=== PATIENT | male | born 1940 | race Caucasian/White ===

== ENCOUNTER 2018-10-13 17:30 | Outpatient (RCR) | payer MEDICARE, OTHER, SELFPAY ==
--- NOTE | 2018-08-13 08:19 | HP.PTEVAL_ITS ---
Patient's Visit Information ANA ROSA FABIAN is a 77 year old M referred to Physical Therapy by MANDI GAONA with a diagnosis of L/S fusion. Date of Evaluation: 08/13/18 Physical Therapist: Juan Manuel Mcnally, PT, ATC - Visit Plan Frequency: 2x /Week Duration: 6 Weeks Plan: Postural education, SKTC/DKTC, LTR, core strenthening, nustep, and HEP - Subjective Findings: DOS: 06/12/18. Pt had L/S fusion L3-5. Pt reports prior to having surgery, his LB was really sore and notes he had L LE pain that extended to his foot. The L LE pain is gone now, but pt reports he continues to have LBP and B hip pain that is very limiting. Pt reports he was told to just rest for the first six weeks, and then to begin PT at that time. 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 Pt reports he has a hard time sleeping for more than 6 hours secondary to pain. 2/10 pain at rest currently, 5/10 pain at worst which is if he walking a lot. - Pain L/S Pain Intensity (Out of 10): 2 Pain Intensity Range: 5 - Objective Neuro: B LE sensation is WNL to light touch. MMT: B LE's 5/5 throughout. L/S ROM: flexion is WNL. All other movements are moderately limited. Gait: Pt is able to ambulate approximately 150 feet until he feels pain in his LB and needs to rest. - Goals Goal 1:: Decreas LBP x 50% to aid with sleep Goal Time Frame: 4-6 Weeks Goal 2:: Increase L/S ROM x 1 grade to aid with IADL's Goal Time Frame: 4-6 Weeks Goal 3:: I with HEP Goal Time Frame: 4-6 Weeks - Rehabilitation Potential Physical Therapy Diagnosis: Pt has LBP, decreased L/S ROM, and intolerance for prolonged ambulation secondary to lumbar spine fusion Rehabilitation Potential: Good - Anticipated Interventions Patient/Client Instruction: Educate patient on: Condition, Plan of Care For the Purpose of:: To improve self management Therapeutic Exercise to Include: Strength training, Endurance training, Body mechanics, Postural training, Flexibilty training, Dynamic Lumbar Stabilization For the Purpose of:: To decrease pain, To increase ROM, To improve muscle performance and motor function Cryotherapy (ice pack, ice massage): Yes For the Purpose of:: To decrease pain Thank you for the opportunity to evaluate your patient. For Medicare and Medicare HMO plans, please review the plan of care and approve it. It will need to be FAXED BACK to us at [phone] for Medicare purposes. For Medicare only, by signing this I certify the plan of care. Please let me know if there are questions or concerns regarding this plan of care. Physician Signature: Date:
--- NOTE | 2019-01-08 11:20 | HP.PT.NRP ---
HP - Discharge Summary (1) - Patient Information ANA ROSA FABIAN was seen in my office for initial evaluation on 08/13/18. The following Plan of Care was established for this patient: Initial Frequency: 2x /Week Initial Duration: 6 Weeks - Anticipated Interventions Patient/Client Instruction: Educate patient on: Condition, Plan of Care For the Purpose of:: To improve self management Therapeutic Exercise to Include: Strength training, Endurance training, Body mechanics, Postural training, Flexibilty training, Dynamic Lumbar Stabilization For the Purpose of:: To decrease pain, To increase ROM, To improve muscle performance and motor function Cryotherapy (ice pack, ice massage): Yes For the Purpose of:: To decrease pain This patient was last seen in our office . Pertinent comments regarding their Physical therapy will appear below: Pt was treated for 8 PT visits for his LBP through the date of 10/13/18. Pt has not returned through todays date, and is discontinued at this time. At this point I will be discontinuing this patient from physical therapy. I would be happy to see this patient again in the future if found appropriate by the physician. Thank you! Juan Manuel Mcnally, PT, ATC
== END 2018-10-13 19:00 | disposition home or self-care (01) ==
LOC: PT 17:30
DX: M16.12 Unilateral primary osteoarthritis, left hip (principal); M43.16 Spondylolisthesis, lumbar region; M47.896 Other spondylosis, lumbar region; M48.062 Spinal stenosis, lumbar region with neurogenic claudication; M48.07 Spinal stenosis, lumbosacral region; M51.36 Other intervertebral disc degeneration, lumbar region; M54.16 Radiculopathy, lumbar region; M54.5 Low back pain
CPT/HCPCS: 97110; 97161

== ENCOUNTER 2022-10-12 17:21 | Inpatient (IN) | payer MEDICARE, OTHER, SELFPAY ==
[2022-10-12] VITALS (7 sets, daily range): BP systolic 129–189; BP diastolic 60–77; PULSE 77–108; RESP 14–28; TEMP 36.3–38.1; O2SAT 94–98; BMI 40.7; BMI 40.2
--- NOTE | 2022-10-12 17:34 | EDS_ITS ---
HPI History of Present Illness Chief Complaint: Palpitations Detail of Chief Complaint: Possible A-fib Informant: patient Narrative Narrative: Patient presents from PCPs office secondary to possible A-fib. He states he went to see his PCP because he is just felt sick for the last 2 days. He states he just felt very weak and had difficulty getting around. He has had a mild cough. No fever noted but did have chills this morning. No vomiting or diarrhea. He denies chest pain, shortness of breath, or palpitations to me. [facility] Medical History Anxiety High cholesterol Hypertension Lumbar radiculopathy Home Medications albuterol sulfate 90 mcg/actuation aerosol inhaler inhalation 10/12/22 [History Last Taken Unknown] alprazolam 0.5 mg tablet mg 10/12/22 [History Last Taken Unknown] ascorbic acid (vitamin C) 1,000 mg tablet,extended release (Vitamin C ER) 1,000 mg PO Q12H 10/12/22 [History Last Taken Unknown] cholecalciferol (vitamin D3) 25 mcg (1,000 unit) tablet (Vitamin D3) 10/12/22 [History Last Taken Unknown] fluticasone propionate 50 mcg/actuation nasal spray,suspension intranasal 10/12/22 [History Last Taken Unknown] furosemide 40 mg tablet (Lasix) 40 mg PO DAILY 10/12/22 [History Last Taken Unknown] gabapentin 300 mg tablet 300 mg PO 4X/DAY 10/12/22 [History Last Taken Unknown] metoprolol tartrate 25 mg tablet mg 10/12/22 [History Last Taken Unknown] mirtazapine 30 mg tablet 30 mg PO QHS 10/12/22 [History Last Taken Unknown] multivitamin tab 10/12/22 [History Last Taken Unknown] promethazine-DM 10/12/22 [History Last Taken Unknown] rosuvastatin 5 mg tablet 5 mg PO DAILY 10/12/22 [History Last Taken Unknown] valsartan 160 mg tablet 160 mg PO DAILY 10/12/22 [History Last Taken Unknown] venlafaxine 150 mg capsule,extended release 24 hr 150 mg PO DAILY 10/12/22 [History Last Taken Unknown] vitamin B12 1,000 mcg-folic acid 400 mcg sublingual tablet tab sublingual 10/12/22 [History Last Taken Unknown] Allergy/AdvReac Type Severity Reaction Status Date / Time morphine Allergy Shortness Verified 10/12/22 17:23 of breath Surgical History Heart valve replaced Social History Smoking Status: Former smoker ROS ROS ED Constitutional Constitutional ED: Reports chills; Denies fever(s) Eyes Eyes: Denies change in vision or discharge from eye(s) ENT ENT ED: Denies discharge from eye(s), rhinorrhea or sore throat Cardiovascular Cardiovascular: Denies chest pain or palpitations Respiratory/Chest Respiratory/Chest: Reports cough; Denies dyspnea Gastrointestinal Gastrointestinal: Denies abdominal pain, diarrhea, nausea or vomiting Genitourinary Genitourinary ED: Denies dysuria Musculoskeletal Musculoskeletal: Reports myalgias; Denies back pain or extremity pain Integumentary Denies Abrasions or rash Neurologic Neurologic: Reports weakness; Denies headache(s) Psychiatric Psychiatric: Denies anxiety or depression Allergic/Immunologic Allergic/Immunologic ED: Denies lip swelling or urticaria EXAM Physical Exam Const Vital Signs: 10/12/22 17:23 10/12/22 17:49 10/12/22 17:50 Temperature 97.4 F L Temperature Source Temporal Pulse Rate 108 H 98 Respiratory Rate 18 14 Respiratory Effort Normal Blood Pressure 189/77 H Blood Pressure Mean 114 Pulse Ox 97 Oxygen Delivery Method Room Air 10/12/22 19:33 Temperature 99.2 F H Temperature Source Oral Pulse Rate 77 Respiratory Rate 28 H Respiratory Effort Blood Pressure 129/60 H Blood Pressure Mean 83 Pulse Ox 94 Oxygen Delivery Method Room Air Positive well nourished and well developed General Appearance ED: well developed HEENT Reports normocephalic and head/scalp atraumatic Eyes PERRL and EOMs intact bilaterally Neck supple Chest Wall inspection of chest normal and palpation of chest normal Resp normal respiratory effort and clear to auscultation bilaterally Cardio regular rate and regular rhythm GI normal to inspection, nondistended, normoactive bowel sounds Palpation: soft Extremity normal to inspection Neuro oriented x3 Neuro Narrative: No focal neurologic deficits Sensorium / Orientation: alert Psych mental status grossly normal Skin no rashes or lesions noted MDM MDM MDM Narrative Medical decision making narrative: Patient placed on compliance monitor. EKG obtained to evaluate for cardiac arrhythmia/ischemia. Labwork obtained to evaluate for leukocytosis, anemia, and electrolyte derangement. Urinalysis obtained to evaluate for infection/hematuria. Lab Data Attestation: I reviewed the patient's lab results. Labs: Laboratory Results - last 24 hr 10/12/22 10/12/22 10/12/22 17:46 17:46 19:00 WBC 23.6 H RBC 4.66 Hgb 14.9 Hct 45.3 MCV 97.2 H MCH 32.0 MCHC 32.9 RDW Std Deviation 45.4 H RDW Coeff of [place] 12.8 Plt Count 129 L MPV 10.3 Immature Gran % (Auto) 0.700 Neut % (Auto) 86.8 H Lymph % (Auto) 4.2 L [place] % (Auto) 8.0 Eos % (Auto) 0.0 Baso % (Auto) 0.3 Absolute Neuts (auto) 20.5 H Absolute Lymphs (auto) 0.99 Nucleated RBC % 0 Differential Comment SCANNED Diff Path Review May foll Sodium 136 Potassium 3.9 Chloride 108 H Carbon Dioxide 22.0 Anion Gap 6 BUN 20 H Creatinine 1.58 H Estim Creat Clear Calc 34.86 Est GFR (MDRD) Af Amer 55 L Est GFR (MDRD) Non-Af 45 L BUN/Creatinine Ratio 12.7 Glucose 126 H Lactic Acid Calcium 8.7 Troponin I High Sens 38 Urine Color Yellow Urine Clarity Sl. Cloudy Urine pH 5.0 Ur Specific [place] 1.020 Urine Protein 30 H Urine Glucose (UA) Normal Urine Ketones 5 H Urine Occult Blood 25 H Urine Nitrite Positive H Urine Bilirubin 1 H Urine Urobilinogen 4 H Ur Leukocyte Esterase 500 H Urine RBC 0-5 SEEN Urine WBC 25-50 SEEN Ur Squamous Epith Cells 0 SEEN Urine Bacteria 3+ Urine Mucus 0 SEEN 10/12/22 10/12/22 19:45 20:47 WBC RBC Hgb Hct MCV MCH MCHC RDW Std Deviation RDW Coeff of [place] Plt Count MPV Immature Gran % (Auto) Neut % (Auto) Lymph % (Auto) [place] % (Auto) Eos % (Auto) Baso % (Auto) Absolute Neuts (auto) Absolute Lymphs (auto) Nucleated RBC % Differential Comment Diff Path Review Sodium Potassium Chloride Carbon Dioxide Anion Gap BUN Creatinine Estim Creat Clear Calc Est GFR (MDRD) Af Amer Est GFR (MDRD) Non-Af BUN/Creatinine Ratio Glucose Lactic Acid Cancelled 1.8 Calcium Troponin I High Sens Urine Color Urine Clarity Urine pH Ur Specific [place] Urine Protein Urine Glucose (UA) Urine Ketones Urine Occult Blood Urine Nitrite Urine Bilirubin Urine Urobilinogen Ur Leukocyte Esterase Urine RBC Urine WBC Ur Squamous Epith Cells Urine Bacteria Urine Mucus Radiography Diagnostic Testing: Clinical Impression(s) from Imaging Studies Chest X-Ray 10/12/22 18:00 IMPRESSION: No acute cardiopulmonary disease. Electronically Signed: Kandy Winston MD at 18:19 EDT Reading Location ID and State: [id number] / Tel , Service support , Treatment and Re-Evaluation :: CBC was a white count of 23.6 with 87% neutrophils. Chemistry studies reveal a BUN of 20 and a creatinine of 1.58. Last creatinine I have to compare to is from 7 years ago and at that time was 1.22. Urinalysis is positive for nitrites with 25-50 white cells and 3+ bacteria. Urine has been sent for culture and he is given a dose of Rocephin. Lactic acid is obtained and is normal at 1.8. Blood cultures were sent. EKG is sinus rhythm with marked sinus arrhythmia. Bifascicular block noted. The EKG from the primary care office is reviewed. This appears to me to be sinus rhythm with PVC. There is baseline artifact making the P waves difficult to visualize, however the QRS complexes are evenly spaced and I do believe this is a sinus rhythm. Patient ambulated with nursing staff. He was weak. He does tell me that he f ell earlier today and was too weak to get himself up. I do feel it is in his best interest for observation and IV antibiotics. I will speak with the hospitalist. Discharge Plan Triage Chief Complaint: Palpitations ED Provider: Janet Cade Dx/Rx/DC Orders Clinical Impression: UTI (urinary tract infection), Weakness, Fall Prescriptions: No Action furosemide [Lasix] 40 mg Tablet 40 mg PO DAILY albuterol sulfate 90 mcg/actuation Hfa Aerosol Inhaler INHALATION fluticasone propionate 50 mcg/actuation spray,suspension INTRANASAL gabapentin 300 mg Tablet 300 mg PO 4X/DAY promethazine-DM multivitamin Tablet Vitamin C 1,000 mg Tablet Extended Release 1,000 mg PO Q12H venlafaxine 150 mg Capsule,Extended Release 24hr 150 mg PO DAILY alprazolam 0.5 mg tablet mirtazapine 30 mg Tablet 30 mg PO QHS valsartan 160 mg Tablet 160 mg PO DAILY rosuvastatin 5 mg Tablet 5 mg PO DAILY metoprolol tartrate 25 mg tablet cholecalciferol (vitamin D3) [Vitamin D3] 25 mcg (1,000 unit) Tablet vitamin [id number] acid 1,000-400 mcg Tablet, Sublingual SUBLINGUAL Primary Care Provider: Khai Ibarra NP Referrals: Care Physician,No Primary [Non-Staff] - Disposition Disposition: Acute Care Hospital [facility], [place]
--- NOTE | 2022-10-12 17:34 | EKG12_ITS ---
Test Reason : Blood Pressure : / mmHG Vent. Rate : 074 BPM Atrial Rate : 074 BPM P-R Int : 214 ms QRS Dur : 150 ms QT Int : 432 ms P-R-T Axes : 099 -55 041 degrees QTc Int : 479 ms Sinus rhythm with marked sinus arrhythmia with 1st degree A-V block Right bundle branch block Left anterior fascicular block Bifascicular block Abnormal ECG Confirmed by JACQUELINE MANZANO, MARTHA ([id number]), makeup editor WANDA HUERTA ([id number]) on 10/15/2022 11:04:48 AM Referred By: RIVERA Confirmed By:MARTHA PHILLIPS MD
[2022-10-12 17:56] LABS: Absolute Lymphocyte Count 0.99 X10^3/uL (0.83-4.51); Absolute Neutrophil Count 20.5 X10^3/uL (2.0-7.7); Basophil# 0.08 X10^3/uL; Basophil% 0.3 % (0-1); Eosinophil# 0.01 X10^3/uL; Hematocrit 45.3 % (40-54); Hemoglobin 14.9 g/dL (13.0-16.5); Lymphocyte # 0.99 X10^3/ul (0.83-4.51); Lymphocyte % 4.2 % (19-41); Mean Corp Hgb Conc 32.9 g/dL (32-36); Mean Corpuscular Volume 97.2 fL (80-94); Mean Platelet Vol. 10.3 fl (6.2-12.0); Monocyte# 1.89 X10^3/uL; NRBC Flagged by Analyzer 0 % (0-5); Neutrophil # 20.45 X10^3/uL (2.7-7.7); Neutrophil % 86.8 % (47-70); POSITIVE DIFFERENTIAL YES; Platelet Count 129 K/mm3 (150-450); RBC Distribution Width CV 12.8 % (11.6-14.6); RBC Distribution Width SD 45.4 fl (35.1-43.9); Red Blood Count 4.66 M/mm3 (4.6-6.2); White Blood Count 23.6 K/mm3 (4.4-11.0)
--- NOTE | 2022-10-12 18:00 | RAD_ITS ---
INDICATION: cough EXAMINATION/TECHNIQUE: X-RAY - XR Chest 1 View COMPARISON: 05/14/2016. FINDINGS: LINES/DEVICES: None. LUNGS: No consolidation, edema or effusion. No pneumothorax. MEDIASTINUM AND CARDIOVASCULAR STRUCTURES: Cardiac silhouette not enlarged. Prior sternotomy and aortic valve replacement. Central airways and mediastinal contour are unremarkable. BONES AND SOFT TISSUES: Prior cervical fusion. RAD/Chest 1 View (Portable) IMPRESSION: No acute cardiopulmonary disease. Electronically Signed: Kandy Winston MD at 18:19 EDT Reading Location ID and State: [id number] / Tel , Service support ,
[2022-10-12] MEDS: 0.9% Normal Saline 1,000 ML 150 ML IV (18:01)
[2022-10-12 18:18] LABS: Differential Indicated SCAN CRITERIA MET
[2022-10-12 18:24] LABS: Anion Gap 6 (5-15); BUN 20 mg/dL (7-18); BUN/Creat Ratio 12.7 RATIO (10-20); Calcium,Total 8.7 mg/dL (8.5-10.1); Chloride 108 mmol/L (98-107); Creatinine, Serum 1.58 mg/dL (0.70-1.30); EST Glomerular Filtration Rate 45 mL/min (>60); Est Glom Filt Rate - Afr Amer 55 mL/min (>60); Estimated Creatinine Clearance 34.86 ml/min; Glucose 126 mg/dL (74-106); Potassium 3.9 mmol/L (3.5-5.1); Sodium Level 136 mmol/L (136-145); Troponin-I HS 38 pg/mL (3.0-78.0)
[2022-10-12 18:31] LABS: Differential Comment SCANNED
[2022-10-12 19:12] LABS: Color, Urine Yellow (Yellow); Glucose, Dipstick Normal (Normal); Ketone-Dipstick 5 mg/dl (Negative); Leukocyte Esterase-Dipstick 500 /ul (Negative); Nitrite-Dipstick Positive (Negative); Occult Blood-Urine 25 /ul (Negative); Protein-Dipstick 30 mg/dl (Negative); Urine Bilirubin Dipstick 1 mg/dL (Negative); Urine Clarity Sl. Cloudy (Clear); Urine Urobilinogen 4 mg/dl (Normal)
[2022-10-12 19:15] LABS: Mucous, Urine 0 SEEN /hpf (<or=2+); Squamous Epithelial Cells - UA 0 SEEN /hpf (0-5)
[2022-10-12 19:23] LABS: Bacteria 3+ /hpf (None Seen); White Blood Cells 25-50 SEEN /hpf (0-5)
[2022-10-12 19:24] LABS: Red Blood Cells-Urine 0-5 SEEN /hpf (0-5)
[2022-10-12] MEDS: Ceftriaxone 1 GM/50 ML BAG IV (19:51)
--- NOTE | 2022-10-12 20:43 | ED.RN ---
called lab to inquire about lactic acid. reports hemolyzed.
[2022-10-12 21:17] LABS: Lactic Acid 1.8 mmol/L (0.4-1.9)
--- NOTE | 2022-10-12 21:35 | HP.PCM.HOS_ITS ---
HPI - General General Date of Admission: 10/12/22 Date of Service: 10/12/22 Chief Complaint: Debility, Weakness. HPI Narrative The patient is an 82 y/o M w/ PMHx: Anxiety and Depression, Former tobacco use, Chronic anemia, Valvular Heart Disease s/p AVR Bovine w/ wires still in place not a candidate for MRI of note, CKD stage III unclear subtype, Chronic Thrombocytopenia, Anxiety and Depression, HTN, HLD, Chronic lumbar back pain with radiculopathy who presents to the [facility] ED on 10/12/2022 with history of increased fatigue and malaise with mild cough with no fever however he did have chills on a.m. of day of presentation with no nausea, emesis, diarrhea, dyspnea but did state his heart was mildly increased prompting PCP evaluation and in the office PCP was concerned for EKG with ? new onset PAF prompting referral to the ED for further work-up. In the ED upon further questioning he does admit to dysuria as well as frequency and hesitancy over the last 2 days. He denies any other type of upper respiratory type symptoms. Work-up in the ED included T97.4, heart initially 108 with most recent repeat 98, BP 189/77, respiratory r ate 18, 97% oxygenation, CBC with WC 23.6, hemoglobin 14.9, platelet 129 with significant left shift, BMP with chloride 108, BUN/creat 20/1.58, glucose 128, troponin 38, lactic acid 1.8, urinalysis with elevated specific gravity 1.020, protein 30, ketone 5, occult blood 25, urine nitrite positive, urine bilirubin 1, urine urobilinogen 4, leukocyte esterase 500, urine to BCs 25-50 with 3+ urine bacteria, chest x-ray with no acute cardiopulmonary findings, SARS COVID and influenza antigen rapid negative, urine culture pending per ED, blood culture x2 pending per ED, EKG was sinus rhythm with occasional PVC although baseline artifact makes P waves difficult to visualize. In the ED attempted to walk patient however he was significantly weak and did report to the staff that he was unable to even get himself up at home secondary to his weakness with notably elevated fall risk. He does report that he fell at home earlier in the day already. In the ED patient ministered normal saline maintenance IV fluids as well as Rocephin 1 g IV. [facility] Medical History Allergic rhinitis Anxiety and depression Chronic anemia Chronic idiopathic thrombocytopenia CKD (chronic kidney disease), stage III Former tobacco use High cholesterol Hypertension Lumbar radiculopathy Valvular heart disease Home Medications albuterol sulfate 90 mcg/actuation aerosol inhaler inhalation 10/12/22 [History Last Taken Unknown] alprazolam 0.5 mg tablet mg 10/12/22 [History Last Taken Unknown] ascorbic acid (vitamin C) 1,000 mg tablet,extended release (Vitamin C ER) 1,000 mg PO Q12H 10/12/22 [History Last Taken Unknown] cholecalciferol (vitamin D3) 25 mcg (1,000 unit) tablet (Vitamin D3) 10/12/22 [History Last Taken Unknown] fluticasone propionate 50 mcg/actuation nasal spray,suspension intranasal 10/12/22 [History Last Taken Unknown] furosemide 40 mg tablet (Lasix) 40 mg PO DAILY 10/12/22 [History Last Taken Unknown] gabapentin 300 mg tablet 300 mg PO 4X/DAY 10/12/22 [History Last Taken Unknown] metoprolol tartrate 25 mg tablet mg 10/12/22 [History Last Taken Unknown] mirtazapine 30 mg tablet 30 mg PO QHS 10/12/22 [History Last Taken Unknown] multivitamin tab 10/12/22 [History Last Taken Unknown] promethazine-DM 10/12/22 [History Last Taken Unknown] rosuvastatin 5 mg tablet 5 mg PO DAILY 10/12/22 [History Last Taken Unknown] valsartan 160 mg tablet 160 mg PO DAILY 10/12/22 [History Last Taken Unknown] venlafaxine 150 mg capsule,extended release 24 hr 150 mg PO DAILY 10/12/22 [History Last Taken Unknown] vitamin B12 1,000 mcg-folic acid 400 mcg sublingual tablet tab sublingual 10/12/22 [History Last Taken Unknown] Allergy/AdvReac Type Severity Reaction Status Date / Time morphine Allergy Shortness Verified 10/12/22 17:23 of breath Family History (Updated 10/12/22 @ 22:[address] Mariama Jansen MD) Mother Anemia Glaucoma Father Prostate cancer Surgical History Heart valve replaced S/P total knee replacement Social History (Updated 10/12/22 @ 22:[address] Mariama Jansen MD) household members: none Smoking Status: Former smoker how long ago did patient quit smoking: Smoked 1 ppd teen until quit 1967 after of his daughter. alcohol intake: never substance use type: does not use ROS ROS Narrative Admission Review of Systems: CONSTITUTIONAL: No weight loss, fever, chills, + weakness or fatigue. HEENT: Eyes: No visual loss, blurred vision, double vision or yellow sclerae. Ears, Nose, Throat: No hearing loss, sneezing, congestion, runny nose or sore throat. SKIN: No rash or itching, lesions, wounds. CARDIOVASCULAR: + Mild chronic BL LE ankle/pedal edema. No chest pain, chest pressure or chest discomfort, palpitations, orthopnea, syncopal events. RESPIRATORY: + Mild nonproductive cough. No shortness of breath, wheezing, hemoptysis. GASTROINTESTINAL: No anorexia, nausea, vomiting or diarrhea, abdominal pain, melena, BRBPR. GENITOURINARY: + dysuria, frequency, hesitancy, No urgency or retention. NEUROLOGICAL: No headache, dizziness, syncope, paralysis, ataxia, numbness or tingling in the extremities, focal weakness, change in bowel or bladder control, seizure. MUSCULOSKELETAL: + muscle, back pain, joint pain or stiffness. HEMATOLOGIC: No anemia, bleeding or bruising. LYMPHATICS: No enlarged nodes. No history of splenectomy. PSYCHIATRIC: No history of depression or anxiety. ENDOCRINOLOGIC: No reports of sweating, cold or heat intolerance. No polyuria or polydipsia. ALLERGIES: + history of rhinitis. Vital Signs Vital Signs Vital Signs: 10/12/22 17:23 10/12/22 17:49 10/12/22 17:50 Temperature 97.4 F L Temperature Source Temporal Pulse Rate 108 H 98 Respiratory Rate 18 14 Respiratory Effort Normal Blood Pressure 189/77 H Blood Pressure Mean 114 Pulse Ox 97 Oxygen Delivery Method Room Air 10/12/22 19:33 Temperature 99.2 F H Temperature Source Oral Pulse Rate 77 Respiratory Rate 28 H Respiratory Effort Blood Pressure 129/60 H Blood Pressure Mean 83 Pulse Ox 94 Oxygen Delivery Method Room Air Weight Weight: 260 lb Body Mass Index (BMI) 40.7 Physical Exam Narrative Physical Examination: General: Awake, alert, oriented x 3 and cooperative, seated upright in the ED bed in no apparent distress, fatigued appearing. Skin: Normal color, normal turgor, no icterus, no cyanosis. HEENT: AT/NC, EOMI, PERRLA, mildly dry MM, no carotid bruits or JVD noted; however thickened neck and dee hair makes evaluation difficult. Lungs: Mild diminished, greater bases, appropriate effort, no rales, ronchi or wheezing. Heart: Currently regular rate and rhythm; no gallop, rub audible, s/p AVR. Abdomen: Soft, morbidly obese, NTTP except mild suprapubic discomfort, ND, hyperactive BS, no obvious HSM however habitus makes evaluation difficult. Extremities: No cyanosis, no clubbing, mild pedal edema bilaterally. Neurological: Patient awake, alert, oriented as noted, cognitive function intact; pupils equally reactive to light and accommodation, cranial nerves grossly normal, moving all 4 extremities, no focal deficits, strength moderately global decrease secondary to acute presentation complaints. Psychiatric: Affect appears mildly fatigued otherwise normal, no acute evidence of depressive or anxiety feelings. Results Lab / Micro Data Result Diagrams: 10/12/22 17:46 10/12/22 17:46 Labs: Laboratory Results - last 24 hr 10/12/22 17:46: WBC 23.6 H, RBC 4.66, Hgb 14.9, Hct 45.3, MCV 97.2 H, MCH 32.0, MCHC 32.9, RDW Std Deviation 45.4 H, RDW Coeff of [place] 12.8, Plt Count 129 L, MPV 10.3, Immature Gran % (Auto) 0.700, Neut % (Auto) 86.8 H, Lymph % (Auto) 4.2 L, [place] % (Auto) 8.0, Eos % (Auto) 0.0, Baso % (Auto) 0.3, Absolute Neuts (auto) 20.5 H, Absolute Lymphs (auto) 0.99, Nucleated RBC % 0, Differential Comment SCANNED, Diff Path Review October10/12/22 17:46: Sodium 136, Potassium 3.9, Chloride 108 H, Carbon Dioxide 22.0, Anion Gap 6, BUN 20 H, Creatinine 1.58 H, Estim Creat Clear Calc 34.86, Est GFR (MDRD) Af Amer 55 L, Est GFR (MDRD) Non-Af 45 L, BUN/Creatinine Ratio 12.7, Glucose 126 H, Calcium 8.7, Troponin I High Sens 38 10/12/22 19:00: Urine Color Yellow, Urine Clarity Sl. Cloudy, Urine pH 5.0, Ur Specific [place] 1.020, Urine Protein 30 H, Urine Glucose (UA) Normal, Urine Ketones 5 H, Urine Occult Blood 25 H, Urine Nitrite Positive H, Urine Bilirubin 1 H, Urine Urobilinogen 4 H, Ur Leukocyte Esterase 500 H, Urine RBC 0-5 SEEN, Urine WBC 25-50 SEEN, Ur Squamous Epith Cells 0 SEEN, Urine Bacteria 3+, Urine Mucus 0 SEEN 10/12/22 19:45: Lactic Acid Cancelled 10/12/22 20:47: Lactic Acid 1.8 Micro: Microbiology 10/12/22 17:40 Nasal Secretion SARS-CoV-2 & FLU Antigen (Rapid) - Final Radiology Impression Chest X-Ray 10/12/22 18:00 IMPRESSION: No acute cardiopulmonary disease. Electronically Signed: Kandy Winston MD at 18:19 EDT Reading Location ID and State: [id number] / Tel , Service support , Assessment & Plan Assessment/Plan (1) UTI (urinary tract infection): PLAN: Plan The patient is an 82 y/o M w/ PMHx: Anxiety and Depression, Former tobacco use, Chronic anemia, Valvular Heart Disease s/p AVR Bovine w/ wires still in place not a candidate for MRI of note, CKD stage III unclear subtype, Chronic Thrombocytopenia, Anxiety and Depression, HTN, HLD, Chronic lumbar back pain with radiculopathy who presents to the [facility] ED on 10/12/2022 with history of increased fatigue and malaise with mild cough with no fever however he did have chills on a.m. of day of presentation with no nausea, emesis, diarrhea, dyspnea but did state his heart was mildly increased prompting PCP evaluation and in the office PCP was concerned for EKG with ? new onset PAF prompting referral to the ED for further work-up. #1. Acute Debility, Weakness, Adult FTT w/ Fall and elevated repeat Fall risk secondary to Acute Complicated Urinary Tract Infection: Will admit to MS, UA upon ED evaluation remarkable, pending UCx, continue IVFs, monitor I/Os, continue IV Rocephin w/ transition as able pending sensitivities and speciation. PT/OT/CM consultations for discharge planning. Blood culture x2 pending per ED. #2. Chronic anemia: Admission hemoglobin currently 14.9 however in the past in 2015 patient baseline appears primarily 9-10 but last prior to current presentation 05/21/2016 11.2, MCV at those times initially normocytic but eventually mildly macrocytic, will repeat CBC in AM. #3. Valvular heart disease: s/p AV replacement with bovine valve, presumed bioprosthetic as not chronically anticoagulated, encourage continued outpatient follow-up with cardiology as previously arranged, had been following with Dr. Medina and is now following with his LEAN MANUFACTURING LEADER. #4. CKD stage III, unclear subtype: Admission BUN/creatinine 20/1.58, baseline prior noted primarily 1.2 up to 1.5, continue to trend. #5. Chronic thrombocytopenia: Patient with chart evidence of prior thrombocytopenia, baseline has primarily been 120s to 130s when it is lower otherwise patient has been 150s, these values however have been remote, admission platelet 129, will continue to trend. #6. Anxiety and depression: We will continue patient home venlafaxine and low- dose alprazolam regimen, clarifying if also on mirtazapine. #7. Former tobacco use: Encourage continued tobacco cessation. #8. Hypertension: Continue home regimen including valsartan, metoprolol, Lasix with hold parameters as needed, PRN hydralazine. #9. Hyperlipidemia: We will continue patient on statin therapy. #10. Allergic rhinitis: We will continue patient home fluticasone regimen. #11. Chronic lumbar back pain with radiculopathy: We will continue patient on gabapentin regimen, maintain on fall precautions, therapies consulted as noted. #12. DVT prophylaxis: Lovenox cautiously given chronic thrombocytopenia. #13. CODE status: Patient HCPOA and living will are not in place however patient does report that if he needed medical decisions made on his behalf his daughter and his son who are present would be his decision makers. Discussed CODE status at length including difference between FULL code, DNR-CCA and DNR-CC status. Following discussions about the differences in these status, requested Full Code status. Advanced Care Planning Face to Face Time:16 minutes. Admission Evaluation Time spent evaluating chart, patient history, patient evaluation, care planning and discussion with specialists: 55 minutes. Charges/Coding Visit Charges Inpatient E&M: 14649 Init Hosp L2 Procedures Hospitalists Procedures: 99181 Advncd Care Plan 30 Min
[2022-10-12] MEDS: Acetaminophen 500 MG Tablet 1000 MG PO (22:12)
[2022-10-12] MEDS: 0.9% Normal Saline 1,000 ML 100 ML IV (23:16)
[2022-10-12] MEDS: Metoprolol Tartrate 25 MG Tablet PO (23:17)
[2022-10-12] MEDS: Mirtazapine 30 MG Tablet PO (23:17)
[2022-10-12] MEDS: Gabapentin 300 MG Capsule PO (23:25)
[2022-10-13] VITALS (7 sets, daily range): BP systolic 114–135; BP diastolic 46–106; PULSE 74–79; RESP 16–19; TEMP 36.7–37.4; O2SAT 92–97; BMI 40.3
[2022-10-13 06:32] LABS: Absolute Lymphocyte Count 1.17 X10^3/uL (0.83-4.51); Absolute Neutrophil Count 17.4 X10^3/uL (2.0-7.7); Basophil# 0.07 X10^3/uL; Basophil% 0.3 % (0-1); Eosinophil# 0.13 X10^3/uL; Eosinophils% 0.6 % (0-5); Hematocrit 43.6 % (40-54); Lymphocyte # 1.17 X10^3/ul (0.83-4.51); Lymphocyte % 5.7 % (19-41); Mean Corp Hgb Conc 32.1 g/dL (32-36); Mean Corpuscular Hgb 31.7 pg (27.0-32.0); Mean Corpuscular Volume 98.9 fL (80-94); Mean Platelet Vol. 10.5 fl (6.2-12.0); Monocyte# 1.68 X10^3/uL; Monocyte% 8.2 % (0-10); NRBC Flagged by Analyzer 0 % (0-5); Neutrophil # 17.36 X10^3/uL (2.7-7.7); Neutrophil % 84.4 % (47-70); POSITIVE DIFFERENTIAL YES; Platelet Count 100 K/mm3 (150-450); RBC Distribution Width CV 12.7 % (11.6-14.6); RBC Distribution Width SD 46.6 fl (35.1-43.9); Red Blood Count 4.41 M/mm3 (4.6-6.2); White Blood Count 20.6 K/mm3 (4.4-11.0)
[2022-10-13 07:00] LABS: ALB/GLOB Ratio 0.8 RATIO (0.9-2.4); AST(SGOT) 20 U/L (15-37); Alanine Aminotransfer ALT/SGPT 20 U/L (16-61); Albumin, Serum 2.7 g/dL (3.2-5.0); Alkaline Phosphatase 87 U/L (45-117); Anion Gap 3 (5-15); BUN 21 mg/dL (7-18); Calcium,Total 8.6 mg/dL (8.5-10.1); Chloride 112 mmol/L (98-107); Creatinine, Serum 1.31 mg/dL (0.70-1.30); EST Glomerular Filtration Rate 56 mL/min (>60); Est Glom Filt Rate - Afr Amer 68 mL/min (>60); Estimated Creatinine Clearance 42.05 ml/min; Globulin 3.4 g/dL (2.2-4.2); Glucose 117 mg/dL (74-106); Protein, Total 6.1 g/dL (6.4-8.2); Sodium Level 139 mmol/L (136-145)
[2022-10-13 07:12] LABS: Differential Indicated SCAN CRITERIA MET
--- NOTE | 2022-10-13 07:23 | PN.HOSP_ITS ---
Reason for Visit Reason for Visit: Diagnoses Urinary tract infection, site not specified (10/12/22) Subjective Subjective Complains of penile pain. Objective Data Objective Data Vital Signs: Vital Signs Temp Pulse Resp BP Pulse Ox O2 Del Method 37.4 C H 76 16 122/47 H 94 Room Air 10/13/22 05:36 10/13/22 05:36 10/13/22 05:36 10/13/22 05:36 10/13/22 05:36 10/13/22 05:36 Oxygen Delivery Method Room Air Weight: 116.5 kg Body Mass Index (BMI) 40.3 Intake & Output: Intake and Output for Last 24 Hours 10/11/22 10/12/22 10/13/22 23:59 23:59 23:59 Intake Total 1050 / 1150 300 / 300 Balance 1050 / 1150 300 / 300 Lab / Micro Data Result Diagrams: 10/13/22 05:20 10/13/22 05:20 Labs: Laboratory Results - last 24 hr 10/12/22 17:46: WBC 23.6 H, RBC 4.66, Hgb 14.9, Hct 45.3, MCV 97.2 H, MCH 32.0, MCHC 32.9, RDW Std Deviation 45.4 H, RDW Coeff of [place] 12.8, Plt Count 129 L, MPV 10.3, Immature Gran % (Auto) 0.700, Neut % (Auto) 86.8 H, Lymph % (Auto) 4.2 L, [place] % (Auto) 8.0, Eos % (Auto) 0.0, Baso % (Auto) 0.3, Absolute Neuts (auto) 20.5 H, Absolute Lymphs (auto) 0.99, Nucleated RBC % 0, Differential Comment SCANNED, Diff Path Review October10/12/22 17:46: Sodium 136, Potassium 3.9, Chloride 108 H, Carbon Dioxide 22.0, Anion Gap 6, BUN 20 H, Creatinine 1.58 H, Estim Creat Clear Calc 34.86, Est GFR (MDRD) Af Amer 55 L, Est GFR (MDRD) Non-Af 45 L, BUN/Creatinine Ratio 12.7, Glucose 126 H, Calcium 8.7, Troponin I High Sens 38 10/12/22 17:46: Magnesium 2.0 10/12/22 19:00: Urine Color Yellow, Urine Clarity Sl. Cloudy, Urine pH 5.0, Ur Specific [place] 1.020, Urine Protein 30 H, Urine Glucose (UA) Normal, Urine Ketones 5 H, Urine Occult Blood 25 H, Urine Nitrite Positive H, Urine Bilirubin 1 H, Urine Urobilinogen 4 H, Ur Leukocyte Esterase 500 H, Urine RBC 0-5 SEEN, Urine WBC 25-50 SEEN, Ur Squamous Epith Cells 0 SEEN, Urine Bacteria 3+, Urine Mucus 0 SEEN 10/12/22 19:45: Lactic Acid Cancelled 10/12/22 20:47: Lactic Acid 1.8 10/13/22 05:20: WBC 20.6 H, RBC 4.41 L, Hgb 14.0, Hct 43.6, MCV 98.9 H, MCH 31.7, MCHC 32.1, RDW Std Deviation 46.6 H, RDW Coeff of [place] 12.7, Plt Count 100 L, MPV 10.5, Immature Gran % (Auto) 0.800, Neut % (Auto) 84.4 H, Lymph % (Auto) 5.7 L, [place] % (Auto) 8.2, Eos % (Auto) 0.6, Baso % (Auto) 0.3, Absolute Neuts (auto) 17.4 H, Absolute Lymphs (auto) 1.17, Nucleated RBC % 0 10/13/22 05:20: Sodium 139, Potassium 4.0, Chloride 112 H, Carbon Dioxide 24.0, Anion Gap 3 L, BUN 21 H, Creatinine 1.31 H, Estim Creat Clear Calc 42.05, Est GFR (MDRD) Af Amer 68, Est GFR (MDRD) Non-Af 56 L, BUN/Creatinine Ratio 16.0, Glucose 117 H, Calcium 8.6, Total Bilirubin 1.50 H, AST 20, ALT 20, Alkaline Phosphatase 87, Total Protein 6.1 L, Albumin 2.7 L, Globulin 3.4, Albumin/Globulin Ratio 0.8 L Micro: Microbiology 10/12/22 17:40 Nasal Secretion SARS-CoV-2 & FLU Antigen (Rapid) - Final Radiography Diagnostic Testing: Radiology Impression Chest X-Ray 10/12/22 18:00 IMPRESSION: No acute cardiopulmonary disease. Electronically Signed: Kandy Winston MD at 18:19 EDT Reading Location ID and State: [id number] / Tel , Service support , Physical Exam Const alert and no apparent distress HEENT head/scalp atraumatic Resp normal respiratory effort, no retractions, no use of accessory muscles and clear to auscultation bilaterally Cardio regular rate, regular rhythm, S1 normal heart sound and S2 normal heart sound GI normal to inspection, nondistended, normoactive bowel sounds, soft to palpation, non-tender and non-distended GI Narrative: : no penile edema, nor discharge. No scrotal erythema. Assessment & Plan Assessment/Plan (1) UTI (urinary tract infection): PLAN: UA concerning UCx pending, BCx pending Continue with CTX (2) Weakness: PLAN: Acute Debility, Weakness, Adult FTT w/ Fall and elevated repeat Fall risk secondary to Acute Complicated Urinary Tract Infection: PT/OT/CM consultations for discharge planning. PLAN: Plan The patient is an 82 y/o M w/ PMHx: Anxiety and Depression, Former tobacco use, Chronic anemia, Valvular Heart Disease s/p AVR Bovine w/ wires still in place not a candidate for MRI of note, CKD stage III unclear subtype, Chronic T hrombocytopenia, Anxiety and Depression, HTN, HLD, Chronic lumbar back pain with radiculopathy who presents to the [facility] ED on 10/12/2022 with history of increased fatigue and malaise with mild cough with no fever however he did have chills on a.m. of day of presentation with no nausea, emesis, diarrhea, dyspnea but did state his heart was mildly increased prompting PCP evaluation and in the office PCP was concerned for EKG with ? new onset PAF prompting referral to the ED for further work-up. Chronic conditions: * Chronic anemia: Admission hemoglobin currently 14.9 however in the past in 2016 patient baseline appears primarily 9-10 but last prior to current presentation 05/21/2016 11.2, MCV at those times initially normocytic but eventually mildly macrocytic, will repeat CBC in AM.Valvular heart disease: s/p AV replacement with bovine valve, presumed bioprosthetic as not chronically anticoagulated, encourage continued outpatient follow-up with cardiology as previously arranged, had been following with Dr. Medina and is now following with his ONLINE MERCHANDISING SPECIALIST. * CKD stage III, unclear subtype: Admission BUN/creatinine 20/1.58, baseline prior noted primarily 1.2 up to 1.5, continue to trend. * Chronic thrombocytopenia: Patient with chart evidence of prior thrombocytopenia, baseline has primarily been 120s to 130s when it is lower otherwise patient has been 150s, these values however have been remote, admission platelet 129, will continue to trend. * Anxiety and depression: We will continue patient home venlafaxine and low-dose alprazolam regimen, clarifying if also on mirtazapine. * Former tobacco use: Encourage continued tobacco cessation. * Hypertension: Continue home regimen including valsartan, metoprolol, Lasix with hold parameters as needed, PRN hydralazine. * Hyperlipidemia: We will continue patient on statin therapy. * Allergic rhinitis: We will continue patient home fluticasone regimen. * Chronic lumbar back pain with radiculopathy: We will continue patient on gabapentin regimen, maintain on fall precautions, therapies consulted as noted. DVT prophylaxis: Lovenox cautiously given chronic thrombocytopenia. CODE status: Full Code . Charges/Coding Visit Charges Inpatient E&M: 54300 Subs Hosp L2
[2022-10-13 07:30] LABS: Differential Comment SCANNED
[2022-10-13] MEDS: Enoxaparin 40 MG/0.4 ML Syringe SC (09:19)
[2022-10-13] MEDS: Metoprolol Tartrate 25 MG Tablet PO ×2 (09:19→21:28)
[2022-10-13] MEDS: Venlafaxine XR 150 MG Capsule PO (09:19)
[2022-10-13] MEDS: Furosemide 40 MG Tablet PO (09:20)
[2022-10-13] MEDS: Losartan Potassium 50 MG Tablet PO (09:20)
[2022-10-13] MEDS: Gabapentin 300 MG Capsule PO ×4 (09:25→21:29)
--- NOTE | 2022-10-13 14:30 | CASEMGMT ---
RN?CM?LOCKSTITCH TUNNEL ELASTIC OPERATOR?CM?to room to meet with patient for initial transition planning/care coordination?assessment.?RN?CM?introduced self and role at [facility].? Pt voices understanding and consents to?assessment?at this time.? Pt resting in bed in no distress at this time.? Pt is A/O at this time and answers all questions appropriately.?? Care providers, pharmacy, and demographics verified/updated at this time. PCP: DEB Ibarra Specialists: Cardiology @ [facility] Preferred Pharmacy: [facility] Insurance: [facility], [employer] Prescription Benefit: yes? Living Will/HPOA:?Pt does not currently have LW/HCPOA and interested in completing. Tanja MICHAEL, made aware. LNOK: Latosha rose. SonViktor Living Arrangements:Lives alone in 2-story home w/basement. Pt states he has a flight to go upstairs to get to the main floor and denies difficulty w/stairs. Pt states he still works daily. 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 Indep w/ADL's and IADL's. Transportation:?Pt states drives self and states no transportation concerns at this time.? DME: ?States has the following DME: has cane available but does not use, shower chair, grab bars, nebulizer, pulse ox. ?Pt states no need for further DME at this time.? HHC/SNF: No hx of either. Denies need for HHC and no needs identified. Pt wishes to return home and states has no concerns with going home at time of discharge.? Pt voices no further concerns/needs at this time.? PLAN:??Home Aime OROURKEN?RN?CM
[2022-10-13] MEDS: Mirtazapine 30 MG Tablet PO (21:29)
[2022-10-13] MEDS: Atorvastatin Calcium 10 MG Tablet PO (21:29)
[2022-10-13] MEDS: 0.9% Saline Lock 10 ML Syringe IV (21:31)
[2022-10-13] MEDS: Ceftriaxone 1 GM/50 ML BAG IV (21:31)
[2022-10-14 02:40] VITALS: BP 110/58; PULSE 75; RESP 18; TEMP 36.7; O2SAT 93
[2022-10-14 06:00] VITALS: BMI 40.4
[2022-10-14 07:32] VITALS: O2SAT 95
--- NOTE | 2022-10-14 09:06 | PN.HOSP_ITS ---
Reason for Visit Reason for Visit: Diagnoses Urinary tract infection, site not specified (10/13/22) Weakness (10/13/22) Subjective Subjective Feels well. Ready to go home. Objective Data Objective Data Vital Signs: Vital Signs Temp Pulse Resp BP Pulse Ox O2 Del Method 36.7 C 75 18 110/58 L 95 Room Air 10/14/22 02:40 10/14/22 02:40 10/14/22 02:40 10/14/22 02:40 10/14/22 07:32 10/14/22 07:32 Oxygen Delivery Method Room Air Weight: 116.8 kg Body Mass Index (BMI) 40.4 Intake & Output: Intake and Output for Last 24 Hours 10/12/22 10/13/22 10/14/22 23:59 23:59 23:59 Intake Total 1050 / 1150 2080 / 2330 400 / 400 Balance 1050 / 1150 2080 / 2330 400 / 400 Lab / Micro Data Result Diagrams: 10/14/22 09:50 10/13/22 05:20 Micro: Microbiology 10/12/22 19:00 Urine, Clean Catch Urine Culture - Final Escherichia coli 10/12/22 17:40 Nasal Secretion SARS-CoV-2 & FLU Antigen (Rapid) - Final Physical Exam Const alert and no apparent distress Constitutional Narrative: up in chair. non-toxic. HEENT head/scalp atraumatic Resp no retractions Neuro Sensorium / Orientation: awake and alert Psych affect normal Assessment & Plan Assessment/Plan (1) UTI (urinary tract infection): PLAN: UCx shows E. coli, lopez-sensitive BCx thus far negative Change to Bactrim and treat for total of 7 days Patient states that he been having symptoms with dysuria for a few weeks and was having difficulty controlling his bladder. Since initiation of antibiotics, and those symptoms have resolved. Patient advised if he has any dysuria or urinary incontinence to let his primary care provider know immediately. (2) Weakness: PLAN: Improved Acute Debility, Weakness, Adult FTT w/ Fall and elevated repeat Fall risk se condary to Acute Complicated Urinary Tract Infection: PT/OT/CM consultations for discharge planning. Pt declining SNF/HHC (3) Leukocytosis: PLAN: 2/2 infection improving. PLAN: Plan The patient is an 82 y/o M w/ PMHx: Anxiety and Depression, Former tobacco use, Chronic anemia, Valvular Heart Disease s/p AVR Bovine w/ wires still in place not a candidate for MRI of note, CKD stage III unclear subtype, Chronic Thrombo cytopenia, Anxiety and Depression, HTN, HLD, Chronic lumbar back pain with radiculopathy who presents to the [facility] ED on 10/12/2022 with history of increased fatigue and malaise with mild cough with no fever however he did have chills on a.m. of day of presentation with no nausea, emesis, diarrhea, dyspnea but did state his heart was mildly increased prompting PCP evaluation and in the office PCP was concerned for EKG with ? new onset PAF prompting referral to the ED for further work-up. Chronic conditions: * Chronic anemia: Admission hemoglobin currently 14.9 however in the past in 2016 patient baseline appears primarily 9-10 but last prior to current presentation 05/21/2016 11.2, MCV at those times initially normocytic but eventually mildly macrocytic, will repeat CBC in AM.Valvular heart disease: s/p AV replacement with bovine valve, presumed bioprosthetic as not chronically anticoagulated, encourage continued outpatient follow-up with cardiology as previously arranged, had been following with Dr. Medina and is now following with his PHOTOCOPY OPERATOR. * CKD stage III, unclear subtype: Admission BUN/creatinine 20/1.58, baseline prior noted primarily 1.2 up to 1.5, continue to trend. * Chronic thrombocytopenia: Patient with chart evidence of prior thrombocytopenia, baseline has primarily been 120s to 130s when it is lower otherwise patient has been 150s, these values however have been remote, a dmission platelet 129, will continue to trend. * Anxiety and depression: We will continue patient home venlafaxine and low-dose alprazolam regimen, clarifying if also on mirtazapine. * Former tobacco use: Encourage continued tobacco cessation. * Hypertension: Continue home regimen including valsartan, metoprolol, Lasix with hold parameters as needed, PRN hydralazine. * Hyperlipidemia: We will continue patient on statin therapy. * Allergic rhinitis: We will continue patient home fluticasone regimen. * Chronic lumbar back pain with radiculopathy: We will continue patient on gabapentin regimen, maintain on fall precautions, therapies consulted as noted. DVT prophylaxis: Lovenox cautiously given chronic thrombocytopenia. CODE status: Full Code . Discharge home
[2022-10-14] MEDS: Venlafaxine XR 150 MG Capsule PO (09:44)
[2022-10-14] MEDS: Enoxaparin 40 MG/0.4 ML Syringe SC (09:44)
[2022-10-14] MEDS: Gabapentin 300 MG Capsule PO (09:46)
[2022-10-14 09:48] VITALS: BP 95/50; PULSE 67; RESP 18; TEMP 36.8; O2SAT 95
[2022-10-14 10:23] LABS: Absolute Lymphocyte Count 0.77 X10^3/uL (0.83-4.51); Absolute Neutrophil Count 11.1 X10^3/uL (2.0-7.7); Basophil# 0.03 X10^3/uL; Basophil% 0.2 % (0-1); Eosinophil# 0.24 X10^3/uL; Eosinophils% 1.9 % (0-5); Hematocrit 40.2 % (40-54); Hemoglobin 13.1 g/dL (13.0-16.5); Lymphocyte # 0.77 X10^3/ul (0.83-4.51); Mean Corp Hgb Conc 32.6 g/dL (32-36); Mean Corpuscular Hgb 31.8 pg (27.0-32.0); Mean Corpuscular Volume 97.6 fL (80-94); Mean Platelet Vol. 10.6 fl (6.2-12.0); Monocyte# 0.57 X10^3/uL; Monocyte% 4.5 % (0-10); NRBC Flagged by Analyzer 0 % (0-5); Neutrophil # 11.08 X10^3/uL (2.7-7.7); Neutrophil % 86.8 % (47-70); Platelet Count 106 K/mm3 (150-450); RBC Distribution Width CV 12.8 % (11.6-14.6); RBC Distribution Width SD 46.1 fl (35.1-43.9); Red Blood Count 4.12 M/mm3 (4.6-6.2); White Blood Count 12.8 K/mm3 (4.4-11.0)
--- NOTE | 2022-10-14 10:30 | PCM.DC ---
Discharge Instructions Diet Discharge Diet: Low fat / Low cholesterol Dressing / Incision Call your doctor if you observe: Fever of 101 or Higher, Inability to urinate (buring with urination.) and - Follow Up Care Test Results: Test results from this visit will be discussed in further detail at your follow-up appointment, if applicable. Discharge Plan Admission Admit Date/Time: 10/13/22 13:51 Primary Reason for Your Visit: urinary tract infection. Attending Provider: Damian Oliva Primary Care Provider: Khai Ibarra NP Consulting Providers: Mariama Jansen Discharge Orders/Prescriptions Prescriptions: New sulfamethoxazole-trimethoprim [Bactrim DS] 800-160 mg tablet 1 tab PO Q12H Qty: 10 0RF Continued furosemide [Lasix] 40 mg Tablet 40 mg PO DAILY PRN (Reason: fluid) gabapentin 300 mg Tablet 300 mg PO 4X/DAY multivitamin Tablet 1 tab PO DAILY Vitamin C 1,000 mg Tablet Extended Release 1,000 mg PO Q12H venlafaxine 150 mg Capsule,Extended Release 24hr 150 mg PO DAILY alprazolam 0.5 mg tablet 0.5 mg PO DAILY mirtazapine 30 mg Tablet 30 mg PO QHS valsartan 160 mg Tablet 160 mg PO DAILY rosuvastatin 5 mg Tablet 5 mg PO DAILY metoprolol tartrate 25 mg tablet 25 mg PO BID cholecalciferol (vitamin D3) [Vitamin D3] 25 mcg (1,000 unit) Tablet 25 mcg PO DAILY vitamin [id number] acid 1,000-400 mcg Tablet, Sublingual 1 tab SUBLINGUAL DAILY Referrals / Follow Up: Care Physician,No Primary [Non-Staff] - Khai Ibarra NP, ASSISTANT GUEST SERVICES MANAGER-C [Primary Care Provider] - Disposition Disposition (needs filled in before D/C Order can be placed): Home, Self Care
--- NOTE | 2022-10-14 10:34 | PCM.DC.SUM ---
Providers Date of Admission: 10/13/22 Primary Care Physician: Khai Ibarra, CUSTOM FEED MILL OPERATOR HELPER-C Reason For Visit: UTI, FALLS, ADULT FTT Diagnosis Discharge Diagnosis (1) UTI (urinary tract infection): Status: Acute Code(s): N39.0 - Urinary tract infection, site not specified Plan: UCx shows E. coli, lopez-sensitive BCx thus far negative Change to Bactrim and treat for total of 7 days Patient states that he been having symptoms with dysuria for a few weeks and was having difficulty controlling his bladder. Since initiation of antibiotics, and those symptoms have resolved. Patient advised if he has any dysuria or urinary incontinence to let his primary care provider know immediately. (2) Weakness: Status: Acute Code(s): R53.1 - Weakness Plan: Improved Acute Debility, Weakness, Adult FTT w/ Fall and elevated repeat Fall risk secondary to Acute Complicated Urinary Tract Infection: PT/OT/CM consultations for discharge planning. Pt declining SNF/HHC (3) Leukocytosis: Status: Acute Code(s): D72.829 - Elevated white blood cell count, unspecified Plan: 2/2 infection improving. Plan The patient is an 82 y/o M w/ PMHx: Anxiety and Depression, Former tobacco use, Chronic anemia, Valvular Heart Disease s/p AVR Bovine w/ wires still in place not a candidate for MRI of note, CKD stage III unclear subtype, Chronic Thrombocytopenia, Anxiety and Depression, HTN, HLD, Chronic lumbar back pain with radiculopathy who presents to the [facility] ED on 10/12/2022 with history of increased fatigue and malaise with mild cough with no fever however he did have chills on a.m. of day of presentation with no nausea, emesis, diarrhea, dyspnea but did state his heart was mildly increased prompting PCP evaluation and in the office PCP was concerned for EKG with ? new onset PAF prompting referral to the ED for further work-up. Chronic conditions: Chronic anemia: Admission hemoglobin currently 14.9 however in the past in 2016 patient baseline appears primarily 9-10 but last prior to current presentation 05/21/2016 11.2, MCV at those times initially normocytic but eventually mildly macrocytic, will repeat CBC in AM.Valvular heart disease: s/p AV replacement with bovine valve, presumed bioprosthetic as not chronically anticoagulated, encourage continued outpatient follow-up with cardiology as previously arranged, had been following with Dr. Medina and is now following with his CUSTOM FEED MILL OPERATOR HELPER. CKD stage III, unclear subtype: Admission BUN/creatinine 20/1.58, baseline prior noted primarily 1.2 up to 1.5, continue to trend. Chronic thrombocytopenia: Patient with chart evidence of prior thrombocytopenia, baseline has primarily been 120s to 130s when it is lower otherwise patient has been 150s, these values however have been remote, admission platelet 129, will continue to trend. Anxiety and depression: We will continue patient home venlafaxine and low-dose alprazolam regimen, clarifying if also on mirtazapine. Former tobacco use: Encourage continued tobacco cessation. Hypertension: Continue home regimen including valsartan, metoprolol, Lasix with hold parameters as needed, PRN hydralazine. Hyperlipidemia: We will continue patient on statin therapy. Allergic rhinitis: We will continue patient home fluticasone regimen. Chronic lumbar back pain with radiculopathy: We will continue patient on gabapentin regimen, maintain on fall precautions, therapies consulted as noted. DVT prophylaxis: Lovenox cautiously given chronic thrombocytopenia. CODE status: Full Code . Discharge home Medications at Discharge Home Medications alprazolam 0.5 mg tablet 0.5 mg PO DAILY 10/12/22 ascorbic acid (vitamin C) 1,000 mg tablet,extended release (Vitamin C ER) 1,000 mg PO Q12H 10/12/22 cholecalciferol (vitamin D3) 25 mcg (1,000 unit) tablet (Vitamin D3) 25 mcg PO DAILY 10/12/22 furosemide 40 mg tablet (Lasix) 40 mg PO DAILY PRN fluid 10/12/22 gabapentin 300 mg tablet 300 mg PO 4X/DAY 10/12/22 metoprolol tartrate 25 mg tablet 25 mg PO BID 10/12/22 mirtazapine 30 mg tablet 30 mg PO QHS 10/12/22 multivitamin 1 tab PO DAILY 10/12/22 rosuvastatin 5 mg tablet 5 mg PO DAILY 10/12/22 valsartan 160 mg tablet 160 mg PO DAILY 10/12/22 venlafaxine 150 mg capsule,extended release 24 hr 150 mg PO DAILY 10/12/22 vitamin B12 1,000 mcg-folic acid 400 mcg sublingual tablet 1 tab sublingual DAILY 10/12/22 sulfamethoxazole 800 mg-trimethoprim 160 mg tablet (Bactrim DS) 1 tab PO Q12H #10 tabs 10/14/22 Hospital Course Operations None Procedures None Summary of Care Provided Minutes Spent on Discharge: 28 Hospital Course: 82-year-old male presents with weakness and dysuria. Dysuria been going on for few weeks prior to arrival but did not seek attention for that. Patient was found to have urinary tract infection and started on ceftriaxone. Patient started feeling better. Initial thoughts the patient may require [facility] but patient is overall feeling better and active. Urine culture showed pansensitive E. coli. Patient will be discharged to complete a 7-day course of antibiotics with Bactrim. Weight / BMI Weight Weight: 116.8 kg Body Mass Index (BMI) 40.4 ABG / Lab / Microbiology Data Result Diagrams: 10/14/22 09:50 10/13/22 05:20 Laboratory: Laboratory Results - last 24 hr 10/14/22 09:50: WBC 12.8 H, RBC 4.12 L, Hgb 13.1, Hct 40.2, MCV 97.6 H, MCH 31.8, MCHC 32.6, RDW Std Deviation 46.1 H, RDW Coeff of Sloane 12.8, Plt Count 106 L, MPV 10.6, Immature Gran % (Auto) 0.600, Neut % (Auto) 86.8 H, Lymph % (Auto) 6.0 L, Upson % (Auto) 4.5, Eos % (Auto) 1.9, Baso % (Auto) 0.2, Absolute Neuts (auto) 11.1 H, Absolute Lymphs (auto) 0.77 L, Nucleated RBC % 0 Microbiology: Microbiology 10/12/22 19:00 Urine, Clean Catch Urine Culture - Final Escherichia coli 10/12/22 17:40 Nasal Secretion SARS-CoV-2 & FLU Antigen (Rapid) - Final D/C Instructions Discharge Diet: Low fat / Low cholesterol Call your doctor if you observe: Fever of 101 or Higher, Inability to urinate (buring with urination.) and - Meaningful Use Info Meaningful Use Diagnoses (Choose all that apply): None applicable Discharge Plan Admission Admit Date/Time: 10/13/22 13:51 Primary Reason for Your Visit: urinary tract infection. Attending Provider: Damian Oliva Primary Care Provider: Khai Ibarra NP Consulting Providers: Mariama Jansen Discharge Orders/Prescriptions Prescriptions: New sulfamethoxazole-trimethoprim [Bactrim DS] 800-160 mg tablet 1 tab PO Q12H Qty: 10 0RF Continued furosemide [Lasix] 40 mg Tablet 40 mg PO DAILY PRN (Reason: fluid) gabapentin 300 mg Tablet 300 mg PO 4X/DAY multivitamin Tablet 1 tab PO DAILY Vitamin C 1,000 mg Tablet Extended Release 1,000 mg PO Q12H venlafaxine 150 mg Capsule,Extended Release 24hr 150 mg PO DAILY alprazolam 0.5 mg tablet 0.5 mg PO DAILY mirtazapine 30 mg Tablet 30 mg PO QHS valsartan 160 mg Tablet 160 mg PO DAILY rosuvastatin 5 mg Tablet 5 mg PO DAILY metoprolol tartrate 25 mg tablet 25 mg PO BID cholecalciferol (vitamin D3) [Vitamin D3] 25 mcg (1,000 unit) Tablet 25 mcg PO DAILY vitamin [id number] acid 1,000-400 mcg Tablet, Sublingual 1 tab SUBLINGUAL DAILY Referrals / Follow Up: Care Physician,No Primary [Non-Staff] - Khai Ibarra CUSTOM FEED MILL OPERATOR HELPER, CUSTOM FEED MILL OPERATOR HELPER-C [Primary Care Provider] - Disposition Disposition (needs filled in before D/C Order can be placed): Home, Self Care Charges/Coding Visit Charges Inpatient E&M: 14051 Disch Hosp
[2022-10-14 11:38] VITALS: BP 107/55; PULSE 70
[2022-10-15 11:57] LABS: Pathologist Review Reviewed
[2022-10-15 12:15] LABS: Pathologist Review Reviewed
== END 2022-10-14 12:32 | disposition home or self-care (01) | DRG 690 ==
LOC: ED 21:40 → MS3 21:49
PROVIDERS: Admitting Provider Family Medicine; Emergency Provider Emergency Medicine; PCP Nurse Practitioner Family
DX: N39.0 Urinary tract infection, site not specified (principal); Z68.41 Body mass index [BMI] 40.0-44.9, adult; D63.1 Anemia in chronic kidney disease; D69.6 Thrombocytopenia, unspecified; N18.30 Chronic kidney disease, stage 3 unspecified; I48.0 Paroxysmal atrial fibrillation; E78.00 Pure hypercholesterolemia, unspecified; J30.9 Allergic rhinitis, unspecified; F41.9 Anxiety disorder, unspecified; M54.16 Radiculopathy, lumbar region; I12.9 Hypertensive chronic kidney disease with stage 1 through stage 4 chronic kidney disease, or unspecified chronic kidney disease; G89.29 Other chronic pain; R53.81 Other malaise; B96.20 Unspecified Escherichia coli [E. coli] as the cause of diseases classified elsewhere; F32.A Depression, unspecified; R29.6 Repeated falls; R62.7 Adult failure to thrive; Z95.3 Presence of xenogenic heart valve; Z79.899 Other long term (current) drug therapy; Z87.891 Personal history of nicotine dependence
CPT/HCPCS: 36415; 71045; 80048; 80053; 81001; 83605; 83735; 84484; 85025; 87040; 87077; 87086; 87088; 87186; 87428; 93005; 97116; 97161; 97165; 97530; 99285; J7030; J7050; A4216

== ENCOUNTER 2024-01-06 09:35 | Emergency (ER) | payer OTHER, MEDICARE, SELFPAY ==
[2024-01-06 09:36] VITALS: BP 210/81; PULSE 92; RESP 16; TEMP 36.6; O2SAT 96; BMI 40.6
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
[2024-01-06 10:49] LABS: Absolute Neutrophil Count 12.8 X10^3/uL (2.0-7.7); Basophil# 0.07 X10^3/uL; Basophil% 0.5 % (0-1); Eosinophil# 0.06 X10^3/uL; Eosinophils% 0.4 % (0-5); Hematocrit 43.3 % (40-54); Hemoglobin 14.4 g/dL (13.0-16.5); Lymphocyte % 6.1 % (19-41); Mean Corp Hgb Conc 33.3 g/dL (32-36); Mean Corpuscular Hgb 31.3 pg (27.0-32.0); Mean Corpuscular Volume 94.1 fL (80-94); Monocyte# 0.83 X10^3/uL; Monocyte% 5.6 % (0-10); NRBC Flagged by Analyzer 0 % (0-5); Neutrophil # 12.78 X10^3/uL (2.7-7.7); Neutrophil % 86.8 % (47-70); Platelet Count 114 K/mm3 (150-450); RBC Distribution Width CV 12.7 % (11.6-14.6); RBC Distribution Width SD 43.7 fl (35.1-43.9); White Blood Count 14.7 K/mm3 (4.4-11.0)
[2024-01-06] MEDS: Diphth,Pertuss(Acell),Tet Vac 0.5 ML Vial IM (10:59)
[2024-01-06 11:01] LABS: ALB/GLOB Ratio 0.9 RATIO (0.9-2.4); AST(SGOT) 31 U/L (15-37); Alanine Aminotransfer ALT/SGPT 17 U/L (16-61); Albumin, Serum 3.2 g/dL (3.2-5.0); Alkaline Phosphatase 105 U/L (45-117); Anion Gap 8 (5-15); BUN 19 mg/dL (7-18); BUN/Creat Ratio 11.4 RATIO (10-20); Calcium,Total 8.7 mg/dL (8.5-10.1); Chloride 109 mmol/L (98-107); Creatinine, Serum 1.67 mg/dL (0.70-1.30); EST Glomerular Filtration Rate 42 mL/min (>60); Est Glom Filt Rate - Afr Amer 51 mL/min (>60); Estimated Creatinine Clearance 42.52 ml/min; Globulin 3.4 g/dL (2.2-4.2); Glucose 167 mg/dL (74-106); Lipase 26 U/L (13-75); Potassium 3.6 mmol/L (3.5-5.1); Protein, Total 6.6 g/dL (6.4-8.2); Sodium Level 142 mmol/L (136-145)
[2024-01-06 12:01] VITALS: BP 219/54; PULSE 83; RESP 16; O2SAT 97
[2024-01-06] MEDS: fentaNYL 100 MCG/2 ML Ampul 50 MCG IV (12:03)
[2024-01-06 12:04] LABS: Bacteria 0 SEEN /hpf (None Seen); Mucous, Urine 0 SEEN /hpf (<or=2+); Squamous Epithelial Cells - UA 0 SEEN /hpf (0-5)
[2024-01-06 12:07] LABS: Color, Urine Yellow (Yellow); Glucose, Dipstick 50 mg/dl (Normal); Ketone-Dipstick 5 mg/dl (Negative); Leukocyte Esterase-Dipstick Negative /ul (Negative); Nitrite-Dipstick Negative (Negative); Occult Blood-Urine 150 /ul (Negative); Protein-Dipstick 30 mg/dl (Negative); Specific Gravity, Urine 1.025 (1.002-1.030); Urine Bilirubin Dipstick Negative (Negative); Urine Clarity Sl. Cloudy (Clear); Urine Urobilinogen Normal (Normal)
[2024-01-06 12:14] LABS: Red Blood Cells-Urine 5-10 SEEN /hpf (0-5); White Blood Cells 0-5 SEEN /hpf (0-5)
[2024-01-06 13:00] VITALS: BP 169/74; PULSE 77; RESP 20; O2SAT 99
[2024-01-06 14:00] VITALS: PULSE 79; RESP 18; O2SAT 97
--- NOTE | 2024-01-06 14:37 | ED.RN ---
THIS RN SPOKE WITH [employer]IA RIOS, THE HOME MORTGAGE DISCLOSURE ACT SPECIALIST OF THE [employer]. [employer]IA RIOS STATES THIS WILL NOT BE FILED UNDER [employer]. PATIENT AND DAUGHTER AGREED THEY DID NOT WANT TO FILE A CLAIM
[2024-01-06 14:56] VITALS: BP 169/74; PULSE 90; RESP 16; TEMP 36.3; O2SAT 96
== END 2024-01-06 14:58 | disposition home or self-care (01) ==
PROVIDERS: Emergency Provider Emergency Medicine; PCP Nurse Practitioner Family; Visit Provider Emergency Medicine
DX: S22.42XA Multiple fractures of ribs, left side, initial encounter for closed fracture (principal); N18.30 Chronic kidney disease, stage 3 unspecified; I12.9 Hypertensive chronic kidney disease with stage 1 through stage 4 chronic kidney disease, or unspecified chronic kidney disease; E78.00 Pure hypercholesterolemia, unspecified; S50.812A Abrasion of left forearm, initial encounter; S51.812A Laceration without foreign body of left forearm, initial encounter; V43.52XA Car driver injured in collision with other type car in traffic accident, initial encounter; Y93.89 Activity, other specified; Z79.899 Other long term (current) drug therapy; Z87.891 Personal history of nicotine dependence
CPT/HCPCS: 12001; 70450; 71250; 72125; 74176; 80053; 81001; 83690; 85025; 90715; 96374; 99284; A4216

== ENCOUNTER 2024-06-06 18:42 | Inpatient (IN) | payer MEDICARE, OTHER, SELFPAY ==
[2024-06-06] VITALS (9 sets, daily range): BP systolic 170–189; BP diastolic 56–73; PULSE 50–92; RESP 16–19; TEMP 36.2–37.2; O2SAT 89–95; BMI 37.3; BMI 34.2
--- NOTE | 2024-06-06 18:55 | EKG12_ITS ---
Test Reason : DYSRHYTHMIA Blood Pressure : */* mmHG Vent. Rate : 83 BPM Atrial Rate : 83 BPM P-R Int : 212 ms QRS Dur : 136 ms QT Int : 390 ms P-R-T Axes : 61 -51 61 degrees QTcB Int : 458 ms Sinus rhythm with 1st degree A-V block Right bundle branch block Left anterior fascicular block Bifascicular block Abnormal ECG Confirmed by ANEESH MANZANO, JOSE RAMON ([id number]), continuity editor WANDA HUERTA ([id number]) on 06/10/2024 1:39:12 P M Referred By: SRIDHAR Confirmed By: JOSE RAMON MELENDREZ MD
[2024-06-06 19:12] LABS: Absolute Lymphocyte Count 0.96 X10^3/uL (0.83-4.51); Absolute Neutrophil Count 9.1 X10^3/uL (2.0-7.7); Basophil# 0.06 X10^3/uL; Basophil% 0.5 % (0-1); Eosinophil# 0.05 X10^3/uL; Eosinophils% 0.4 % (0-5); Hematocrit 43.7 % (40-54); Hemoglobin 14.3 g/dL (13.0-16.5); Lymphocyte # 0.96 X10^3/ul (0.83-4.51); Lymphocyte % 8.6 % (19-41); Mean Corp Hgb Conc 32.7 g/dL (32-36); Mean Corpuscular Hgb 31.4 pg (27.0-32.0); Mean Platelet Vol. 11.2 fl (6.2-12.0); Monocyte% 8.9 % (0-10); NRBC Flagged by Analyzer 0 % (0-5); Neutrophil # 9.08 X10^3/uL (2.7-7.7); Neutrophil % 81.3 % (47-70); Platelet Count 105 K/mm3 (150-450); RBC Distribution Width CV 13.2 % (11.6-14.6); RBC Distribution Width SD 47.2 fl (35.1-43.9); Red Blood Count 4.55 M/mm3 (4.6-6.2); White Blood Count 11.2 K/mm3 (4.4-11.0)
--- NOTE | 2024-06-06 19:15 | RAD_ITS ---
INDICATION: SOB EXAMINATION/TECHNIQUE: X-RAY - XR Chest 2 Views COMPARISON: 10/12/2022. FINDINGS: LINES/DEVICES: None. LUNGS: Small bilateral pleural effusions. No vascular congestion or pulmonary consolidation. Calcified granuloma in the left lung. MEDIASTINUM AND CARDIOVASCULAR STRUCTURES: Cardiac silhouette not enlarged. Prior sternotomy and aortic valve replacement. Central airways and mediastinal contour are unremarkable. Calcified left hilar adenopathy. BONES AND SOFT TISSUES: Unremarkable. RAD/Chest PA and Lateral IMPRESSION: Small pleural effusions, otherwise no acute findings. Electronically Signed: Kandy Winston MD at 19:59 EST Reading Location ID and State: [id number] / Tel , Service support ,
[2024-06-06 19:29] LABS: Anion Gap 5 (5-15); BUN 22 mg/dL (7-18); BUN/Creat Ratio 16.8 RATIO (10-20); Calcium,Total 8.8 mg/dL (8.5-10.1); Chloride 112 mmol/L (98-107); Creatinine, Serum 1.31 mg/dL (0.70-1.30); EST Glomerular Filtration Rate 56 mL/min (>60); Est Glom Filt Rate - Afr Amer 67 mL/min (>60); Estimated Creatinine Clearance 51.83 ml/min; Glucose 116 mg/dL (74-106); Potassium 3.9 mmol/L (3.5-5.1); Sodium Level 144 mmol/L (136-145); Troponin-I HS 107 pg/mL (3.0-78.0)
--- NOTE | 2024-06-06 19:30 | EDS_ITS ---
<Statement entered by Endy Patel DO - 06/06/24 21:40> Patient was seen and examined with physician credit assistant Margarita All components of the history and physical confirmed and agreed. History of present illness and physical exam: Patient is a 83-year-old male past medical history of chronic anemia, chronic idiopathic thrombocytopenia, CKD stage III, anxiety, depression, hypertension who presents to the emergency department with a chief complaint of shortness of breath on exertion. He states that over the past few days he has had worsening shortness of breath with exertion. Patient states that he has had TAVR x 3. He states that he is on Lasix for lower extremity swelling but states has not taken this in the past 3 days. He states that he is unsure why he is not taking this. Review of systems: Agree with above will add on complains of lower extremity swelling and shortness of breath Physical exam: Agree with above MDM Patient is a 83-year-old male who presents to the emergency department with a chief complaint of dyspnea on exertion with worsening lower extremity swelling. Patient will have a workup performed here on the differential diagnose includes Melamin to CHF, ACS, pneumonia. Once workup is obtained reviewed he will be reevaluated. Patient CBC showed a white blood count of 11,000, hemoglobin stable 14.3, platelet count was noted to be 105 does have a history of thrombocytopenia. Patient sodium normal 144, potassium normal 3.9, creatinine was 1.31 he does have underlying chronic kidney disease. Patient's troponin was elevated to 107 and the proBNP machine is down therefore this will not be obtained. Patient's chest x-ray was reviewed by myself and by radiology which showed small pleural effusions patient does have costophrenic angle blunting noted bilaterally with concern for CHF and in the setting of 3+ pitting edema. Patient's troponin is likely elevated secondary to the hypervolemic state and is underlying chronic k idney disease. Patient does not have chest pain delta troponin will be obtained. Patient's EKG reviewed and interpreted by myself which showed sinus rhythm with a rate of 83 bpm first-degree AV block, right bundle branch block which was compared to a previous EKG on 10/12/2022 which remains largely unchanged. Patient was ambulated here in the emergency department and he desaturated to 89% on room air and became tachycardic. Patient was given 40 mg IV Lasix in case we discussed with hospitalist for admission. I did discuss the case with hospitalist Dr. Parra who will accept patient for admission. Patient was notified he is agreeable this plan all question concerns answered bedside. Final impression: Dyspnea on exertion CHF Bilateral lower extremity pitting edema Acute hypoxic respiratory failure Disposition: Patient will be admitted to the hospital for further evaluation management Supervising attending attestation: Endy RICHMOND History of Present Illness Chief Complaint: Shortness of Breath Narrative Narrative: Patient presenting today with dyspnea on exertion has been progressively worsening over the last few days. He has a PMH of anxiety, depression, former tobacco use, valvular Heart Disease s/p AVR Bovine, CKD stage III, chronic thrombocytopenia, HTN, and HLD. He denies any history of CHF. He is prescribed Lasix for lower extremity edema but has not taken it in the past 3 days. He denies fevers, chills, coughing, and chest pain. PE Risk Factors: Negative for Cancer, Prior DVT or PE, Recent immobilization, Recent surgery or Recent travel [facility] Medical History Allergic rhinitis Valvular heart disease Chronic anemia Chronic idiopathic thrombocytopenia Former tobacco use CKD (chronic kidney disease), stage III Anxiety and depression Hypertension High cholesterol Lumbar radiculopathy Home Medications ?Medication ?Instructions ?Recorded ?Last Taken ?Type alprazolam 0.5 mg tablet 0.5 mg PO DAILY 10/12/22 10/05/22 History ascorbic acid (vitamin C) 1,000 mg 1,000 mg PO Q12H 10/12/22 10/11/22 History tablet,extended release (Vitamin C ER) cholecalciferol (vitamin D3) 25 25 mcg PO DAILY 10/12/22 10/11/22 History mcg (1,000 unit) tablet (Vitamin D3) furosemide 40 mg tablet (Lasix) 40 mg PO DAILY PRN fluid 10/12/22 10/05/22 History metoprolol tartrate 25 mg tablet 25 mg PO BID 10/12/22 10/11/22 History mirtazapine 30 mg tablet 30 mg PO QHS 10/12/22 Unknown History multivitamin 1 tab PO DAILY 10/12/22 10/11/22 History rosuvastatin 5 mg tablet 5 mg PO DAILY 10/12/22 10/11/22 History vitamin B12 1,000 mcg-folic acid 1 tab sublingual DAILY 10/12/22 10/11/22 History 400 mcg sublingual tablet valsartan 320 mg tablet 320 mg PO DAILY 06/06/24 Unknown History Allergy/AdvReac Type Severity Reaction Status Date / Time morphine Allergy Shortness Verified 06/06/24 18:44 of breath Family History Mother Anemia Glaucoma Father Prostate cancer Surgical History S/P total knee replacement Heart valve replaced Social History household members: none Smoking Status: Former smoker how long ago did patient quit smoking: Smoked 1 ppd teen until quit 1967 after of his daughter. alcohol intake: never substance use type: does not use ROS ROS ED Constitutional Constitutional ED: Denies chills or fever(s) Cardiovascular Cardiovascular: Denies chest pain or palpitations Respiratory/Chest Respiratory/Chest: Reports dyspnea on exertion; Denies cough or wheezing Gastrointestinal Gastrointestinal: Denies abdominal pain, nausea or vomiting Genitourinary Genitourinary ED: Denies urinary urgency Musculoskeletal Musculoskeletal: Denies arthralgias or myalgias Integumentary Denies rash Neurologic Neurologic: Denies weakness EXAM Physical Exam Const Vital Signs: 06/06/24 18:42 06/06/24 18:47 06/06/24 18:52 Temperature 99 F Temperature Source Oral Pulse Rate 80 Respiratory Rate 19 H Respiratory Effort Short of Breath Normal Respiratory Depth Normal Respiratory Pattern Normal Normal Blood Pressure 178/73 H Blood Pressure Mean 108 Pulse Ox 94 Oxygen Delivery Method Room Air Room Air 06/06/24 19:46 06/06/24 19:53 06/06/24 20:00 Temperature Temperature Source Pulse Rate 50 L 92 Respiratory Rate 16 18 Respiratory Effort Respiratory Depth Respiratory Pattern Blood Pressure 189/56 H 170/64 H Blood Pressure Mean 100 99 Pulse Ox 93 89 95 Oxygen Delivery Method Room Air Room Air Room Air 06/06/24 20:10 Temperature 99 F Temperature Source Pulse Rate 88 Respiratory Rate 19 H Respiratory Effort Respiratory Depth Respiratory Pattern Blood Pressure 170/64 H Blood Pressure Mean 99 Pulse Ox 95 Oxygen Delivery Method Positive well nourished, well developed and no apparent distress General Appearance ED: well developed HEENT Reports normocephalic and head/scalp atraumatic Mouth ED: Yes moist mucous membranes normal Eyes PERRL and EOMs intact bilaterally Neck full ROM and supple Chest Wall inspection of chest normal Resp normal respiratory effort and clear to auscultation bilaterally Cardio regular rate and regular rhythm GI soft to palpation, non-tender, non-distended and no masses Back/Spine normal ROM and normal to inspection Extremity full ROM Extremity Narrative: 3+ pitting edema to the bilateral lower extremities Neuro oriented x3, CN's II-XII intact bilaterally, moves all extremities, no focal motor deficits and no sensory deficits noted Sensorium / Orientation: awake and alert Psych mental status grossly normal and thought process normal Skin no rashes or lesions noted and no wounds MDM MDM MDM Narrative Medical decision making narrative: Patient presenting today with dyspnea on exertion he has had over the last few days. He is nontoxic-appearing. He does have 3+ bilateral lower extremity pitting edema and has not taken his Lasix in the past few days, he was given 40 mg IV Lasix here. Cardiac workup obtained. He does have a elevated troponin at 107, suspect this is likely due to his edema and CHF exacerbation. We are unable to get a BNP at this time. Low suspicion for PE given low Wells score. Chest x-ray shows small bilateral pleural effusions. With ambulating he did desaturate below 90% O2 saturation. I do feel he would benefit from admission to the hospital for further workup, diuresis, and further treatment. He will be admitted in stable condition. Lab Data Attestation: I reviewed the patient's lab results. Lab results narrative: WBC 11.2, platelet count 105, BUN 22, creatinine 1.31, troponin 107 Labs: Laboratory Results - last 24 hr 06/06/24 18:59 WBC 11.2 H RBC 4.55 L Hgb 14.3 Hct 43.7 MCV 96.0 H MCH 31.4 MCHC 32.7 RDW Std Deviation 47.2 H RDW Coeff of Sloane 13.2 Plt Count 105 L MPV 11.2 Immature Gran % (Auto) 0.300 Neut % (Auto) 81.3 H Lymph % (Auto) 8.6 L [place] % (Auto) 8.9 Eos % (Auto) 0.4 Baso % (Auto) 0.5 Absolute Neuts (auto) 9.1 H Absolute Lymphs (auto) 0.96 Nucleated RBC % 0 Sodium 144 Potassium 3.9 Chloride 112 H Carbon Dioxide 27.0 Anion Gap 5 BUN 22 H Creatinine 1.31 H Estim Creat Clear Calc 51.83 Est GFR (MDRD) Af Amer 67 Est GFR (MDRD) Non-Af 56 L BUN/Creatinine Ratio 16.8 Glucose 116 H Calcium 8.8 Troponin I High Sens 107 H Radiography X-Ray: Read by ED Physician Diagnostic Testing: Clinical Impression(s) from Imaging Studies Chest X-Ray 06/06/24 19:15 IMPRESSION: Small pleural effusions, otherwise no acute findings. Electronically Signed: Kandy Winston MD at 19:59 EST Reading Location ID and State: [id number] / Tel , Service support , EKG Initial EKG: Comments: 83 bpm, sinus rhythm with first-degree AV block, right bundle branch block, similar EKG seen on 10/12/2022. Reviewed by attending ED physician Discharge Plan Dx/Rx/DC Orders Clinical Impression: HART (dyspnea on exertion), Elevated troponin, Pitting edema, Hypoxia, Pleural effusion Disposition Disposition: Acute Care Hospital [facility] Discharge Date/Time: 06/06/24 20:35
[2024-06-06] MEDS: Furosemide 40 MG/4 ML Vial IV (20:06)
--- NOTE | 2024-06-06 20:14 | ECHOD_ITS ---
Reason For Study: CONGESTIVE HEART FAILURE Procedure This was a 2D Doppler, Color Flow transthoracic echocardiogram. Exam performed portable in patient room. Left Ventricle Normal LV size. Mild concentric left ventricular hypertrophy. Left ventricular systolic function is normal. The left ventricular ejection fraction is 60 %. No regional wall motion abnormalities noted. Right Ventricle Normal RV size. Normal systolic function. Atria Normal left atrium. Normal right atrium. Mitral Valve Mild (1+) eccentric mitral valve insufficiency. Tricuspid Valve Normal tricuspid valve. Mild (1+) tricuspid valve insufficiency. Pulmonary artery systolic pressure is 34 mmHg. Aortic Valve Peak aortic valve gradient 36 mmHg. Mean aortic valve gradient 21 mmHg. Mild (1+) aortic valve insufficiency. Bioprosthetic aortic valve. Great Vessels Normal aortic root. The pulmonary artery is normal size. Inferior vena cava collapse with respiration. Pericardium/Pleural No pericardial effusion. MMode/2D Measurements & Calculations LVIDd: 5.1 cm IVSd: 1.4 cm LVOT diam: 2.0 cm LVIDs: 3.3 cm LVPWd: 1.3 cm LVOT area: 3.0 cm2 RVDd: 4.1 cm FS: 35.9 % asc Aorta Diam: 3.5 cm LAV(MOD-bp): 62.2 ml LVAd ap4: 35.0 cm2 LAV(MOD-bp) Indexed: 29.2 ml/m2 LVLd ap4: 8.5 cm LAV(MOD-sp2): 63.9 ml EDV(MOD-sp4): 116.6 ml LAV(MOD-sp4): 55.0 ml EDV(sp4-el): 122.1 ml LVAs ap4: 21.2 cm2 LVLs ap4: 7.5 cm ESV(MOD-sp4): 50.8 ml ESV(sp4-el): 50.8 ml EF(MOD-sp4): 56.4 % EF(sp4-el): 58.4 % SV(MOD-sp4): 65.8 ml SV(MOD-sp2): 83.0 ml LVAd ap2: 38.7 cm2 LVLd ap2: 8.6 cm SI(MOD-sp4): 31.0 ml/m2 SI(MOD-sp2): 39.1 ml/m2 EDV(MOD-sp2): 145.0 ml EDV(sp2-el): 148.5 ml LVAs ap2: 23.7 cm2 LVLs ap2: 7.5 cm ESV(MOD-sp2): 62.0 ml ESV(sp2-el): 64.1 ml EF(MOD-sp2): 57.3 % SV(sp4-el): 71.3 ml Ao sinus diam: 3.[address] Junction: 2.8 cm LA A4 area: 20.7 cm2 LA dimension(2D): 4.2 cm RA A4 area: 14.3 cm2 TAPSE: 1.5 cm Time Measurements MV dec time: 0.37 sec Doppler Measurements & Calculations MV E max mike: 76.2 cm/sec Lat Peak E' Mike: 10.1 cm/sec Med Peak E' Mike: 5.1 cm/sec MV A max mike: 71.2 cm/sec E/E' lat: 7.6 E/E' med: 14.8 MV E/A: 1.1 Ao V2 max: 303.2 cm/sec LV V1 max: 123.4 cm/sec MV dec slope: 203.2 cm/sec2 Ao max P.8 mmHg LV V1 max P.1 mmHg Ao V2 mean: 218.6 cm/sec LV V1 mean P.8 mmHg Ao mean P.2 mmHg LV V1 mean: 93.2 cm/sec Ao V2 VTI: 62.1 cm LV V1 VTI: 26.4 cm AV (velocity ratio): 0.42 DONNA(I,D): 1.3 cm2 DONNA(V,D): 1.2 cm2 SV(LVOT): 79.8 ml PA V2 max: 66.5 cm/sec TR max mike: 276.6 cm/sec TR max P.6 mmHg ECHO/Echo Complete Interpretation Summary Normal LV size. Left ventricular systolic function is normal. The left ventricular ejection fraction is 60 %. Mild concentric left ventricular hypertrophy. Bioprosthetic aortic valve. Mean aortic valve gradient 21 mmHg. Compared to the previous it does not appear that the gradients are significantl y changed. Ordering Physician: Vic Parra Performed By: Sue Ramirez RDCS
--- NOTE | 2024-06-06 20:29 | PCM.HP.STD ---
[facility] - General General Date of Admission: 06/06/24 Date of Service: 06/06/24 Chief Complaint: Shortness of breath HPI Narrative ANA ROSA FABIAN, is a 83 M with history of anxiety and Depression, Former tobacco use, Chronic anemia, Valvular Heart Disease s/p AVR Bovine w/ wires still in place not a candidate for MRI of note, CKD stage III unclear subtype, Chronic Thrombocytopenia, Anxiety and Depression, HTN, HLD, Chronic lumbar back pain with radiculopathy who presents to the ED with progressive shortness of breath since the last 3 days. For the last 3 days he has been having dyspnea with exertion, with associated orthopnea and occasional PND symptoms. He was previously prescribed Lasix 40 mg daily but has not been taking it for the last 3 weeks as he finds increased micturition annoying and it interrupts his work. There has been associated progressive weight gain and swelling over bilateral feet. He lives by himself, his has demised, children live in the area and has good social support. He notes mild febrile episode [felt warm, not documented] with no chills or rigor, no cough or URI symptoms. Does not smoke, no alcohol, no other drug use No history of coronary artery disease or arrhythmias in the past. Not on any anticoagulation At the time of presentation in the ED, Blood pressure 170/64, respiratory rate 19, pulse 88, temperature 99, his saturation decreased to 89% on ambulation WBC 11.2, hemoglobin 14.3, platelet 105, sodium 144, chloride 112, BUN 22, creatinine 1.3, proBNP is still pending X-ray chest showed small pleural effusions with no acute findings. He received 1 dose of Lasix 40 mg IV stat in the ED. [facility] Medical History Allergic rhinitis Valvular heart disease Chronic anemia Chronic idiopathic thrombocytopenia Former tobacco use CKD (chronic kidney disease), stage III Anxiety and depression Hypertension High cholesterol Lumbar radiculopathy Home Medications ?Medication ?Instructions ?Recorded ?Last Taken ?Type alprazolam 0.5 mg tablet 0.5 mg PO DAILY tremor 10/12/22 10/05/22 History ascorbic acid (vitamin C) 1,000 mg 1,000 mg PO Q12H 10/12/22 10/11/22 History tablet,extended release (Vitamin C ER) cholecalciferol (vitamin D3) 25 25 mcg PO DAILY 10/12/22 10/11/22 History mcg (1,000 unit) tablet (Vitamin D3) furosemide 40 mg tablet (Lasix) 40 mg PO DAILY PRN fluid 10/12/22 10/05/22 History metoprolol tartrate 25 mg tablet 25 mg PO BID 10/12/22 10/11/22 History mirtazapine 30 mg tablet 30 mg PO QHS 10/12/22 Unknown History multivitamin 1 tab PO DAILY 10/12/22 10/11/22 History rosuvastatin 5 mg tablet 5 mg PO DAILY 10/12/22 10/11/22 History vitamin B12 1,000 mcg-folic acid 1 tab sublingual DAILY 10/12/22 10/11/22 History 400 mcg sublingual tablet valsartan 320 mg tablet 320 mg PO DAILY 06/06/24 Unknown History Allergy/AdvReac Type Severity Reaction Status Date / Time morphine Allergy Shortness Verified 06/06/24 18:44 of breath Family History Mother Anemia Glaucoma Father Prostate cancer Surgical History S/P total knee replacement Heart valve replaced Social History household members: none Smoking Status: Former smoker how long ago did patient quit smoking: Smoked 1 ppd teen until quit 1967 after of his daughter. alcohol intake: never substance use type: does not use ROS Constitutional Constitutional: Reports anorexia, change in weight and fatigue Respiratory/Chest Respiratory/Chest: Reports dyspnea Vital Signs Vital Signs Vital Signs: 06/06/24 18:42 06/06/24 18:47 06/06/24 18:52 Temperature 99 F Temperature Source Oral Pulse Rate 80 Respiratory Rate 19 H Respiratory Effort Short of Breath Normal Respiratory Depth Normal Respiratory Pattern Normal Normal Blood Pressure 178/73 H Blood Pressure Mean 108 Pulse Ox 94 Oxygen Delivery Method Room Air Room Air 06/06/24 19:46 06/06/24 19:53 06/06/24 20:00 Temperature Temperature Source Pulse Rate 50 L 92 Respiratory Rate 16 18 Respiratory Effort Respiratory Depth Respiratory Pattern Blood Pressure 189/56 H 170/64 H Blood Pressure Mean 100 99 Pulse Ox 93 89 95 Oxygen Delivery Method Room Air Room Air Room Air 06/06/24 20:10 Temperature 99 F Temperature Source Pulse Rate 88 Respiratory Rate 19 H Respiratory Effort Respiratory Depth Respiratory Pattern Blood Pressure 170/64 H Blood Pressure Mean 99 Pulse Ox 95 Oxygen Delivery Method Weight Weight: 238 lb 1.588 oz Body Mass Index (BMI) 37.3 Physical Exam Const alert and oriented x3 HEENT normocephalic Eyes PERRL Neck no lymphadenopathy Resp Resp Narrative: Bilateral crepitations were Cardio regular rate and regular rhythm GI normal to inspection, nondistended, normoactive bowel sounds Extremity Extremity Narrative: Bilateral pitting edema extending till the knees Neuro Sensorium / Orientation: awake and alert Psych affect normal Results Lab / Micro Data 06/06/24 18:59 06/06/24 18:59 Labs: Laboratory Results - last 24 hr 06/06/24 18:59: WBC 11.2 H, RBC 4.55 L, Hgb 14.3, Hct 43.7, MCV 96.0 H, MCH 31.4, MCHC 32.7, RDW Std Deviation 47.2 H, RDW Coeff of [place]loane 13.2, Plt Count 105 L, MPV 11.2, Immature Gran % (Auto) 0.300, Neut % (Auto) 81.3 H, Lymph % (Auto) 8.6 L, [place] % (Auto) 8.9, Eos % (Auto) 0.4, Baso % (Auto) 0.5, Absolute Neuts (auto) 9.1 H, Absolute Lymphs (auto) 0.96, Nucleated RBC % 0, Sodium 144, Potassium 3.9, Chloride 112 H, Carbon Dioxide 27.0, Anion Gap 5, BUN 22 H, Creatinine 1.31 H, Estim Creat Clear Calc 51.83, Est GFR (MDRD) Af Amer 67, Est GFR (MDRD) Non-Af 56 L, BUN/Creatinine Ratio 16.8, Glucose 116 H, Calcium 8.8, Troponin I High Sens 107 H Imaging Radiology Impression Chest X-Ray 06/06/24 19:15 IMPRESSION: Small pleural effusions, otherwise no acute findings. Electronically Signed: Kandy Winston MD at 19:59 EST Reading Location ID and State: [id number] / Tel , Service support , Assessment & Plan Assessment/Plan (1) Heart failure: PLAN: Plan 83-year-old male with history of Chronic anemia, Valvular Heart Disease s/p AVR Bovine w/ wires still in place not a candidate for MRI of note, CKD stage III unclear subtype, Chronic Thrombocytopenia, Anxiety and Depression, HTN, HLD, Chronic lumbar back pain with radiculopathyebrile episode. There is no arrhythmia or any underlying ischemic event that would otherwise lead to a decompensation of heart failure. He has previously been admitted for UTI in the past and FTT. Given his history of aortic valve disease will get a repeat echocardiogram also. #Acute on chronic heart failure -Continue IV Lasix 40 mg, reassess clinical improvement -Echocardiogram to assess aortic valve and overall systolic function -Limb elevation -Nutrition consult full heart failure education and low-salt diet -Heart healthy diet -Continue metoprolol tartrate 25 mg twice daily -Continue losartan 100 mg -COVID PCR, nasal swab for viral infections #Aortic stenosis s/p aortic valve repair with bovine valves -Echocardiogram to reassess status Prior history anemia -Hemoglobin is 14, platelet count 105 #Hypertension -Continue metoprolol and losartan as above -Close monitoring admit to PCU #Dyslipidemia: Continue home medication #DVT prophylaxis: Enoxaparin 40 mg subcut #Insomnia, depression anxiety: continue mirtazapine at bedtime #Thrombocytopenia -Platelet 105 -Continue to monitor Charges/Coding Visit Charges Inpatient E&M: 58420 Init Hosp L2
[2024-06-06] MEDS: Losartan Potassium 100 MG Tablet PO (21:02)
[2024-06-06] MEDS: Ascorbic Acid 500 MG Tablet 1000 MG PO (21:03)
[2024-06-06] MEDS: Metoprolol Tartrate 25 MG Tablet PO (21:03)
[2024-06-06] MEDS: Atorvastatin Calcium 10 MG Tablet PO (21:03)
[2024-06-07] VITALS (8 sets, daily range): BP systolic 135–160; BP diastolic 43–54; PULSE 63–70; RESP 16–18; TEMP 35.6–36.8; O2SAT 94–97; BMI 34.9
[2024-06-07 06:56] LABS: Absolute Lymphocyte Count 1.68 X10^3/uL (0.83-4.51); Absolute Neutrophil Count 6.6 X10^3/uL (2.0-7.7); Basophil# 0.07 X10^3/uL; Basophil% 0.7 % (0-1); Eosinophil# 0.15 X10^3/uL; Eosinophils% 1.5 % (0-5); Hematocrit 42.6 % (40-54); Hemoglobin 14.2 g/dL (13.0-16.5); Lymphocyte # 1.68 X10^3/ul (0.83-4.51); Lymphocyte % 17.3 % (19-41); Mean Corp Hgb Conc 33.3 g/dL (32-36); Mean Corpuscular Hgb 31.8 pg (27.0-32.0); Mean Corpuscular Volume 95.5 fL (80-94); Mean Platelet Vol. 11.3 fl (6.2-12.0); Monocyte# 1.18 X10^3/uL; Monocyte% 12.2 % (0-10); NRBC Flagged by Analyzer 0 % (0-5); Neutrophil # 6.58 X10^3/uL (2.7-7.7); Neutrophil % 67.9 % (47-70); Platelet Count 106 K/mm3 (150-450); RBC Distribution Width CV 13.2 % (11.6-14.6); RBC Distribution Width SD 46.3 fl (35.1-43.9); Red Blood Count 4.46 M/mm3 (4.6-6.2); White Blood Count 9.7 K/mm3 (4.4-11.0)
[2024-06-07 06:58] LABS: International Normalized Ratio 1.1; Prothrombin Time (Protime)PT. 13.9 SECONDS (11.7-14.9)
--- NOTE | 2024-06-07 07:33 | PN.HOSP_ITS ---
Reason for Visit Reason for Visit: Diagnoses Heart failure, unspecified (06/06/24) Subjective Subjective Breathing well. Admits to stopping his furosemide because of his going to work still. Objective Data Objective Data Vital Signs: Vital Signs Temp Pulse Resp BP Pulse Ox O2 Del Method 35.6 C L 64 18 135/49 H 95 Room Air 06/07/24 03:06 06/07/24 03:06 06/07/24 03:06 06/07/24 03:06 06/07/24 03:06 06/07/24 03:06 Oxygen Delivery Method Room Air Weight: 101.3 kg Body Mass Index (BMI) 34.9 Intake & Output: Intake and Output for Last 24 Hours 06/05/24 06/06/24 06/07/24 23:59 23:59 23:59 Output Total 800 / 800 500 / 500 Balance -800 / -800 -500 / -500 Lab / Micro Data 06/07/24 06:38 06/07/24 06:38 Labs: Laboratory Results - last 24 hr 06/06/24 18:59: WBC 11.2 H, RBC 4.55 L, Hgb 14.3, Hct 43.7, MCV 96.0 H, MCH 31.4, MCHC 32.7, RDW Std Deviation 47.2 H, RDW Coeff of [place]lo[place] 13.2, Plt Count 105 L, MPV 11.2, Immature Gran % (Auto) 0.300, Neut % (Auto) 81.3 H, Lymph % (Auto) 8.6 L, [place] % (Auto) 8.9, Eos % (Auto) 0.4, Baso % (Auto) 0.5, Absolute Neuts (auto) 9.1 H, Absolute Lymphs (auto) 0.96, Nucleated RBC % 0, Sodium 144, Potassium 3.9, Chloride 112 H, Carbon Dioxide 27.0, Anion Gap 5, BUN 22 H, C reatinine 1.31 H, Estim Creat Clear Calc 51.83, Est GFR (MDRD) Af Amer 67, Est GFR (MDRD) Non-Af 56 L, BUN/Creatinine Ratio 16.8, Glucose 116 H, Calcium 8.8, T roponin I High Sens 107 H 06/07/24 06:38: WBC 9.7, RBC 4.46 L, Hgb 14.2, Hct 42.6, MCV 95.5 H, MCH 31.8, MCHC 33.3, RDW Std Deviation 46.3 H, RDW Coeff of [place] 13.2, Plt Count 106 L, MPV 11.3, Immature Gran % (Auto) 0.400, Neut % (Auto) 67.9, Lymph % (Auto) 17.3 L, M mar[place] % (Auto) 12.2 H, Eos % (Auto) 1.5, Baso % (Auto) 0.7, Absolute Neuts (auto) 6.6, Absolute Lymphs (auto) 1.68, Nucleated RBC % 0, PT 13.9, INR 1.1 Micro: Microbiology 06/06/24 Unknown Mucosa - Nose SARS-CoV-2, Influenza & RSV (PCR) - Final Radiography Diagnostic Testing: Radiology Impression Chest X-Ray 06/06/24 19:15 IMPRESSION: Small pleural effusions, otherwise no acute findings. Electronically Signed: Kandy Winston MD at 19:59 EST Reading Location ID and State: [id number] / Tel , Service support , Physical Exam Const alert and no apparent distress HEENT head/scalp atraumatic and moist oral mucous membranes Resp normal respiratory effort, no retractions, no use of accessory muscles and clear to auscultation bilaterally Cardio regular rate, regular rhythm, S1 normal heart sound and S2 normal heart sound GI normal to inspection, nondistended, normoactive bowel sounds, soft to palpation, non-tender and non-distended Extremity Extremity Narrative: Marked edema with some bilateral lower extremity erythema from the edema. Assessment & Plan Assessment/Plan (1) Heart failure: PLAN: Plan Acute CHF exacerbation * unclear type though it sounds like from what he describes it probably is reduced ejection fraction. As he says that he has an enlarged heart. Patient is lung sounds clear and he is on room air now but he does have marked lower extremity edema which I feel that he would benefit from ongoing IV diuresis. * CXR shows bilateral pulmonary edema with pleural effusoins * meds with metoprolol tartrate 25 BID, losartan 100/d and furosemide 40 IV BID. * cheeck echo * COVID/influenza/RSV negative * Will also request records from [place] see what his prior echo results have been. 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 Chronic conditoins: * aortic stenosis: s/p bovine valves. * anemia: stable * HTN: stable.on metoprolol and losartan VTE prophylaxis: enoxaparin. Disposition: To be determined. Would want watch patient an additional day to get echocardiogram as well as I think he would benefit from further IV furosemide diuresis. Hopefully he may be ready to be discharged on the . Charges/Coding Visit Charges Inpatient E&M: 65744 Subs Hosp L2
[2024-06-07 08:15] LABS: AST(SGOT) 30 U/L (15-37); Alanine Aminotransfer ALT/SGPT 34 U/L (16-61); Albumin, Serum 3.3 g/dL (3.2-5.0); Alkaline Phosphatase 95 U/L (45-117); Anion Gap 7 (5-15); BUN 23 mg/dL (7-18); BUN/Creat Ratio 17.7 RATIO (10-20); Bilirubin, Direct 0.29 mg/dL (0.00-0.30); Calcium,Total 8.7 mg/dL (8.5-10.1); Chloride 111 mmol/L (98-107); EST Glomerular Filtration Rate 56 mL/min (>60); Est Glom Filt Rate - Afr Amer 68 mL/min (>60); Estimated Creatinine Clearance 50.54 ml/min; Globulin 3.1 g/dL (2.2-4.2); Glucose 98 mg/dL (74-106); Magnesium 2.2 mg/dL (1.6-2.6); Potassium 3.4 mmol/L (3.5-5.1); Protein, Total 6.4 g/dL (6.4-8.2); Sodium Level 144 mmol/L (136-145)
[2024-06-07] MEDS: Furosemide 40 MG/4 ML Vial IV (08:38)
[2024-06-07] MEDS: Losartan Potassium 100 MG Tablet PO (08:38)
[2024-06-07] MEDS: Enoxaparin 40 MG/0.4 ML Syringe SC (08:38)
[2024-06-07] MEDS: Metoprolol Tartrate 25 MG Tablet PO ×2 (08:38→21:28)
[2024-06-07] MEDS: 0.9% Saline Lock 10 ML Syringe IV ×2 (08:39→21:28)
[2024-06-07] MEDS: Ascorbic Acid 500 MG Tablet 1000 MG PO ×2 (08:39→21:29)
[2024-06-07] MEDS: Cholecalciferol (VIT D3) 25 MCG TABLET (1,000 UNITS) PO (08:39)
[2024-06-07] MEDS: FLU VACCINE **HIGH DOSE** TV 24-25 180 MCG/0.5 ML SYRINGE IM (10:42)
[2024-06-07] MEDS: Atorvastatin Calcium 10 MG Tablet PO (21:30)
[2024-06-07] MEDS: Acetaminophen 325 MG Tablet 650 MG PO (23:03)
[2024-06-08] VITALS (7 sets, daily range): BP systolic 111–145; BP diastolic 38–46; PULSE 59–68; RESP 16–18; TEMP 36.2–36.6; O2SAT 92–98; BMI 35.3
[2024-06-08 06:16] LABS: Absolute Lymphocyte Count 1.78 X10^3/uL (0.83-4.51); Absolute Neutrophil Count 5.6 X10^3/uL (2.0-7.7); Basophil# 0.07 X10^3/uL; Basophil% 0.8 % (0-1); Eosinophils% 2.3 % (0-5); Hematocrit 40.9 % (40-54); Hemoglobin 13.6 g/dL (13.0-16.5); Lymphocyte # 1.78 X10^3/ul (0.83-4.51); Lymphocyte % 20.4 % (19-41); Mean Corp Hgb Conc 33.3 g/dL (32-36); Mean Corpuscular Hgb 31.9 pg (27.0-32.0); Mean Platelet Vol. 11.6 fl (6.2-12.0); Monocyte# 1.04 X10^3/uL; Monocyte% 11.9 % (0-10); NRBC Flagged by Analyzer 0 % (0-5); Neutrophil # 5.61 X10^3/uL (2.7-7.7); Neutrophil % 64.1 % (47-70); Platelet Count 103 K/mm3 (150-450); RBC Distribution Width CV 13.2 % (11.6-14.6); RBC Distribution Width SD 46.9 fl (35.1-43.9); Red Blood Count 4.26 M/mm3 (4.6-6.2); White Blood Count 8.7 K/mm3 (4.4-11.0)
[2024-06-08 06:41] LABS: Anion Gap 4 (5-15); BUN 28 mg/dL (7-18); BUN/Creat Ratio 21.4 RATIO (10-20); Calcium,Total 8.9 mg/dL (8.5-10.1); Chloride 110 mmol/L (98-107); Creatinine, Serum 1.31 mg/dL (0.70-1.30); EST Glomerular Filtration Rate 56 mL/min (>60); Est Glom Filt Rate - Afr Amer 67 mL/min (>60); Estimated Creatinine Clearance 50.43 ml/min; Glucose 97 mg/dL (74-106); Potassium 3.3 mmol/L (3.5-5.1); Sodium Level 143 mmol/L (136-145)
--- NOTE | 2024-06-08 08:08 | PN.HOSP_ITS ---
Reason for Visit Reason for Visit: Diagnoses Heart failure, unspecified (06/06/24) Subjective Subjective Feeling well. Objective Data Objective Data Vital Signs: Vital Signs Temp Pulse Resp BP Pulse Ox O2 Del Method 36.3 C L 59 L 18 128/40 H 97 Room Air 06/08/24 03:20 06/08/24 03:20 06/08/24 03:20 06/08/24 03:20 06/08/24 03:20 06/08/24 03:20 Oxygen Delivery Method Room Air Weight: 102.4 kg Body Mass Index (BMI) 35.3 Intake & Output: Intake and Output for Last 24 Hours 06/06/24 06/07/24 06/08/24 23:59 23:59 23:59 Intake Total 475 / 475 Output Total 800 / 800 1700 / 1700 200 / 200 Balance -800 / -800 -1225 / -1225 -200 / -200 Lab / Micro Data 06/08/24 05:23 06/08/24 05:23 Labs: Laboratory Results - last 24 hr 06/07/24 06:38: Sodium 144, Potassium 3.4 L, Chloride 111 H, Carbon Dioxide 26.0, Anion Gap 7, BUN 23 H, Creatinine 1.30, Estim Creat Clear Calc 50.54, Est GFR (MDRD) Af Amer 68, Est GFR (MDRD) Non-Af 56 L, BUN/Creatinine Ratio 17.7, Glucose 98, Calcium 8.7, Phosphorus 3.0, Magnesium 2.2, Total Bilirubin 1.10 H, Direct Bilirubin 0.29, AST 30, ALT 34, Alkaline Phosphatase 95, Total Protein 6.4, Albumin 3.3, Globulin 3.1, TSH 6.310 H 06/08/24 05:23: WBC 8.7, RBC 4.26 L, Hgb 13.6, Hct 40.9, MCV 96.0 H, MCH 31.9, MCHC 33.3, RDW Std Deviation 46.9 H, RDW Coeff of Sloane 13.2, Plt Count 103 L, MPV 11.6, Immature Gran % (Auto) 0.500, Neut % (Auto) 64.1, Lymph % (Auto) 20.4, M marcia % (Auto) 11.9 H, Eos % (Auto) 2.3, Baso % (Auto) 0.8, Absolute Neuts (auto) 5.6, Absolute Lymphs (auto) 1.78, Nucleated RBC % 0, Sodium 143, Potassium 3.3 L , Chloride 110 H, Carbon Dioxide 29.0, Anion Gap 4 L, BUN 28 H, Creatinine 1.31 H, Estim Creat Clear Calc 50.43, Est GFR (MDRD) Af Amer 67, Est GFR (MDRD) Non- Af 56 L, BUN/Creatinine Ratio 21.4 H, Glucose 97, Calcium 8.9 Micro: Microbiology 06/06/24 Unknown Mucosa - Nose SARS-CoV-2, Influenza & RSV (PCR) - Final Physical Exam Const alert and no apparent distress HEENT head/scalp atraumatic and moist oral mucous membranes Resp normal respiratory effort, no retractions, no use of accessory muscles and clear to auscultation bilaterally Cardio regular rate, regular rhythm, S1 normal heart sound and S2 normal heart sound GI normal to inspection, nondistended, normoactive bowel sounds, soft to palpation, non-tender and non-distended Extremity General Extremity: edema bilateral lower extremity Details: moderate (pitting. ) Assessment & Plan Assessment/Plan (1) Heart failure: PLAN: Plan Acute CHF exacerbation * unclear type though it sounds like from what he describes it probably is reduced ejection fraction. As he says that he has an enlarged heart. Patient is lung sounds clear and he is on room air now but he does have marked lower extremity edema which I feel that he would benefit from ongoing IV diuresis. * CXR shows bilateral pulmonary edema with pleural effusoins * meds with metoprolol tartrate 25 BID, losartan 100/d and furosemide 40 IV BID. * cheeck echo * COVID/influenza/RSV negative * Will also request records from [place] see what his prior echo results have been. 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 Chronic conditoins: * aortic stenosis: s/p bovine valves. * anemia: stable * HTN: stable.on metoprolol and losartan VTE prophylaxis: enoxaparin. Charges/Coding Visit Charges Inpatient E&M: 94466 Subs Hosp L2
[2024-06-08] MEDS: Losartan Potassium 100 MG Tablet PO (09:14)
[2024-06-08] MEDS: Enoxaparin 40 MG/0.4 ML Syringe SC (09:14)
[2024-06-08] MEDS: Metoprolol Tartrate 25 MG Tablet PO (09:14)
[2024-06-08] MEDS: Furosemide 40 MG/4 ML Vial IV (09:14)
[2024-06-08] MEDS: Cholecalciferol (VIT D3) 25 MCG TABLET (1,000 UNITS) PO (09:14)
[2024-06-08] MEDS: Ascorbic Acid 500 MG Tablet 1000 MG PO (09:14)
[2024-06-08] MEDS: 0.9% Saline Lock 10 ML Syringe IV (09:15)
[2024-06-08] MEDS: Acetaminophen 325 MG Tablet 650 MG PO (09:25)
--- NOTE | 2024-06-08 11:53 | CASEMGMT ---
MARIA FERNANDA APPLE Assessment Face to Face with patient for initial transition planning/care coordination assessment. MARIA FERNANDA APPLE introduced self and role at [facility], pt voices understanding. Pt is A&Ox4 and is resting comfortably in bed and is calm. Pt daughter at bedside. Care providers, pharmacy, and demographics verified. Admitting dx: Acute on Chronic HF LACE Strata: 2 PCP: Khai Ibarra Specialists: Lindsay Trimble (Cardio) Preferred Pharmacy: [facility] Insurance: [facility] A/B, AARP Prescription Benefit: Yes LNOK: Latosha Kay (Daughter) Living Arrangements: Pt lives alone in a 2 story home with 4 steps to enter ADLs/IADLs: Ind Transportation: Self, daughter. Denies concerns DME: Pulse ox, Nebulizer, Cane but does not use, shower chair, grab bars. CM to follow for oxygen needs HHC/SNF: Reports HH Hx through [facility]. Denies SNF Hx Pt?s goal: Return home Plan: Home with CCN. 6-Click is 22. Pt was educated about the CCN program and the pt states that he is interested in getting this set up. Pt daughter also agrees with referral. Pt daughter states that she lives an hour and a half away from the pt and that it would be nice to have someone check on the pt periodically. Order placed in [employer]. Pt denies further questions or concerns at this time. Report given to MUCK HAULER CM. Nayely Almonte RN, CM
--- NOTE | 2024-06-08 14:25 | DS.PCM_ITS ---
Providers Date of Admission: 06/06/24 Primary Care Physician: Khai Ibarra, PROCEDURES TECH-C Reason For Visit: ACUTE ON CHRONIC HEART FAILURE Diagnosis Discharge Diagnosis (1) Heart failure: Status: Acute Code(s): I50.9 - Heart failure, unspecified Plan Acute CHF exacerbation * unclear type though it sounds like from what he describes it probably is reduced ejection fraction. As he says that he has an enlarged heart. Patient is lung sounds clear and he is on room air now but he does have marked lower extremity edema which I feel that he would benefit from ongoing IV diuresis. * CXR shows bilateral pulmonary edema with pleural effusoins * meds with metoprolol tartrate 25 BID, losartan 100/d and furosemide 40 IV BID. * cheeck echo * COVID/influenza/RSV negative * Will also request records from [place] see what his prior echo results have been. 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 Chronic conditoins: * aortic stenosis: s/p bovine valves. * anemia: stable * HTN: stable.on metoprolol and losartan VTE prophylaxis: enoxaparin. Medications at Discharge Home Medications alprazolam 0.5 mg tablet 0.5 mg PO DAILY tremor 10/12/22 ascorbic acid (vitamin C) 1,000 mg tablet,extended release (Vitamin C ER) 1,000 mg PO Q12H 10/12/22 cholecalciferol (vitamin D3) 25 mcg (1,000 unit) tablet (Vitamin D3) 25 mcg PO DAILY 10/12/22 metoprolol tartrate 25 mg tablet 25 mg PO BID 10/12/22 mirtazapine 30 mg tablet 30 mg PO QHS 10/12/22 multivitamin 1 tab PO DAILY 10/12/22 rosuvastatin 5 mg tablet 5 mg PO DAILY 10/12/22 vitamin B12 1,000 mcg-folic acid 400 mcg sublingual tablet 1 tab sublingual DAILY 10/12/22 valsartan 320 mg tablet 320 mg PO DAILY 06/06/24 furosemide 40 mg tablet (Lasix) 40 mg PO DAILY fluid #30 tabs 06/08/24 potassium chloride 10 mEq capsule,extended release 10 meq PO DAILY #30 caps 06/08/24 Hospital Course Procedures 2-D Echocardiogram Summary of Care Provided Minutes Spent on Discharge: 32 Hospital Course: Patient presents with shortness of breath and was found to be in acute exacerbation of CHF. He was diuresed with IV furosemide and was overall doing well. From pulmonary perspective, he was doing well but still did have marked lower extremity edema. Echocardiogram showed an EF of 60% which is similar to what his EF has been previously through echocardiogram that we obtained through [facility]. Patient admits to having Lasix but not taking it every day. Does not know how often he takes it. It is advised that patient take his furosemide daily as well as check his weight daily and keep a record of his weights.. Weight / BMI Weight Weight: 102.4 kg Body Mass Index (BMI) 35.3 ABG / Lab / Microbiology Data 06/08/24 05:23 06/08/24 05:23 Laboratory: Laboratory Results - last 24 hr 06/08/24 05:23: WBC 8.7, RBC 4.26 L, Hgb 13.6, Hct 40.9, MCV 96.0 H, MCH 31.9, MCHC 33.3, RDW Std Deviation 46.9 H, RDW Coeff of Sloane 13.2, Plt Count 103 L, MPV 11.6, Immature Gran % (Auto) 0.500, Neut % (Auto) 64.1, Lymph % (Auto) 20.4, M marcia % (Auto) 11.9 H, Eos % (Auto) 2.3, Baso % (Auto) 0.8, Absolute Neuts (auto) 5.6, Absolute Lymphs (auto) 1.78, Nucleated RBC % 0, Sodium 143, Potassium 3.3 L , Chloride 110 H, Carbon Dioxide 29.0, Anion Gap 4 L, BUN 28 H, Creatinine 1.31 H, Estim Creat Clear Calc 50.43, Est GFR (MDRD) Af Amer 67, Est GFR (MDRD) Non- Af 56 L, BUN/Creatinine Ratio 21.4 H, Glucose 97, Calcium 8.9 Microbiology: Microbiology 06/06/24 Unknown Mucosa - Nose SARS-CoV-2, Influenza & RSV (PCR) - Final Radiography Diagnostic Testing: Radiology Impression Echocardiogram 06/06/24 20:14 Interpretation Summary Normal LV size. Left ventricular systolic function is normal. The left ventricular ejection fraction is 60 %. Mild concentric left ventricular hypertrophy. Bioprosthetic aortic valve. Mean aortic valve gradient 21 mmHg. Compared to the previous it does not appear that the gradients are significantly changed. Ordering Physician: Vic Parra Performed By: Sue Ramirez RDCS D/C Instructions Discharge Diet: - (1.5 liters of fluid/day) DC O2, CPAP, BIPAP Needs Additional Home O2 Discharge instructions: No DC home with Oxygen: No Meaningful Use Info Meaningful Use Meaningful Use Diagnoses (Choose all that apply): CHF CHF ELEAZAR/ARB ordered at discharge?: Yes Documented LVEF (%): 60 Ischemic Stroke Statin Dosing Therapy Reference: STATIN DOSE THERAPY REFERENCE: * Patients > 75 years receive moderate or high dose statin therapy. * Patients 75 years or YOUNGER should receive HIGH intensity statin dose unless contraindicated. You will be required to document reason for non-treatment if statin daily dose does not meet guidelines. HIGH DOSE STATIN THERAPY DAILY Atorvastatin > than or = to 40 mg Rosuvastatin > than or = to 20 mg Amlodipine + Atorvastatin > than or = to 2.5/40 mg Ezetimibe + Simvastatin 10/80 mg Simvastatin 80mg Discharge Plan Admission Admit Date/Time: 06/06/24 20:14 Primary Reason for Your Visit: heart failure exacerbation. Attending Provider: Damian Oliva Primary Care Provider: Khai Ibarra PROCEDURES TECH Consulting Providers: Vic Parra Instructions Additional Instructions / Restrictions: You presented with an acute heart failure exacerbation. Did recommend that you try to keep the fluid off by limiting the amount of fluid that you take in (up to 1.5 L of fluid total per day), taking furosemide daily and checking her weight. 3 important to check your weight daily and keep a record of that to see if you are starting to put on weight that could indicate that you are developing acute heart failure. Discharge Orders/Prescriptions Prescriptions: New potassium chloride 10 mEq capsule, extended release 10 meq PO DAILY Qty: 30 0RF Continued multivitamin Tablet 1 tab PO DAILY Vitamin C 1,000 mg Tablet Extended Release 1,000 mg PO Q12H alprazolam 0.5 mg tablet 0.5 mg PO DAILY mirtazapine 30 mg Tablet 30 mg PO QHS rosuvastatin 5 mg Tablet 5 mg PO DAILY metoprolol tartrate 25 mg tablet 25 mg PO BID cholecalciferol (vitamin D3) [Vitamin D3] 25 mcg (1,000 unit) Tablet 25 mcg PO DAILY vitamin [id number] acid 1,000-400 mcg Tablet, Sublingual 1 tab SUBLINGUAL DAILY valsartan 320 mg tablet 320 mg PO DAILY Changed furosemide [Lasix] 40 mg Tablet 40 mg PO DAILY Qty: 30 0RF Referrals / Follow Up: Khai Ibarra PROCEDURES TECH, PROCEDURES TECH-C [Primary Care Provider] - Within 2 Weeks Disposition Disposition (needs filled in before D/C Order can be placed): Home, Self Care Charges/Coding Visit Charges Inpatient E&M: 35596 Disch Hosp >30min
--- NOTE | 2024-06-08 14:58 | CASEMGMT ---
Patient has order for discharge. MARIA FERNANDA CM in to discuss needs at discharge, daughter at bedside. Patient still agreeable to CCN at discharge, patient denied further needs. Daughter voiced concern for help bathing. MARIA FERNANDA APPLE provided information for [facility] for additional resources, daughter accessed [facility] information on phone. Daughter had no further questions or concerns. Patient had no further questions or concerns.
--- NOTE | 2024-06-08 15:20 | PHA.DC.MC.R ---
Pharmacy [facility] has performed discharge medication reconciliation and counseling for this patient. 1. POTASSIUM CHLORIDE 10MEQ PO DAILY 2. LASIX CHANGED TO DAILY The patient's discharge medication list was reviewed for discrepancies and discrepancies were resolved. The patient was counseled on the following discharge medications and changes in medications for homegoing were reviewed. The Reason for Use, instructions for use, and potential side effects were reviewed for all new medications. The patient's questions regarding all of their medications were answered. The patient was able to verbally demonstrate an understanding of their discharge medications. Medications at Discharge Home Medications alprazolam 0.5 mg tablet 0.5 mg PO DAILY tremor 10/12/22 ascorbic acid (vitamin C) 1,000 mg tablet,extended release (Vitamin C ER) 1,000 mg PO Q12H 10/12/22 cholecalciferol (vitamin D3) 25 mcg (1,000 unit) tablet (Vitamin D3) 25 mcg PO DAILY 10/12/22 metoprolol tartrate 25 mg tablet 25 mg PO BID 10/12/22 mirtazapine 30 mg tablet 30 mg PO QHS 10/12/22 multivitamin 1 tab PO DAILY 10/12/22 rosuvastatin 5 mg tablet 5 mg PO DAILY 10/12/22 vitamin B12 1,000 mcg-folic acid 400 mcg sublingual tablet 1 tab sublingual DAILY 10/12/22 valsartan 320 mg tablet 320 mg PO DAILY 06/06/24 furosemide 40 mg tablet (Lasix) 40 mg PO DAILY fluid #30 tabs 06/08/24 potassium chloride 10 mEq capsule,extended release 10 meq PO DAILY #30 caps 06/08/24
--- NOTE | 2024-06-11 08:38 | CCN.REFER ---
PATIENT RESIDES IN [place] WHICH OUT OF RANGE FOR [facility].
== END 2024-06-08 16:01 | disposition home or self-care (01) | DRG 291 ==
LOC: ED 20:12 → PCU 20:27
PROVIDERS: Physician Assistant; Admitting Provider Internal Medicine; Emergency Provider Emergency Medicine; PCP Nurse Practitioner Family
DX: I13.0 Hypertensive heart and chronic kidney disease with heart failure and stage 1 through stage 4 chronic kidney disease, or unspecified chronic kidney disease (principal); I50.23 Acute on chronic systolic (congestive) heart failure; D69.3 Immune thrombocytopenic purpura; I24.89 Other forms of acute ischemic heart disease; D63.1 Anemia in chronic kidney disease; N18.30 Chronic kidney disease, stage 3 unspecified; F32.A Depression, unspecified; Z95.3 Presence of xenogenic heart valve; I35.0 Nonrheumatic aortic (valve) stenosis; E78.00 Pure hypercholesterolemia, unspecified; F41.9 Anxiety disorder, unspecified; Z79.899 Other long term (current) drug therapy; Z87.891 Personal history of nicotine dependence; Z23 Encounter for immunization
CPT/HCPCS: 36415; 71046; 80048; 80076; 83735; 83880; 84100; 84443; 84484; 85025; 85610; 87631; 90662; 93005; 93306; 97802; 99252; 99285; A4216; G0463; J1940

== ENCOUNTER 2024-06-22 06:29 | Inpatient (IN) | payer MEDICARE, OTHER, SELFPAY ==
[2024-06-22] VITALS (10 sets, daily range): BP systolic 132–173; BP diastolic 39–66; PULSE 43–76; RESP 16–20; TEMP 36.2–36.9; O2SAT 91–98; BMI 36.1; BMI 34.9
--- NOTE | 2024-06-22 06:35 | EKG12_ITS ---
Test Reason : SOB Blood Pressure : */* mmHG Vent. Rate : 68 BPM Atrial Rate : 68 BPM P-R Int : 184 ms QRS Dur : 150 ms QT Int : 458 ms P-R-T Axes : 11 -79 67 degrees QTcB Int : 487 ms Sinus rhythm with sinus arrhythmia with occasional Premature ventricular complexes Right bundle branch block Left anterior fascicular block Bifascicular block Abnormal ECG Confirmed by JACQUELINE MANZANO, MARTHA ([id number]), editor index RONAL CARPIO ([id number]) on 06/23/2024 7:55:45 AM Referred By: Confirmed By: MARTHA PHILLIPS MD
--- NOTE | 2024-06-22 06:37 | ED.VIS.DYS ---
HPI History of Present Illness Chief Complaint: Shortness of Breath Informant: patient and EMS Narrative Narrative: Patient presents with worsening dyspnea over the past day, gradually. Mostly with exertion, he has to walk very little before he is out of breath. Denies orthopnea but he has not tried lying down, he tried to sleep in a recliner. Chronic leg edema is worse than usual in the last couple days. He was here 2 weeks ago with similar symptoms, he was put on a higher dose of Lasix, potassium replacement, he has been compliant with that prescription in the past couple weeks although he was not prior. He noticed that in the past couple days he is not urinating as much as he used to after taking the Lasix. When he does feel the need to urinate he has no problems going. He denies any chest discomfort, lightheadedness, syncope. No GI symptoms. [facility] Medical History Allergic rhinitis Valvular heart disease Chronic anemia Chronic idiopathic thrombocytopenia Former tobacco use CKD (chronic kidney disease), stage III Anxiety and depression Hypertension High cholesterol Lumbar radiculopathy Home Medications ?Medication ?Instructions ?Recorded ?Last Taken ?Type alprazolam 0.5 mg tablet 0.5 mg PO DAILY tremor 10/12/22 10/05/22 History ascorbic acid (vitamin C) 1,000 mg 1,000 mg PO Q12H 10/12/22 10/11/22 History tablet,extended release (Vitamin C ER) cholecalciferol (vitamin D3) 25 25 mcg PO DAILY 10/12/22 10/11/22 History mcg (1,000 unit) tablet (Vitamin D3) metoprolol tartrate 25 mg tablet 25 mg PO BID 10/12/22 10/11/22 History mirtazapine 30 mg tablet 30 mg PO QHS 10/12/22 Unknown History multivitamin 1 tab PO DAILY 10/12/22 10/11/22 History vitamin B12 1,000 mcg-folic acid 1 tab sublingual DAILY 10/12/22 10/11/22 History 400 mcg sublingual tablet valsartan 320 mg tablet 320 mg PO DAILY 06/06/24 Unknown History furosemide 40 mg tablet (Lasix) 40 mg PO DAILY fluid #30 tabs 06/08/24 10/05/22 Rx potassium chloride 10 mEq 10 meq PO DAILY #30 caps 06/08/24 Unknown Rx capsule,extended release rosuvastatin 10 mg tablet 10 mg PO QHS 06/22/24 Unknown History Allergy/AdvReac Type Severity Reaction Status Date / Time morphine Allergy Shortness Verified 06/22/24 06:30 of breath Family History Mother Anemia Glaucoma Father Prostate cancer Surgical History S/P total knee replacement Heart valve replaced Social History household members: none Smoking Status: Former smoker how long ago did patient quit smoking: Smoked 1 ppd teen until quit 1967 after of his daughter. alcohol intake: never substance use type: does not use ROS ROS ED Constitutional Constitutional ED: Denies chills or fever(s) Eyes Eyes: Denies change in vision or diplopia ENT ENT ED: Denies rhinorrhea or sore throat Cardiovascular Cardiovascular: Reports leg edema; Denies chest pain or palpitations Respiratory/Chest Respiratory/Chest: Reports dyspnea on exertion; Denies cough Gastrointestinal Gastrointestinal: Denies abdominal pain, diarrhea, nausea or vomiting Genitourinary Genitourinary ED: Reports decreased urination; Denies dysuria or hematuria Musculoskeletal Musculoskeletal: Denies back pain or neck pain Integumentary Denies abscess or rash Neurologic Neurologic: Denies headache(s), paresthesias or weakness EXAM Physical Exam Const Vital Signs: 06/22/24 06:29 06/22/24 06:29 06/22/24 06:37 Temperature 97.6 F L Temperature Source Oral Pulse Rate 43 L Respiratory Rate 19 H Respiratory Effort Normal Non-Labored Respiratory Depth Normal Respiratory Pattern Normal Blood Pressure 169/39 H Blood Pressure Mean 82 Pulse Ox 91 92 Oxygen Delivery Method Room Air Room Air Room Air Positive well nourished and well developed General Appearance ED: well developed and NAD HEENT Reports moist mucous membranes normocephalic and atraumatic Eyes PERRL and EOMs intact bilaterally Neck full ROM and supple Resp normal respiratory effort and clear to auscultation bilaterally Cardio Rhythm: abnormal rhythm irregularly irregular and ectopic beats Heart Sounds: murmur systolic II/ crescendo-decrescendo GI non-tender and non-distended Auscultation: normoactive bowel sounds Palpation: soft Back/Spine no CVA tenderness General Back: other FROM Extremity normal to inspection General Extremety ED: Yes edema; Negative for pulses abnormal or tenderness General Extremity: edema bilateral lower extremity Details: moderate (3+, symmetric); Negative for pulses abnormal Neuro oriented x3, CN's II-XII intact bilaterally and no sensory deficits noted Sensorium / Orientation: awake and alert Motor Exam: strength 5/5 throughout Psych mental status grossly normal Skin no rashes or lesions noted and no wounds MDM MDM MDM Narrative Medical decision making narrative: 2 weeks ago patient was admitted for 2 nights to the hospital had an echocardiogram and ongoing diuresis for pulmonary edema and small bilateral pleural effusions. Repeat chest x-ray this morning on my interpretation shows similar small pleural effusions, no overt CHF or pneumonia. Radiology in agreement. His labs are noted. He has MICHELLE now compared with his prior labs on top of his chronic kidney disease, his troponin is at the high end of normal at 71 and his EKG shows a sinus rhythm with frequent ectopy but no acute injury pattern or A-fib at this time. Given this, I had nursing ambulate him. He ambulated about 10 feet, was dyspneic and down to 83% on room air. He gradually recovered back in bed. He has no home oxygen. Given the MICHELLE and respiratory insufficiency with hypoxemia I think he will benefit from admission again. Discussed with hospitalist who requests dose of IV Lasix which is ordered and given. History & Record Review Additional record(s) reviewed:: Prior inpatient record (Echocardiogram showing good EF 60%) and Prior ED visit Lab Data Attestation: I reviewed the patient's lab results. Labs: Laboratory Results - last 24 hr 06/22/24 06:37 WBC 11.3 H RBC 4.53 L Hgb 14.2 Hct 43.6 MCV 96.2 H MCH 31.3 MCHC 32.6 RDW Std Deviation 46.5 H RDW Coeff of Sloane 13.2 Plt Count 100 L MPV 11.2 Immature Gran % (Auto) 0.600 Neut % (Auto) 73.7 H Lymph % (Auto) 13.8 L [place] % (Auto) 10.2 H Eos % (Auto) 1.1 Baso % (Auto) 0.6 Absolute Neuts (auto) 8.3 H Absolute Lymphs (auto) 1.56 Nucleated RBC % 0 Sodium 144 Potassium 3.5 Chloride 110 H Carbon Dioxide 28.0 Anion Gap 6 BUN 51 H Creatinine 1.85 H Estim Creat Clear Calc 36.10 Est GFR (MDRD) Af Amer 45 L Est GFR (MDRD) Non-Af 37 L BUN/Creatinine Ratio 27.6 H Glucose 113 H Calcium 9.0 Troponin I High Sens 71 Radiography Diagnostic Testing: Clinical Impression(s) from Imaging Studies Chest X-Ray 06/22/24 07:10 IMPRESSION: Small pleural effusions. No infiltrates. Electronically Signed: Unique Ryder MD at 7:33 EST Reading Location ID and State: [facility] / ID Tel , Service support , Rhythm Strip Rhythm Strip: Sinus Rhythm Rate: 55 Ectopy: PVC(s) (frequent) EKG Initial EKG: Attestation: I personally reviewed and interpreted this EKG as follows: Interpretation: Sinus Rhythm, No Acute Injury Pattern, RBBB and LAFB Prior EKG tracings: available for review Prior: Unchanged Management Discussion w/another healthcare provider: Hospitalist Discharge Plan Triage Chief Complaint: Shortness of Breath ED Provider: Chris Cheney Dx/Rx/DC Orders Clinical Impression: MICHELLE (acute kidney injury), Hypoxia, Pleural effusion, Acute respiratory insufficiency, CHF (congestive heart failure) Prescriptions: No Action multivitamin Tablet 1 tab PO DAILY Vitamin C 1,000 mg Tablet Extended Release 1,000 mg PO Q12H alprazolam 0.5 mg tablet 0.5 mg PO DAILY mirtazapine 30 mg Tablet 30 mg PO QHS metoprolol tartrate 25 mg tablet 25 mg PO BID cholecalciferol (vitamin D3) [Vitamin D3] 25 mcg (1,000 unit) Tablet 25 mcg PO DAILY vitamin [id number] acid 1,000-400 mcg Tablet, Sublingual 1 tab SUBLINGUAL DAILY valsartan 320 mg tablet 320 mg PO DAILY potassium chloride 10 mEq capsule, extended release 10 meq PO DAILY Qty: 30 0RF furosemide [Lasix] 40 mg Tablet 40 mg PO DAILY Qty: 30 0RF rosuvastatin 10 mg tablet 10 mg PO QHS Primary Care Provider: Khai Ibarra NP Referrals: Khai Ibarra FUNERAL HOME GENERAL MANAGER, FUNERAL HOME GENERAL MANAGER-C [Primary Care Provider] - Print Language: Kazakh Disposition Disposition: Acute Care Hospital [facility]
[2024-06-22 06:44] LABS: Absolute Lymphocyte Count 1.56 X10^3/uL (0.83-4.51); Absolute Neutrophil Count 8.3 X10^3/uL (2.0-7.7); Basophil# 0.07 X10^3/uL; Basophil% 0.6 % (0-1); Eosinophil# 0.13 X10^3/uL; Eosinophils% 1.1 % (0-5); Hematocrit 43.6 % (40-54); Hemoglobin 14.2 g/dL (13.0-16.5); Lymphocyte # 1.56 X10^3/ul (0.83-4.51); Lymphocyte % 13.8 % (19-41); Mean Corp Hgb Conc 32.6 g/dL (32-36); Mean Corpuscular Hgb 31.3 pg (27.0-32.0); Mean Corpuscular Volume 96.2 fL (80-94); Mean Platelet Vol. 11.2 fl (6.2-12.0); Monocyte# 1.15 X10^3/uL; Monocyte% 10.2 % (0-10); NRBC Flagged by Analyzer 0 % (0-5); Neutrophil # 8.34 X10^3/uL (2.7-7.7); Neutrophil % 73.7 % (47-70); Platelet Count 100 K/mm3 (150-450); RBC Distribution Width CV 13.2 % (11.6-14.6); RBC Distribution Width SD 46.5 fl (35.1-43.9); Red Blood Count 4.53 M/mm3 (4.6-6.2); White Blood Count 11.3 K/mm3 (4.4-11.0)
[2024-06-22 07:07] LABS: Anion Gap 6 (5-15); BUN 51 mg/dL (7-18); BUN/Creat Ratio 27.6 RATIO (10-20); Chloride 110 mmol/L (98-107); Creatinine, Serum 1.85 mg/dL (0.70-1.30); EST Glomerular Filtration Rate 37 mL/min (>60); Est Glom Filt Rate - Afr Amer 45 mL/min (>60); Glucose 113 mg/dL (74-106); Potassium 3.5 mmol/L (3.5-5.1); Sodium Level 144 mmol/L (136-145); Troponin-I HS 71 pg/mL (3.0-78.0)
--- NOTE | 2024-06-22 07:10 | RAD_ITS ---
INDICATION: sob EXAMINATION/TECHNIQUE: X-RAY - XR Chest 1 View COMPARISON: Prior study dated: 06/06/2024 FINDINGS: LINES/DEVICES: None. LUNGS: Small bilateral pleural effusions not significantly changed. No consolidation. No pneumothorax. MEDIASTINUM: Unremarkable. CARDIAC SILHOUETTE: Not enlarged. Sternal wires. BONES AND SOFT TISSUES: No acute abnormalities. RAD/Chest 1 View (Portable) IMPRESSION: Small pleural effusions. No infiltrates. Electronically Signed: Unique Ryder MD at 7:33 EST ,
[2024-06-22] MEDS: Furosemide 40 MG/4 ML Vial IV ×2 (08:00→16:50)
[2024-06-22 08:06] LABS: BNP,B-Type NATRIURETIC PEPTIDE 881.4 pg/mL (0-100)
--- NOTE | 2024-06-22 08:39 | HP.PCM.HOS_ITS ---
HPI - General General Date of Admission: 06/22/24 Date of Service: 06/22/24 Chief Complaint: Shortness of breath on exertion progressive worsening for 1 to 2 weeks HPI Narrative ANA ROSA FABIAN, is a 83 M came to ED with increased shortness of breath for past 1 to 2 weeks after recent admission for heart failure. Patient also had increased leg swelling with a difficulty in ambulation and does not walk much except from home to car. He gained 5 pounds since last discharge in 2 weeks. Patient has mild chest congestion but denies pressure or pain. He is not on home oxygen or NIPPV. Patient also noted decrease in the urine output in last 1 week. He is on furosemide 40 mg daily and valsartan found to be MICHELLE on CKD in ED In ED, his BP was elevated with mild tachypnea but no hypoxia on room air on ambulation in ED, his pulse ox dropped to 83% on room air and was dyspneic on walking 10 feet. Patient was given Lasix 40 mg IV in ED and further admitted. [facility] Medical History Allergic rhinitis Valvular heart disease Chronic anemia Chronic idiopathic thrombocytopenia Former tobacco use CKD (chronic kidney disease), stage III Anxiety and depression Hypertension High cholesterol Lumbar radiculopathy Home Medications ?Medication ?Instructions ?Recorded ?Last Taken ?Type alprazolam 0.5 mg tablet 0.5 mg PO DAILY tremor 10/12/22 10/05/22 History ascorbic acid (vitamin C) 1,000 mg 1,000 mg PO Q12H 10/12/22 10/11/22 History tablet,extended release (Vitamin C ER) cholecalciferol (vitamin D3) 25 25 mcg PO DAILY 10/12/22 10/11/22 History mcg (1,000 unit) tablet (Vitamin D3) metoprolol tartrate 25 mg tablet 25 mg PO BID 10/12/22 10/11/22 History mirtazapine 30 mg tablet 30 mg PO QHS 10/12/22 Unknown History multivitamin 1 tab PO DAILY 10/12/22 10/11/22 History vitamin B12 1,000 mcg-folic acid 1 tab sublingual DAILY 10/12/22 10/11/22 History 400 mcg sublingual tablet valsartan 320 mg tablet 320 mg PO DAILY 06/06/24 Unknown History furosemide 40 mg tablet (Lasix) 40 mg PO DAILY fluid #30 tabs 06/08/24 10/05/22 Rx potassium chloride 10 mEq 10 meq PO DAILY #30 caps 06/08/24 Unknown Rx capsule,extended release rosuvastatin 10 mg tablet 10 mg PO QHS 06/22/24 Unknown History Allergy/AdvReac Type Severity Reaction Status Date / Time morphine Allergy Shortness Verified 06/22/24 06:30 of breath Family History Mother Anemia Glaucoma Father Prostate cancer Surgical History S/P total knee replacement Heart valve replaced Social History household members: none Smoking Status: Former smoker how long ago did patient quit smoking: Smoked 1 ppd teen until quit 1967 after of his daughter. alcohol intake: never substance use type: does not use ROS ROS Narrative Constitutional: Reports fatigue and weakness. No fever. HEENT: Reports systems reviewed and no addt'l complaints, except as documented Respiratory/Chest: Dyspnea and hypoxia on mild exertion. CVS: As described in HPI Gastrointestinal: Denies coffee ground emesis, hematemesis or vomiting Genitourinary: Denies burning urination or new urinary tract symptoms Musculoskeletal: Leg swelling. Difficulty ambulation. Denies acute joint pain or limited range of motion. No acute injury Neurologic: Denies seizure-like symptoms. skin: No ulcer. No rash Endocrinology: Reports systems reviewed and no addt'l complaints, except as documented Hematologic/Lymphatic: Reports systems reviewed and no addt'l complaints, except as documented Rest 14 ROS are negative except as mentioned in HPI Vital Signs Vital Signs Vital Signs: 06/22/24 06:29 06/22/24 06:29 06/22/24 06:37 Temperature 97.6 F L Temperature Source Oral Pulse Rate 43 L Respiratory Rate 19 H Respiratory Effort Normal Non-Labored Respiratory Depth Normal Respiratory Pattern Normal Blood Pressure 169/39 H Blood Pressure Mean 82 Pulse Ox 91 92 Oxygen Delivery Method Room Air Room Air Room Air 06/22/24 08:27 Temperature 98.4 F Temperature Source Pulse Rate 76 Respiratory Rate 20 H Respiratory Effort Respiratory Depth Respiratory Pattern Blood Pressure 132/56 H Blood Pressure Mean 81 Pulse Ox 91 Oxygen Delivery Method Weight Weight: 230 lb 9.656 oz Body Mass Index (BMI) 36.1 Physical Exam Narrative Seen and examined General: Alert, Oriented x3, Cooperative HEENT: Atraumatic, PERRLA, EOMI, Normocephalic Oral: No Gingival or Mucosal Lesions/ Ulcerations Neck: Supple, No JVD, Negative Carotid Bruits Chest wall/Lungs: Air entry diminished in bilateral lung bases. Occasional crepitations. Cardiovascular: Irregular Rhythm, Normal S1, Normal S2, systolic murmur. Abdomen: Bowel Sounds Present, Soft, Non Tender, Non-Distended : No dysuria. No renal angle tenderness. No suprapubic tenderness. Extremities: Bilateral lower scrotal swelling leg swelling above knee level, 3+ pitting edema, Capillary Refill Less than 3 Seconds Skin: No rashes, No breakdown Musculoskeletal: No Tenderness to Palpation of Joints or Extremities. Degenerative arthritis. ROM restricted. Neurological: Cranial nerves II-XII grossly intact, DTR 2+/4. No acute focal neurological deficit. Psych/Mental Status: Normal Affect, Appropriate. Results Lab / Micro Data 06/22/24 06:37 06/22/24 06:37 Labs: Laboratory Results - last 24 hr 06/22/24 06:37: WBC 11.3 H, RBC 4.53 L, Hgb 14.2, Hct 43.6, MCV 96.2 H, MCH 31.3, MCHC 32.6, RDW Std Deviation 46.5 H, RDW Coeff of [place] 13.2, Plt Count 100 L, MPV 11.2, Immature Gran % (Auto) 0.600, Neut % (Auto) 73.7 H, Lymph % (Auto) 13.8 L, [place] % (Auto) 10.2 H, Eos % (Auto) 1.1, Baso % (Auto) 0.6, Absolute Neuts (auto) 8.3 H, Absolute Lymphs (auto) 1.56, Nucleated RBC % 0, Sodium 144, Potassium 3.5, Chloride 110 H, Carbon Dioxide 28.0, Anion Gap 6, BUN 51 H, C reatinine 1.85 H, Estim Creat Clear Calc 36.10, Est GFR (MDRD) Af Amer 45 L, Est GFR (MDRD) Non-Af 37 L, BUN/Creatinine Ratio 27.6 H, Glucose 113 H, Calcium 9.0, Troponin I High Sens 71, B-Natriuretic Peptide 881.4 H Rhythm Strip Rhythm Strip: Sinus Rhythm Rate: 55 Ectopy: PVC(s) (frequent) Imaging Radiology Impression Chest X-Ray 06/22/24 07:10 IMPRESSION: Small pleural effusions. No infiltrates. Electronically Signed: Unique Ryder MD at 7:33 EST , Assessment & Plan Assessment/Plan (1) MICHELLE (acute kidney injury): (2) Acute on chronic heart failure with preserved ejection fraction (HFpEF): PLAN: Plan This is a 83-year-old gentleman came to ED for dyspnea on exertion, leg swelling and MICHELLE. Patient is stated he had 3 times aortic valves replaced 1. Acute on chronic HFpEF due to valvular heart disease, aortic stenosis status post bioprosthetic aortic valve, mild TR and mild MR: Patient is being admitted in PCU. Recent echo on 06/08/2024 shows mean aortic valve gradient 21 mmHg suggestive of mild AAS, mild AR, mild TR, PASP 34 mmHg and mild eccentric MR. Triple influenza COVID and RSV PCR is ordered. Continue metoprolol. Patient started on Lasix 40 mg IV twice daily. Heart failure core measures including intake and output, fluid restriction less than 1500 mL, daily weight monitoring, kidney and electrolytes monitoring. 2. MICHELLE on CKD stage III: Patient baseline creatinine runs around 1.3 with estimated creatinine was 15/h. MICHELLE probably may be from congestion or decreased effective renal plasma flow. Monitor kidney function. Urine electrolytes and osmolarity ordered. Nephrology consulted. 3. Hypertension: Blood pressure was elevated but after Lasix it is in systolic 130s. Monitor BP. Hold valsartan. 4. Dyslipidemia on rosuvastatin 5. Anxiety and depression: Patient is probably mirtazapine 30 mg nightly, needs confirmation from the pharmacy VTE prophylaxis: enoxaparin. Addressed as per the creatinine clearance Living will/advanced directive/end of life care: Patient does have living will or advanced directive. He does not have daycare power of security assurance specialist for health but his daughter present in the ED. After discussion of benefits/risks procedures involved with full code, DNR CC arrest and DNR CC, the patient opted for DNR CC arrest and does not want intubation CPR, ventilator or shocking .. Patient doesn't want artificial life support including intubation, tube feed, ventilator and/chest compression, central venous catheter, vasopressor and DC shock if needed Total time spent in [id number] encounter in discussion of advanced directive 17 minutes. 2D echo on 06/06/2020 Interpretation Summary Normal LV size. Left ventricular systolic function is normal. The left ventricular ejection fraction is 60 %. Mild concentric left ventricular hypertrophy. Bioprosthetic aortic valve. Mean aortic valve gradient 21 mmHg. Compared to the previous it does not appear that the gradients are significantly changed. Charges/Coding Visit Charges Inpatient E&M: 61677 Init Hosp L3 Procedures Hospitalists Procedures: 34468 Advncd Care Plan 30 Min
[2024-06-22] MEDS: Enoxaparin 40 MG/0.4 ML Syringe SC (09:40)
[2024-06-22] MEDS: Spironolactone 25 MG Tablet PO (09:40)
[2024-06-22 09:42] LABS: Magnesium 2.6 mg/dL (1.6-2.6); Uric Acid 10.8 mg/dL (3.5-7.2)
[2024-06-22 09:57] LABS: Osmolality, Serum 316 mOsm/KG (280-301)
[2024-06-22 10:01] LABS: Troponin-I HS 78 pg/mL (3.0-78.0)
[2024-06-22 12:43] LABS: Troponin-I HS 68 pg/mL (3.0-78.0)
[2024-06-22 13:29] LABS: Bacteria 0 SEEN /hpf (None Seen); Mucous, Urine 0 SEEN /hpf (<or=2+); Squamous Epithelial Cells - UA 0 SEEN /hpf (0-5); White Blood Cells 0 SEEN /hpf (0-5)
[2024-06-22 13:32] LABS: Color, Urine Yellow (Yellow); Glucose, Dipstick Normal (Normal); Ketone-Dipstick Negative (Negative); Leukocyte Esterase-Dipstick Negative /ul (Negative); Nitrite-Dipstick Negative (Negative); Occult Blood-Urine 25 /ul (Negative); Protein-Dipstick Negative (Negative); Urine Bilirubin Dipstick Negative (Negative); Urine Clarity Clear (Clear); Urine Urobilinogen Normal (Normal)
[2024-06-22 13:38] LABS: Protein, Urine (Random) 8.8 mg/dL (<11.9); Protein:Creat Ratio 143 mg/g CRE (0-200); Urine Chloride 90 mmol/L (Not Establ.); Urine Sodium 71 mmol/L (Not Establ.)
[2024-06-22 13:39] LABS: Red Blood Cells-Urine 0-5 SEEN /hpf (0-5)
[2024-06-22 13:47] LABS: Osmolality, Urine 389 mOsm/KG
--- NOTE | 2024-06-22 15:58 | CHAPLAIN ---
Type of Pastoral Visit _x__ Initial Visit ___ Follow-up Visit ___ On-call Visit ___ General Patient Visit ___ Spiritual Assessment ___ Family Conference ___ Bereavement ___ Rapid Response ___ Code Blue ___ Other (describe below) Pastoral Care Referral From _x__ Patient ___ Family ___ Nurse ___ Physician ___ Storeroom Supervisor ___ Events Assistant ___ Other (describe below) Sacrament/Intervention _x__ Active listening ___ Anointing ___ Zoroastrian ___ Bereavement ___ Communion ___ Saundra exploration ___ ___ Life review _x__ Prayer ___ Reconciliation ___ Sacrament of Sick _x__ Supportive presence ___ Wedding ___ Other (describe below) Pastoral Comments patient is awake and alert; pt has two family members in the room; pt explains his situation and the difficulty in breathing which was concerning and frightening for him; pt is feeling better but would like prayer support; pt appreciated the visit and expressed gratitude
[2024-06-22] MEDS: Ensure Plus High Protein 120 ML LIQUID PO ×2 (16:53→21:50)
[2024-06-22] MEDS: Menthol/Lanolin/Calamine/Znox 113 GM Tube 1 APPLIC TOPICAL (21:50)
[2024-06-22] MEDS: Ascorbic Acid 500 MG Tablet 1000 MG PO (21:50)
[2024-06-22] MEDS: Atorvastatin Calcium 20 MG Tablet PO (21:50)
[2024-06-22] MEDS: Nystatin Powder 15gm Bottle 1 APPLIC TOPICAL (21:51)
[2024-06-22] MEDS: Metoprolol Tartrate 25 MG Tablet PO (21:51)
[2024-06-23] VITALS (8 sets, daily range): BP systolic 129–151; BP diastolic 36–50; PULSE 64–75; RESP 16–18; TEMP 36.2–36.6; O2SAT 94–97; BMI 35.0
[2024-06-23] MEDS: Acetaminophen 325 MG Tablet 650 MG PO (05:40)
[2024-06-23 06:40] LABS: Absolute Lymphocyte Count 1.57 X10^3/uL (0.83-4.51); Absolute Neutrophil Count 6.1 X10^3/uL (2.0-7.7); Basophil# 0.05 X10^3/uL; Basophil% 0.6 % (0-1); Eosinophils% 2.2 % (0-5); Hematocrit 39.6 % (40-54); Hemoglobin 12.8 g/dL (13.0-16.5); Lymphocyte # 1.57 X10^3/ul (0.83-4.51); Lymphocyte % 17.5 % (19-41); Mean Corp Hgb Conc 32.3 g/dL (32-36); Mean Corpuscular Hgb 30.9 pg (27.0-32.0); Mean Corpuscular Volume 95.7 fL (80-94); Mean Platelet Vol. 11.3 fl (6.2-12.0); Monocyte# 1.04 X10^3/uL; Monocyte% 11.6 % (0-10); NRBC Flagged by Analyzer 0 % (0-5); Neutrophil # 6.06 X10^3/uL (2.7-7.7); Neutrophil % 67.8 % (47-70); POSITIVE COUNT YES; Platelet Count 98 K/mm3 (150-450); RBC Distribution Width CV 13.2 % (11.6-14.6); RBC Distribution Width SD 45.9 fl (35.1-43.9); Red Blood Count 4.14 M/mm3 (4.6-6.2)
[2024-06-23 07:12] LABS: Anion Gap 5 (5-15); BUN 50 mg/dL (7-18); BUN/Creat Ratio 29.6 RATIO (10-20); Calcium,Total 8.9 mg/dL (8.5-10.1); Chloride 109 mmol/L (98-107); Creatinine, Serum 1.69 mg/dL (0.70-1.30); EST Glomerular Filtration Rate 42 mL/min (>60); Est Glom Filt Rate - Afr Amer 50 mL/min (>60); Estimated Creatinine Clearance 38.92 ml/min; Glucose 97 mg/dL (74-106); Potassium 3.4 mmol/L (3.5-5.1); Sodium Level 143 mmol/L (136-145)
[2024-06-23] MEDS: Furosemide 40 MG/4 ML Vial IV ×2 (08:21→16:34)
[2024-06-23] MEDS: Ensure Plus High Protein 120 ML LIQUID PO ×4 (08:21→21:08)
[2024-06-23] MEDS: Enoxaparin 40 MG/0.4 ML Syringe SC (08:21)
[2024-06-23] MEDS: Metoprolol Tartrate 25 MG Tablet PO ×2 (08:21→21:09)
[2024-06-23] MEDS: Nystatin Powder 15gm Bottle 1 APPLIC TOPICAL ×2 (08:22→21:09)
[2024-06-23] MEDS: Menthol/Lanolin/Calamine/Znox 113 GM Tube 1 APPLIC TOPICAL ×2 (08:22→21:09)
[2024-06-23] MEDS: Multivitamins,Therapeutic Tablet 1 TABLET PO (08:22)
[2024-06-23] MEDS: Ascorbic Acid 500 MG Tablet 1000 MG PO ×2 (08:22→21:08)
--- NOTE | 2024-06-23 08:41 | PN.HOSP_ITS ---
Reason for Visit Reason for Visit: Diagnoses Acute on chronic diastolic (congestive) heart failure (06/22/24) Acute kidney failure, unspecified (06/22/24) Objective Data Objective Data Vital Signs: Vital Signs Temp Pulse Resp BP Pulse Ox O2 Del Method 97.1 F L 67 18 149/36 H 96 Room Air 06/23/24 08:18 06/23/24 08:21 06/23/24 08:18 06/23/24 08:18 06/23/24 08:18 06/23/24 08:18 Oxygen Delivery Method Room Air Weight: 223 lb 12.307 oz Body Mass Index (BMI) 35.0 Intake & Output: Intake and Output for Last 24 Hours 06/21/24 06/22/24 06/23/24 23:59 23:59 23:59 Intake Total 400 / 400 Output Total 200 / 1100 1250 / 1250 Balance 200 / -700 -1250 / -1250 Lab / Micro Data 06/23/24 06:17 06/23/24 06:17 Labs: Laboratory Results - last 24 hr 06/22/24 06:37: Uric Acid 10.8 H, Phosphorus 3.0, Magnesium 2.6 06/22/24 09:35: Serum Osmolality 316 H, Troponin I High Sens 78 06/22/24 11:40: Urine Color Yellow, Urine Clarity Clear, Urine pH 6.0, Ur Specific [place] 1.010, Urine Protein Negative, Urine Glucose (UA) Normal, Urine Ketones Negative, Urine Occult Blood 25 H, Urine Nitrite Negative, Urine Bilirubin Negative, Urine Urobilinogen Normal, Ur Leukocyte Esterase Negative, Urine RBC 0-5 SEEN, Urine WBC 0 SEEN, Ur Squamous Epith Cells 0 SEEN, Urine Bacteria 0 SEEN, Urine Mucus 0 SEEN, Urine Osmolality 389, U Random Total Protein 8.8, Ur Random Sodium 71, Urine Creatinine 61.60, Protein/Creatinin Ratio 143, Urine Potassium 22.0, Urine Chloride 90 06/22/24 12:08: Troponin I High Sens 68 06/23/24 06:17: WBC 9.0, RBC 4.14 L, Hgb 12.8 L, Hct 39.6 L, MCV 95.7 H, MCH 30.9, MCHC 32.3, RDW Std Deviation 45.9 H, RDW Coeff of [place]lo[place] 13.2, Plt Count 98 L , MPV 11.3, Immature Gran % (Auto) 0.300, Neut % (Auto) 67.8, Lymph % (Auto) 17.5 L, [place] % (Auto) 11.6 H, Eos % (Auto) 2.2, Baso % (Auto) 0.6, Absolute Neuts (auto) 6.1, Absolute Lymphs (auto) 1.57, Nucleated RBC % 0, Sodium 143, P otassium 3.4 L, Chloride 109 H, Carbon Dioxide 29.0, Anion Gap 5, BUN 50 H, C reatinine 1.69 H, Estim Creat Clear Calc 38.92, Est GFR (MDRD) Af Amer 50 L, Est GFR (MDRD) Non-Af 42 L, BUN/Creatinine Ratio 29.6 H, Glucose 97, Calcium 8.9, T SH 4.200 H Rhythm Strip Rhythm Strip: Sinus Rhythm Rate: 55 Ectopy: PVC(s) (frequent) Physical Exam Narrative Shortness of breath is better. Leg swelling also better. Patient getting diuresed and urine output increased. Discussed with the weathercaster Seen and examined General: Alert, Oriented x3, Cooperative HEENT: Atraumatic, PERRLA, EOMI, Normocephalic Oral: No Gingival or Mucosal Lesions/ Ulcerations Neck: Supple, No JVD, Negative Carotid Bruits Chest wall/Lungs: Air entry equal in bilateral lung bases. No crepitations. Cardiovascular: Irregular Rhythm, Normal S1, Normal S2, systolic murmur with radiation to carotids Abdomen: Bowel Sounds Present, Soft, Non Tender, Non-Distended : No dysuria. No renal angle tenderness. No suprapubic tenderness. Extremities: Bilateral lower leg swelling improved, 2+ below knee level, Capillary Refill Less than 3 Seconds Skin: No rashes, No breakdown Musculoskeletal: No Tenderness to Palpation of Joints or Extremities. Degenerative arthritis. ROM restricted. Neurological: Cranial nerves II-XII grossly intact, DTR 2+/4. No acute focal neurological deficit. Psych/Mental Status: Normal Affect, Appropriate. Assessment & Plan Assessment/Plan (1) MICHELLE (acute kidney injury): (2) Acute on chronic heart failure with preserved ejection fraction (HFpEF): PLAN: Plan This is a 83-year-old gentleman came to ED for dyspnea on exertion, leg swelling and MICHELLE. Patient is stated he had 3 times aortic valves replaced 1. Acute on chronic HFpEF due to valvular heart disease, aortic stenosis status post bioprosthetic aortic valve, mild TR and mild MR: Patient is being admitted in PCU. Recent echo on 06/08/2024 shows mean aortic valve gradient 21 mmHg suggestive of mild AAS, mild AR, mild TR, PASP 34 mmHg and mild eccentric MR. Triple influenza COVID and RSV PCR is ordered. Continue metoprolol. 06/23: Patient lost 7 pounds. On Lasix 40 mg twice daily. Patient started on Lasix 40 mg IV twice daily. Heart failure core measures including intake and output, fluid restriction less than 1500 mL, daily weight monitoring, kidney and electrolytes monitoring. 2. MICHELLE on CKD stage III: Patient baseline creatinine runs around 1.3 with estimated creatinine was 15/h. MICHELLE probably may be from congestion or decreased effective renal plasma flow. Monitor kidney function. Urine electrolytes and osmolarity ordered. Nephrology consulted. 06/23 patient was evaluated by weathercaster. Kidney ultrasound was done and reported no hydronephrosis to suggest obstruction. 2 cm exophytic solid and cystic mass of midsection of left kidney. Nephrology to further evaluate and comment. 3. Hypertension: Blood pressure was elevated but after Lasix it is in systolic 130s. Monitor BP. Hold valsartan. 4. Dyslipidemia on rosuvastatin 5. Anxiety and depression: Patient is probably mirtazapine 30 mg nightly, needs confirmation from the pharmacy VTE prophylaxis: enoxaparin. Addressed as per the creatinine clearance Living will/advanced directive/end of life care: Patient does have living will or advanced directive. He does not have daycare power of otolaryngology rep for health but his daughter present in the ED. After discussion of benefits/risks procedures involved with full code, DNR CC arrest and DNR CC, the patient opted for DNR CC arrest and does not want intubation CPR, ventilator or shocking .. Patient doesn't want artificial life support including intubation, tube feed, ventilator and/chest compression, central venous catheter, vasopressor and DC shock if needed Total time spent in [id number] encounter in discussion of advanced directive 17 minutes. 2D echo on 06/06/2020 Interpretation Summary Normal LV size. Left ventricular systolic function is normal. The left ventricular ejection fraction is 60 %. Mild concentric left ventricular hypertrophy. Bioprosthetic aortic valve. Mean aortic valve gradient 21 mmHg. Compared to the previous it does not appear that the gradients are significantly changed. Charges/Coding Visit Charges Inpatient E&M: 91435 Subs Hosp L2
[2024-06-23] MEDS: Spironolactone 25 MG Tablet PO (09:10)
--- NOTE | 2024-06-23 09:36 | RAD_ITS ---
STUDY: X-RAY - CERVICAL SPINE REASON FOR EXAM: Male, 83 years old. NECK PAIN after whiplash injury in 12/2023 -- suspected arthritis TECHNIQUE: 3 view(s) of the cervical spine were obtained. COMPARISON: None FINDINGS: Normal anterior atlantoaxial articulation. Normal odontoid process. Normal cervical lordosis. Status post anterior cervical discectomy and fusion from C4 through C6 with anatomic alignment. Disc space narrowing and osteophyte formation at C3/C4 and C6 and C7 consistent with degenerative disc disease. Normal visualized intervertebral neuroforamina. The soft tissue structures are unremarkable. RAD/Cerv Spine 2 or 3 Views IMPRESSION: Status post anterior cervical discectomy and fusion from C4 through C6 with 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 Electronically Signed: Khai Sylvester MD at 12:09 EST ,
--- NOTE | 2024-06-23 09:43 | CON.PCM.RE_ITS ---
Assessment & Plan Assessment/Plan (1) MICHELLE (acute kidney injury): (2) CKD (chronic kidney disease), stage III: (3) Acute on chronic heart failure with preserved ejection fraction (HFpEF): PLAN: Plan This is an 83-year-old male with past medical history significant for hypertension, dyslipidemia, chronic idiopathic thrombocytopenia, anxiety/depression, aortic stenosis status post aortic valve replacement. Patient admitted for acute on chronic heart failure. Last echocardiogram 06/08/2024: EF 60%, mild concentric left ventricular hypertrophy, left ventricular systolic function normal. CXR on admission showed b/l pleural effusions. UA negative for bacteria or blood. Urine protein creatinine ratio 143 mg/g. Will obtain renal ultrasound. Possible fluctuation in serum creatinine levels from cardiorenal syndrome physiology. Baseline creatinine seems to be ranging around 1.3 to 1.6 mg/dL. Overall renal function has improved with IV diuresis. Aldactone has been added today. Recommend continue diuresing patient. He is on room air. He is nonoliguric. Recommend daily standing weights. Patient is on fluid restriction. Potassium slightly low from diuresis, Aldactone added today. We will monitor potassium trends. No acute indication for SECURITY AND COMPLIANCE ANALYST as renal function improving, patient is non-oliguric and renal function is back near his baseline. At time of hospital discharge we will arrange for hospital follow-up. Further orders forthcoming as hospitalization evolves, thank you for allowing us to participate in the care of Mr. Pablo. HPI Consult Data Date of Consult: 06/23/24 HPI Narrative HPI Narrative: ANA ROSA PABLO, is a 83 M who presented to the ER via squad yesterday with complaints of shortness of breath. Patient was admitted for acute on chronic heart failure exacerbation. Nephrology consulted in view of elevated creatinine levels. Patient has past medical history significant for hypertension, dyslipidemia, chronic idiopathic thrombocytopenia, chronic anemia, anxiety/depression, aortic stenosis status post aortic valve replacement. Patient was just admitted to [facility] mid May for similar complaints, admitted for acute on chronic heart failure and was discharged to home on June 08; discharged home on lasix 40mg daily. COVID, influenza, RSV were negative. Patient was discharged home on furosemide 40 mg p.o. daily. Previous diuretic before hospitalization was Furosemide 40 mg as needed; as per patient he had not been taking his lasix, he had run out and did not get it refilled. For this admission patient has been receiving furosemide 40 mg IV twice daily and has had 3 kg weight loss. Patient has not seen umbrella tipper machine in past. In reviewing past serum creatinine trends patient has had fluctuating serum creatinine since around 2015, with current baseline creatinine range around 1.3 to 1.6 mg/dL. During last hospitalization patient's creatinine was 1.3 mg/dL. On 06/22 creatinine 1.85 and today creatinine is 1.69 mg/dL. Today patient states he is feeling better. He states some improvement in lower extremity edema. Patient states he does not weigh himself daily but does try to follow low sodium diet. He states does not take NSAIDs. [facility] Medical History (Updated 06/23/24 @ 09:51 by AYSHA Tian) Allergic rhinitis Valvular heart disease Chronic anemia Chronic idiopathic thrombocytopenia Former tobacco use CKD (chronic kidney disease), stage III Anxiety and depression Hypertension High cholesterol Lumbar radiculopathy Home Medications ?Medication ?Instructions ?Recorded ?Last Taken ?Type ascorbic acid (vitamin C) 1,000 mg 1,000 mg PO Q12H 10/12/22 10/11/22 History tablet,extended release (Vitamin C ER) cholecalciferol (vitamin D3) 25 25 mcg PO DAILY 10/12/22 10/11/22 History mcg (1,000 unit) tablet (Vitamin D3) metoprolol tartrate 25 mg tablet 25 mg PO BID 10/12/22 10/11/22 History multivitamin 1 tab PO DAILY 10/12/22 10/11/22 History vitamin B12 1,000 mcg-folic acid 1 tab sublingual DAILY supplement 10/12/22 10/11/22 History 400 mcg sublingual tablet valsartan 320 mg tablet 320 mg PO DAILY 06/06/24 Unknown History furosemide 40 mg tablet (Lasix) 40 mg PO DAILY fluid #30 tabs 06/08/24 10/05/22 Rx potassium chloride 10 mEq 10 meq PO DAILY #30 caps 06/08/24 Unknown Rx capsule,extended release rosuvastatin 10 mg tablet 10 mg PO QHS 06/22/24 Unknown History Allergy/AdvReac Type Severity Reaction Status Date / Time morphine Allergy Shortness Verified 06/22/24 06:30 of breath Family History Mother Anemia Glaucoma Father Prostate cancer Surgical History S/P total knee replacement Heart valve replaced Social History household members: none Smoking Status: Former smoker how long ago did patient quit smoking: Smoked 1 ppd teen until quit 1967 after of his daughter. alcohol intake: never substance use type: does not use ROS ROS Narrative as in HPI Physical Exam Narrative Alert and oriented x 3, no apparent distress S1, S2, RRR Lung sounds clear anteriorly. No rales or rhonchi. Slightly diminished posterior bases. On room air. Abdomen soft, nontender 1+ pitting edema bilateral lower leg External Shepherd catheter with clear yellow urine in canister Lab / Micro Data 06/23/24 06:17 06/23/24 06:17 Labs: Laboratory Results - last 24 hr 06/22/24 09:35: Serum Osmolality 316 H, Troponin I High Sens 78 06/22/24 11:40: Urine Color Yellow, Urine Clarity Clear, Urine pH 6.0, Ur Specific [place] 1.010, Urine Protein Negative, Urine Glucose (UA) Normal, Urine Ketones Negative, Urine Occult Blood 25 H, Urine Nitrite Negative, Urine Bilirubin Negative, Urine Urobilinogen Normal, Ur Leukocyte Esterase Negative, Urine RBC 0-5 SEEN, Urine WBC 0 SEEN, Ur Squamous Epith Cells 0 SEEN, Urine Bacteria 0 SEEN, Urine Mucus 0 SEEN, Urine Osmolality 389, U Random Total Protein 8.8, Ur Random Sodium 71, Urine Creatinine 61.60, Protein/Creatinin Ratio 143, Urine Potassium 22.0, Urine Chloride 90 06/22/24 12:08: Troponin I High Sens 68 06/23/24 06:17: WBC 9.0, RBC 4.14 L, Hgb 12.8 L, Hct 39.6 L, MCV 95.7 H, MCH 30.9, MCHC 32.3, RDW Std Deviation 45.9 H, RDW Coeff of [place] 13.2, Plt Count 98 L , MPV 11.3, Immature Gran % (Auto) 0.300, Neut % (Auto) 67.8, Lymph % (Auto) 17.5 L, [place] % (Auto) 11.6 H, Eos % (Auto) 2.2, Baso % (Auto) 0.6, Absolute Neuts (auto) 6.1, Absolute Lymphs (auto) 1.57, Nucleated RBC % 0, Sodium 143, P otassium 3.4 L, Chloride 109 H, Carbon Dioxide 29.0, Anion Gap 5, BUN 50 H, C reatinine 1.69 H, Estim Creat Clear Calc 38.92, Est GFR (MDRD) Af Amer 50 L, Est GFR (MDRD) Non-Af 42 L, BUN/Creatinine Ratio 29.6 H, Glucose 97, Calcium 8.9, T SH 4.200 H Rhythm Strip Rhythm Strip: Sinus Rhythm Rate: 55 Ectopy: PVC(s) (frequent)
--- NOTE | 2024-06-23 10:24 | US_ITS ---
STUDY: RENAL ULTRASOUND - COMPLETE REASON FOR EXAM: Male, 83 years old. MICHELLE TECHNIQUE: Ultrasound evaluation of the kidneys was performed with real-time and static hull-scale imaging. COMPARISON: None. FINDINGS: RIGHT KIDNEY: Normal location of the right kidney, which is normal in size. The right kidney measures 9.9 cm. There is a normal cortex of the right kidney. The renal cortex measures 1.0 cm. 2 cm cyst in the upper pole right kidney. 1.5 cm cyst lower pole right kidney. There are no right renal calculi. There is no right hydronephrosis. DISTAL RIGHT URETER: There is non-visualization of the distal right ureter. There is no demonstrated right ureterovesical junction calculus. There is a visualized right ureteral jet. LEFT KIDNEY: Normal location of the left kidney, which is normal in size. The left kidney measures 11.7 cm. There is a normal cortex of the left kidney. The renal cortex measures 1.0 cm. 2 cm exophytic isoechoic and anechoic mass of the midsection of left kidney worrisome for solid and cystic mass and correlation with renal mass protocol CT or MRI is recommended. 1 cm cyst in the lower pole left kidney. There are no left renal calculi. There is no left hydronephrosis. DISTAL LEFT URETER: There is non-visualization of the distal left ureter. There is no demonstrated left ureterovesical junction calculus. There is a visualized left ureteral jet. BLADDER: The distended urinary bladder has a volume of 70 ml. The empty urinary bladder has a volume of ml. There is a normal wall thickness of the distended urinary bladder. There is no demonstrated mass within the urinary bladder. There are no demonstrated bladder calculi. US/Kidney and Bladder IMPRESSION: No hydronephrosis to suggest obstruction. 2 cm exophytic solid and cystic mass of the midsection of left kidney and correlation with renal mass protocol CT or MRI is recommended. Electronically Signed: Khai Sylvester MD at 17:06 EST ,
--- NOTE | 2024-06-23 13:40 | CASEMGMT ---
MARIA FERNANDA APPLE Chart Review: Patient was admitted 06/06-06/08/24 for acute on chronic heart failure. See Assessment from 06/08/24. Patient was discharged to home with CCN referral, family support, and follow-up plans in place. Patient returned to [facility] ED for increased SOB. Patient was admitted CHF exacerbation and MICHELLE. Patient received Lasix IV. MARIA FERNANDA APPLE in to discuss needs at discharge and readmission. [facility] was unable to accept referral as patient is outside their geographical range. Patient attended follow-up appt with PCP and spring inspector. Patient was taking medications as prescribed. Patient states he was following dietary and fluid restrictions. Patient was not weighing self daily as he did not see the point. MARIA FERNANDA APPLE educated patient on the importance of monitor his weight daily to watch for fluid retention which can lead to SOB. Patient voiced understanding. Will monitor for home oxygen at discharge, prefers [employer]. Green sheet on chart. Patient denies further needs or concerns at discharge. Patient had no further questions or concerns.
[2024-06-23] MEDS: Senna/Docusate Sodium 1 Tablet 2 TABLET PO (21:08)
[2024-06-23] MEDS: Atorvastatin Calcium 20 MG Tablet PO (21:08)
[2024-06-24] VITALS (7 sets, daily range): BP systolic 108–141; BP diastolic 34–48; PULSE 62–72; RESP 14–16; TEMP 36.5–36.6; O2SAT 93–99; BMI 35.1
[2024-06-24 05:47] LABS: Anion Gap 5 (5-15); BUN 44 mg/dL (7-18); BUN/Creat Ratio 27.5 RATIO (10-20); Calcium,Total 8.9 mg/dL (8.5-10.1); Chloride 108 mmol/L (98-107); EST Glomerular Filtration Rate 44 mL/min (>60); Est Glom Filt Rate - Afr Amer 54 mL/min (>60); Estimated Creatinine Clearance 41.17 ml/min; Glucose 103 mg/dL (74-106); Magnesium 2.3 mg/dL (1.6-2.6); Potassium 3.3 mmol/L (3.5-5.1); Sodium Level 143 mmol/L (136-145)
[2024-06-24] MEDS: Spironolactone 25 MG Tablet PO (10:07)
[2024-06-24] MEDS: Menthol/Lanolin/Calamine/Znox 113 GM Tube 1 APPLIC TOPICAL (10:07)
[2024-06-24] MEDS: Ensure Plus High Protein 120 ML LIQUID PO (10:07)
[2024-06-24] MEDS: Multivitamins,Therapeutic Tablet 1 TABLET PO (10:07)
[2024-06-24] MEDS: 0.9% Saline Lock 10 ML Syringe IV ×2 (10:08→13:23)
[2024-06-24] MEDS: Ascorbic Acid 500 MG Tablet 1000 MG PO (10:08)
[2024-06-24] MEDS: Furosemide 40 MG/4 ML Vial IV (10:08)
[2024-06-24] MEDS: Senna/Docusate Sodium 1 Tablet 2 TABLET PO (10:08)
[2024-06-24] MEDS: Nystatin Powder 15gm Bottle 1 APPLIC TOPICAL (10:09)
[2024-06-24] MEDS: Metoprolol Tartrate 25 MG Tablet PO (10:09)
[2024-06-24] MEDS: Enoxaparin 40 MG/0.4 ML Syringe SC (10:09)
--- NOTE | 2024-06-24 11:33 | CT_ITS ---
EXAM: CT ABDOMEN AND PELVIS WITH INTRAVENOUS CONTRAST CLINICAL INDICATION: renal mass seen on us kidney TECHNIQUE: Helically acquired images were obtained of the abdomen and pelvis with intravenous contrast. This CT exam was performed using one or more of the following dose reduction techniques: automated exposure control, adjustment of the mA and/or kV according to patient size, and/or use of iterative reconstruction technique. CONTRAST: IV 75mL Isovue-370 RADIATION DOSE: CTDIvol = 22.91 mGy, DLP = 2145.48 mGy-cm COMPARISON: 01/06/2024, and ultrasound 06/23/2024 FINDINGS: LOWER THORAX: Bilateral moderate pleural effusions. Bilateral prominent compressive atelectasis of the lower lobes. No cardiomegaly. ABDOMEN: LIVER: Unremarkable. Homogeneous. No focal mass. GALLBLADDER AND BILE DUCTS: Cholecystectomy. No intra- or extrahepatic biliary ductal dilation. PANCREAS: Unremarkable. No focal cystic or solid mass. SPLEEN: Unremarkable. Normal size without focal cystic or solid mass. ADRENALS: Unremarkable. No nodules. KIDNEYS AND URETERS: No acute abnormality. Normal renal size and position. Bilateral exophytic masses are seen, stable since prior CT scan. One on the right is most consistent with simple cyst. One on the left is most consistent with a complex cyst as seen on ultrasound and unchanged since previous exam. No stones. No hydronephrosis. STOMACH AND BOWEL: Evaluation of the GI tract is limited by absence of oral contrast. Cannot exclude stomach wall thickening. No dilated loops of bowel or evidence for obstruction. Cannot exclude segmental thickening of the hall of the small or large bowel. Cannot exclude enteritis or colitis. Appendix within normal limits. PELVIS: APPENDIX: No evidence of acute appendicitis. BLADDER: Unremarkable. REPRODUCTIVE: Unremarkable as visualized. No mass. ABDOMEN and PELVIS: INTRAPERITONEAL SPACE: Unremarkable. No ascites or other fluid collection. No free air. BONES/JOINTS: Degenerative and postoperative changes of the lumbar spine with posterior fixation hardware at L3-L5. No suspicious lytic or blastic abnormality. SOFT TISSUES: Unremarkable. No discrete abdominal or pelvic wall hernia. VASCULATURE: Unremarkable. Abdominal aorta is non-dilated. LYMPH NODES: Unremarkable. No enlarged lymph nodes. CT/Abdomen/Pelvis WITH Contrast IMPRESSION: 1. Bilateral pleural effusions and compressive atelectasis of the lower lobes. 2. No definite acute or significant abnormality seen. Electronically Signed: Alessandro Aden MD at 16:51 EST ,
--- NOTE | 2024-06-24 11:36 | PN.RENAL_ITS ---
Subjective Subjective no new events Objective Data Objective Data Vital Signs: Vital Signs Temp Pulse Resp BP Pulse Ox O2 Del Method 97.7 F L 70 16 118/42 L 96 Room Air 06/24/24 09:54 06/24/24 10:09 06/24/24 09:54 06/24/24 09:54 06/24/24 09:54 06/24/24 09:54 Oxygen Delivery Method Room Air Weight: 101.8 kg Body Mass Index (BMI) 35.1 Intake & Output: Intake and Output for Last 24 Hours 06/22/24 06/23/24 06/24/24 23:59 23:59 23:59 Intake Total 400 / 400 520 / 620 175 / 175 Output Total 200 / 1100 1900 / 2200 500 / 500 Balance 200 / -700 -1380 / -1580 -325 / -325 Lab / Micro Data 06/23/24 06:17 06/24/24 04:36 Labs: Laboratory Results - last 24 hr 06/24/24 04:36: Sodium 143, Potassium 3.3 L, Chloride 108 H, Carbon Dioxide 30.0, Anion Gap 5, BUN 44 H, Creatinine 1.60 H, Estim Creat Clear Calc 41.17, E st GFR (MDRD) Af Amer 54 L, Est GFR (MDRD) Non-Af 44 L, BUN/Creatinine Ratio 27.5 H, Glucose 103, Calcium 8.9, Magnesium 2.3 Radiography Diagnostic Testing: Radiology Impression Cervical Spine X-Ray 06/23/24 09:36 IMPRESSION: Status post anterior cervical discectomy and fusion from C4 through C6 with 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 Electronically Signed: Khai Sylvester MD at 12:09 EST , Renal Ultrasound 06/23/24 10:24 IMPRESSION: No hydronephrosis to suggest obstruction. 2 cm exophytic solid and cystic mass of the midsection of left kidney and correlation with renal mass protocol CT or MRI is recommended. Electronically Signed: Khai Sylvester MD at 17:06 EST , Rhythm Strip Rhythm Strip: Sinus Rhythm Rate: 55 Ectopy: PVC(s) (frequent) Physical Exam Narrative Alert and oriented x 3, no apparent distress S1, S2, RRR Lung sounds clear anteriorly. No rales or rhonchi. Slightly diminished posterior bases. On room air. Abdomen soft, nontender 1+ pitting edema bilateral lower leg Assessment & Plan Assessment/Plan (1) MICHELLE (acute kidney injury): (2) CKD (chronic kidney disease), stage III: (3) Acute on chronic heart failure with preserved ejection fraction (HFpEF): PLAN: Plan This is an 83-year-old male with past medical history significant for hypertension, dyslipidemia, chronic idiopathic thrombocytopenia, anxiety/depression, aortic stenosis status post aortic valve replacement. Patient admitted for acute on chronic heart failure. Last echocardiogram 06/08/2024: EF 60%, mild concentric left ventricular hypertrophy, left ventricular systolic function normal. CXR on admission showed b/l pleural effusions. UA negative for bacteria or blood. Urine protein creatinine ratio 143 mg/g. CKD 3B cardiorenal syndrome CHF lasix to 80 mg BID PO continue aldactone will assess for ACEI and SGLT2 as outpatient renal mass. 2 cm mass. compared to CT from December 2023 this is completely new. 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 will get CT with contrast. will arrange Urology evaluation outpatient depending on CT. dw family at bedside
[2024-06-24] MEDS: 0.9% Normal Saline (500mL Bag) 500 ML IV (13:23)
--- NOTE | 2024-06-24 14:30 | PCM.DC.SUM ---
Providers Date of Admission: 06/22/24 Date of Discharge: 06/24/24 Primary Care Physician: Khai Ibarra, [employer] Consultations 06/22/24 08:57 Consult: Nephrology Routine Consulting Provider: Beverly Banks Reason for Consult: MICHELLE in diuretics, SOB, hypoxia EMERGENT Consult: No MD Notified: Yes Date Notified: 06/22/24 Time Notified: 08:17 Method of Notification: Verbal Reason For Visit: SOB, CHF EXA MICHELLE Diagnosis Discharge Diagnosis (1) MICHELLE (acute kidney injury): Status: Acute Code(s): N17.9 - Acute kidney failure, unspecified (2) CKD (chronic kidney disease), stage III: Status: Chronic Code(s): N18.30 - Chronic kidney disease, stage 3 unspecified (3) Acute on chronic heart failure with preserved ejection fraction (HFpEF): Status: Acute Code(s): I50.33 - Acute on chronic diastolic (congestive) heart failure Plan Patient is an 83-year-old gentleman who presented with progressive shortness of breath. An assessment of acute on chronic congestive heart failure with preserved ejection fraction as well as MICHELLE was made admitted to monitored bed for further management 1. Acute on chronic congestive heart failure with preserved ejection fraction ? 2D echo obtained on 06/06/2024 demonstrated LVEF of 60% with mild concentric left ventricular hypertrophy and bioprosthetic aortic valve. Patient was managed with furosemide, low-sodium diet, strict input and output, daily weight as well as fluid restriction patient responded to treatment 2. Acute kidney injury ? Thought to be secondary to hypoperfusion from CHF was seen in consultation by nephrology patient underwent renal ultrasound which did demonstrate 2 cm exophytic solid and cystic mass involving the mid section of the left kidney 2. Kidney mass ? Case was discussed with nephrology patient underwent CT of the abdomen and pelvis with contrast prior to discharge plans for patient to follow-up with nephrology as outpatient for results of CAT scan and subsequent care 4. Hypertension ? Blood pressure controlled, home medications continued with dose adjustment as needed 5. Dyslipidemia ?Patient is on statin therapy, continued at home dose 6. DVT prophylaxis ? On enoxaparin 7. Physical deconditioning ? Requested for PT OT eval and child welfare social worker to assist with discharge planning. Patient was discharged home with home PT Medications at Discharge Home Medications ascorbic acid (vitamin C) 1,000 mg tablet,extended release (Vitamin C ER) 1,000 mg PO Q12H 10/12/22 cholecalciferol (vitamin D3) 25 mcg (1,000 unit) tablet (Vitamin D3) 25 mcg PO DAILY 10/12/22 metoprolol tartrate 25 mg tablet 25 mg PO BID 10/12/22 multivitamin 1 tab PO DAILY 10/12/22 vitamin B12 1,000 mcg-folic acid 400 mcg sublingual tablet 1 tab sublingual DAILY supplement 10/12/22 potassium chloride 10 mEq capsule,extended release 10 meq PO DAILY #30 caps 06/08/24 rosuvastatin 10 mg tablet 10 mg PO QHS 06/22/24 furosemide 80 mg tablet (Lasix) 80 mg PO BID #120 tabs 06/24/24 spironolactone 25 mg tablet 25 mg PO DAILY #60 tabs 06/24/24 Hospital Course Summary of Care Provided Minutes Spent on Discharge: 35 Physical Exam Narrative GENERAL: cooperative HEENT: Atraumatic; normocephalic EYES; Anicteric, Normal Conjunctiva NECK; supple, normal thyroid, RESPIRATORY: Diminished to auscultation CARDIOVASCULAR: Regular S1 S2, GI: soft, normoactive bowel sounds, : No Renal angle tenderness; EXTREMITIES: No edema, no clubbing, MUSCULOSKELETAL: no muscle wasting NEURO: Awake; no lateralizing signs. SKIN: No Rash PSYCH; Flat affect Weight / BMI Weight Weight: 101.8 kg Body Mass Index (BMI) 35.1 ABG / Lab / Microbiology Data 06/23/24 06:17 06/24/24 04:36 Laboratory: Laboratory Results - last 24 hr 06/24/24 04:36: Sodium 143, Potassium 3.3 L, Chloride 108 H, Carbon Dioxide 30.0, Anion Gap 5, BUN 44 H, Creatinine 1.60 H, Estim Creat Clear Calc 41.17, Est GFR (MDRD) Af Amer 54 L, Est GFR (MDRD) Non-Af 44 L, BUN/Creatinine Ratio 27.5 H, Glucose 103, Calcium 8.9, Magnesium 2.3 Radiography Diagnostic Testing: Radiology Impression Renal Ultrasound 06/23/24 10:24 IMPRESSION: No hydronephrosis to suggest obstruction. 2 cm exophytic solid and cystic mass of the midsection of left kidney and correlation with renal mass protocol CT or MRI is recommended. Electronically Signed: Khai Sylvester MD at 17:06 EST , D/C Instructions Discharge Diet: 8 Cup Fluid Restriction and 2000 mg Sodium Diet Discharge Activity: Return to Normal Activity Call your doctor if you observe: Fever of 101 or Higher, Shortness of breath, Fainting spells and Chest pain DC O2, CPAP, BIPAP Needs Home O2 Discharge instructions: No Meaningful Use Info Meaningful Use Meaningful Use Diagnoses (Choose all that apply): CHF CHF ELEAZAR/ARB ordered at discharge?: No Reason ELEAZAR/ARB not ordered?: Worsening renal function Documented LVEF (%): 60 Ischemic Stroke Statin Dosing Therapy Reference: STATIN DOSE THERAPY REFERENCE: * Patients > 75 years receive moderate or high dose statin therapy. * Patients 75 years or YOUNGER should receive HIGH intensity statin dose unless contraindicated. You will be required to document reason for non-treatment if statin daily dose does not meet guidelines. HIGH DOSE STATIN THERAPY DAILY Atorvastatin > than or = to 40 mg Rosuvastatin > than or = to 20 mg Amlodipine + Atorvastatin > than or = to 2.5/40 mg Ezetimibe + Simvastatin 10/80 mg Simvastatin 80mg Discharge Plan Admission Admit Date/Time: 06/22/24 08:10 Attending Provider: Arturo Edwards Primary Care Provider: Khai Ibarra [employer] Consulting Providers: Beverly Banks; Babak Ryan Discharge Orders/Prescriptions Prescriptions: New spironolactone 25 mg Tablet 25 mg PO DAILY Qty: 60 0RF furosemide [Lasix] 80 mg tablet 80 mg PO BID Qty: 120 0RF Continued multivitamin Tablet 1 tab PO DAILY Vitamin C 1,000 mg Tablet Extended Release 1,000 mg PO Q12H metoprolol tartrate 25 mg tablet 25 mg PO BID cholecalciferol (vitamin D3) [Vitamin D3] 25 mcg (1,000 unit) Tablet 25 mcg PO DAILY vitamin F00-omevu acid 1,000-400 mcg Tablet, Sublingual 1 tab SUBLINGUAL DAILY potassium chloride 10 mEq capsule, extended release 10 meq PO DAILY Qty: 30 0RF rosuvastatin 10 mg tablet 10 mg PO QHS Discontinued valsartan 320 mg tablet 320 mg PO DAILY furosemide [Lasix] 40 mg Tablet 40 mg PO DAILY Qty: 30 0RF Referrals / Follow Up: Beverly Banks MD [Med Staff - Consulting] - Within 1 Week (For follow-up of CT scan result) Khai Ibarra NP, [employer] [Primary Care Provider] - Within 1 Week Disposition Disposition (needs filled in before D/C Order can be placed): Home Health Service Charges/Coding Visit Charges Inpatient E&M: 90229 Disch Hosp >30min
== END 2024-06-24 17:47 | disposition home health service (06) | DRG 291 ==
LOC: ED 07:52 → PCU 08:26
PROVIDERS: Nurse Practitioner Adult Health; Admitting Provider Internal Medicine; Emergency Provider Emergency Medicine; PCP Nurse Practitioner Family; Visit Provider Internal Medicine
DX: I13.0 Hypertensive heart and chronic kidney disease with heart failure and stage 1 through stage 4 chronic kidney disease, or unspecified chronic kidney disease (principal); I50.33 Acute on chronic diastolic (congestive) heart failure; N17.9 Acute kidney failure, unspecified; Z66 Do not resuscitate; N18.32 Chronic kidney disease, stage 3b; F32.A Depression, unspecified; Z95.2 Presence of prosthetic heart valve; E78.00 Pure hypercholesterolemia, unspecified; F41.9 Anxiety disorder, unspecified; N28.89 Other specified disorders of kidney and ureter; R53.81 Other malaise; Z79.899 Other long term (current) drug therapy; Z87.891 Personal history of nicotine dependence
CPT/HCPCS: 36415; 71045; 72040; 74177; 76770; 80048; 81001; 82436; 82570; 83735; 83880; 83930; 83935; 84100; 84133; 84156; 84300; 84443; 84484; 84550; 85025; 93005; 94668; 97110; 97116; 97162; 97166; 97530; 97535; 97802; 99285; Q9967; A4216; J1940

== ENCOUNTER 2024-07-06 17:19 | Emergency (ER) | payer MEDICARE, OTHER, SELFPAY ==
[2024-07-06] VITALS (7 sets, daily range): BP systolic 134–150; BP diastolic 48–58; PULSE 61–83; RESP 16–19; TEMP 36.6; O2SAT 90–96
--- NOTE | 2024-07-06 17:55 | EKG12_ITS ---
Test Reason : SOB Blood Pressure : */* mmHG Vent. Rate : 80 BPM Atrial Rate : * BPM P-R Int : * ms QRS Dur : 132 ms QT Int : 418 ms P-R-T Axes : * -53 65 degrees QTcB Int : 482 ms Atrial fibrillation Right bundle branch block Left anterior fascicular block Bifascicular block Abnormal ECG Confirmed by JACQUELINE MANZANO, MARTHA ([id number]), rewrite editor WANDA HUERTA ([id number]) on 07/07/2024 9:26:08 AM Referred By: EMILI Confirmed By: MARTHA PHILLIPS MD
--- NOTE | 2024-07-06 17:58 | EDS_ITS ---
HPI History of Present Illness Chief Complaint: Shortness of Breath Informant: patient and spouse/S.O. Narrative Narrative: Presents here with spouse worsening dyspnea today. History of heart failure preserved ejection fraction states leg swelling is normal not worsening. No orthopnea. No cough. No chest pains. Denies fever chills or sweats. He was hospitalized 12 days ago. He is on Lasix for a week he states he has been take his home medicines at 40 mg twice a day. I did evaluate his records he was hospitalized 12 days discharged on Lasix 80 mg twice a day along with spironolactone his pill bottles were picked up yesterday from the pharmacy for 80 mg twice a day and spironolactone once a day. He has been only doing his 40 mg twice a day last dose this morning. He does not check his weight. Prior similar symptoms: Yes PFSH [facility] Medical History Allergic rhinitis Valvular heart disease Chronic anemia Chronic idiopathic thrombocytopenia Former tobacco use CKD (chronic kidney disease), stage III Anxiety and depression Hypertension High cholesterol Lumbar radiculopathy Home Medications ?Medication ?Instructions ?Recorded ?Last Taken ?Type ascorbic acid (vitamin C) 1,000 mg 1,000 mg PO Q12H 10/12/22 10/11/22 History tablet,extended release (Vitamin C ER) cholecalciferol (vitamin D3) 25 25 mcg PO DAILY 10/12/22 10/11/22 History mcg (1,000 unit) tablet (Vitamin D3) metoprolol tartrate 25 mg tablet 25 mg PO BID 10/12/22 10/11/22 History multivitamin 1 tab PO DAILY 10/12/22 10/11/22 History vitamin B12 1,000 mcg-folic acid 1 tab sublingual DAILY supplement 10/12/22 10/11/22 History 400 mcg sublingual tablet potassium chloride 10 mEq 10 meq PO DAILY #30 caps 06/08/24 Unknown Rx capsule,extended release rosuvastatin 10 mg tablet 10 mg PO QHS 06/22/24 Unknown History furosemide 80 mg tablet (Lasix) 80 mg PO BID #120 tabs 06/24/24 Unknown Rx spironolactone 25 mg tablet 25 mg PO DAILY #60 tabs 06/24/24 Unknown Rx Allergy/AdvReac Type Severity Reaction Status Date / Time bee venom protein (honey Allergy Severe Anaphylaxis Verified 07/06/24 17:28 bee) (bee stings) morphine Allergy Shortness Verified 06/22/24 06:30 of breath Family History Mother Anemia Glaucoma Father Prostate cancer Surgical History S/P total knee replacement Heart valve replaced Social History household members: none Smoking Status: Former smoker how long ago did patient quit smoking: Smoked 1 ppd teen until quit 1967 after of his daughter. alcohol intake: never substance use type: does not use ROS ROS ED Constitutional Constitutional ED: Denies chills, fever(s) or sweats ENT ENT ED: Denies sore throat Cardiovascular Cardiovascular: Reports leg edema; Denies chest pain, palpitations or racing heartbeat Respiratory/Chest Respiratory/Chest: Reports dyspnea; Denies cough or dyspnea on exertion Gastrointestinal Gastrointestinal: Denies abdominal pain, diarrhea, nausea or vomiting Genitourinary Genitourinary ED: Denies dysuria, hematuria or urinary frequency Musculoskeletal Musculoskeletal: Denies back pain, extremity pain or neck pain Integumentary Denies rash or wounds Neurologic Neurologic: Denies headache(s), paresthesias or weakness EXAM Physical Exam Const Vital Signs: 07/06/24 17:20 07/06/24 17:23 07/06/24 17:28 Temperature 98 F Temperature Source Oral Pulse Rate 75 64 Respiratory Rate 18 18 Respiratory Effort Short of Breath Respiratory Depth Normal Respiratory Pattern Normal Blood Pressure 134/51 H 135/57 H Blood Pressure Mean 78 83 Pulse Ox 90 92 Oxygen Delivery Method Room Air Room Air 07/06/24 18:20 07/06/24 19:00 07/06/24 20:00 Temperature Temperature Source Pulse Rate 83 62 61 Respiratory Rate 16 18 19 H Respiratory Effort Respiratory Depth Respiratory Pattern Blood Pressure 144/48 H 150/58 H Blood Pressure Mean 80 88 Pulse Ox 94 95 94 Oxygen Delivery Method Room Air Room Air Room Air 07/06/24 20:21 Temperature 98 F Temperature Source Pulse Rate 64 Respiratory Rate 18 Respiratory Effort Respiratory Depth Respiratory Pattern Blood Pressure 150/58 H Blood Pressure Mean 88 Pulse Ox 96 Oxygen Delivery Method Positive well nourished and well developed General Appearance ED: well developed and NAD HEENT Reports moist mucous membranes normocephalic and atraumatic Eyes General Eye ED: Yes normal appearance of both eyes Neck full ROM Chest Wall Chest Narrative: Midline chest scar healed from previous valve repair. Chest: Negative for tenderness Resp normal respiratory effort and normal air movement Effort and Inspection: symmetric chest movement; Negative for respiratory distress Cardio regular rate, regular rhythm and no murmurs Rhythm: abnormal rhythm Peripheral Pulses: pulses 2+ throughout GI normal to inspection, nondistended, normoactive bowel sounds and non-tender Palpation: Negative for guarding or rebound tenderness present Extremity normal to inspection Extremity Narrative: 2+ lower extremity edema bilaterally. General Extremety ED: Yes edema; Negative for tenderness General Extremity: edema Neuro oriented x3 and no sensory deficits noted Sensorium / Orientation: awake and alert Skin no rashes or lesions noted and no wounds MDM MDM MDM Narrative Medical decision making narrative: Interventions / MDM: Differential diagnosis: CHF, chronic kidney disease Diagnosis considered but do not suspect: N/A My EKG interpretation: Sinus arrhythmia rate of 80, no atrial fibrillation there is P waves noted. Electronically was reading A-fib. Review from previous EKGs also similar. Imaging independently reviewed and interpreted by myself: 2 view chest x-ray: Bilateral pleural effusions right greater than left. External documents reviewed: Recent hospitalization discharged on Lasix 80 mg twice daily and spironolactone. Echocardiogram June 06, 2024 EF 60% mild 1+ tricuspid valve regurgitation. Test considered but not ordered:N/A ED course: EKG sinus arrhythmia. Patient currently not hypoxic he did come in 90% room air went up to 92. Chronic similar leg swelling. Apparently not taking his discharge medications. He was also admitted for slight MICHELLE. Will check labs, chest x-ray for further evaluation. Chest x-ray bilateral pleural effusions right greater than the left. Labs stable BNP 842 similar from his hospitalization BNP. Hemolyzed potassium recheck 4.5 creatinine 1.5 down from 1.9. Hemoglobin 12.7 white count 10.9. He was ambulated pulse ox was stable. He was not taking his diuretics as he supposed to when he was discharged 12 days ago. He has to prescription. He would like to start him when he gets home. With his stable pulse ox, did not feel admission was necessary. He agrees. He will take his medication at home. Return precautions. All questions were answered. Re-evaluation: stable Disposition discussed with patient/family/significant other: Patient and spouse Case discussed with consulting clinician: N/A This note was generated with [employer] dictation software. It may contain incorrect words, spelling, and punctuation that were not noted in checking the note before signing. Lab Data Attestation: I reviewed the patient's lab results. Labs: Laboratory Results - last 24 hr 07/06/24 07/06/24 17:38 18:45 WBC 10.9 RBC 3.99 L Hgb 12.7 L Hct 38.9 L MCV 97.5 H MCH 31.8 MCHC 32.6 RDW Std Deviation 46.3 H RDW Coeff of [place] 13.1 Plt Count 122 L MPV 11.0 Immature Gran % (Auto) 0.500 Neut % (Auto) 80.7 H Lymph % (Auto) 8.8 L [place] % (Auto) 8.0 Eos % (Auto) 1.5 Baso % (Auto) 0.5 Absolute Neuts (auto) 8.8 H Absolute Lymphs (auto) 0.96 Nucleated RBC % 0 Sodium 139 Potassium 7.1 H* 4.5 Chloride 113 H Carbon Dioxide 23.0 Anion Gap 3 L BUN 42 H Creatinine 1.52 H Est GFR (MDRD) Af Amer 57 L Est GFR (MDRD) Non-Af 47 L BUN/Creatinine Ratio 27.6 H Glucose 118 H Calcium 8.7 B-Natriuretic Peptide 842.1 H Radiography Diagnostic Testing: Clinical Impression(s) from Imaging Studies Chest X-Ray 07/06/24 18:06 IMPRESSION: 1. Postop changes of median sternotomy and prosthetic valve ring noted. 2. Stable borderline cardiomegaly, no congestive failure. 3. Small bilateral effusions greater on LEFT than RIGHT. 4. No focal infiltrate. Electronically Signed: Khai Interiano MD at 18:27 EST , Discharge Plan Triage Chief Complaint: Shortness of Breath ED Provider: Sonny Thomas Dx/Rx/DC Orders Clinical Impression: CHF (congestive heart failure), CKD (chronic kidney disease) Instructions: ED CHF Left Side, ED Chronic Kidney Disease (CKD) Prescriptions: No Action multivitamin Tablet 1 tab PO DAILY Vitamin C 1,000 mg Tablet Extended Release 1,000 mg PO Q12H metoprolol tartrate 25 mg tablet 25 mg PO BID cholecalciferol (vitamin D3) [Vitamin D3] 25 mcg (1,000 unit) Tablet 25 mcg PO DAILY vitamin [id number] acid 1,000-400 mcg Tablet, Sublingual 1 tab SUBLINGUAL DAILY potassium chloride 10 mEq capsule, extended release 10 meq PO DAILY Qty: 30 0RF rosuvastatin 10 mg tablet 10 mg PO QHS spironolactone 25 mg Tablet 25 mg PO DAILY Qty: 60 0RF furosemide [Lasix] 80 mg tablet 80 mg PO BID Qty: 120 0RF Primary Care Provider: Khai Ibarra NP Referrals: Khai Ibarra NP, [employer] [Primary Care Provider] - 1 Week Activity Restrictions/Additional Instructions: Chest x-ray about pleural effusions. Your kidney function creatinine 1.52 with GFR of 47. Improved from your previous 1 during the hospital. Take your me dication as prescribed in your discharge of Lasix 80 mg twice a day and your spironolactone 25 mg daily. Follow-up with your doctors for recheck of your lab work and your symptoms. Print Language: [place] Disposition Disposition: Home, Self Care Discharge Date/Time: 07/06/24 20:22
[2024-07-06 18:05] LABS: Absolute Lymphocyte Count 0.96 X10^3/uL (0.83-4.51); Absolute Neutrophil Count 8.8 X10^3/uL (2.0-7.7); Basophil# 0.06 X10^3/uL; Basophil% 0.5 % (0-1); Eosinophil# 0.16 X10^3/uL; Eosinophils% 1.5 % (0-5); Hematocrit 38.9 % (40-54); Hemoglobin 12.7 g/dL (13.0-16.5); Lymphocyte # 0.96 X10^3/ul (0.83-4.51); Lymphocyte % 8.8 % (19-41); Mean Corp Hgb Conc 32.6 g/dL (32-36); Mean Corpuscular Hgb 31.8 pg (27.0-32.0); Mean Corpuscular Volume 97.5 fL (80-94); Monocyte# 0.87 X10^3/uL; NRBC Flagged by Analyzer 0 % (0-5); Neutrophil # 8.81 X10^3/uL (2.7-7.7); Neutrophil % 80.7 % (47-70); Platelet Count 122 K/mm3 (150-450); RBC Distribution Width CV 13.1 % (11.6-14.6); RBC Distribution Width SD 46.3 fl (35.1-43.9); Red Blood Count 3.99 M/mm3 (4.6-6.2); White Blood Count 10.9 K/mm3 (4.4-11.0)
--- NOTE | 2024-07-06 18:06 | RAD_ITS ---
INDICATION: sob EXAMINATION/TECHNIQUE: X-RAY - XR Chest 2 Views COMPARISON: 06/22/2024 FINDINGS: LIFE-SUPPORT AND LINES: 1. Median sternotomy wires again noted. There is a prosthetic valve ring. HEART AND VESSELS: Cardiac silhouette is upper limit of normal, no evidence congestive failure LUNGS AND PLEURAL SPACES: Minimal atelectasis at the lung bases, there are bilateral posterior effusions and a small LEFT lateral effusion noted. Mild basilar atelectasis noted. Scattered granulomata also noted. MEDIASTINUM AND HILAR REGIONS: No masses adenopathy noted. No areas of calcification. Visualized upper airway is normal in position. BONY ELEMENTS: No acute bony changes noted. Chronic degenerative changes involving both shoulders. RAD/Chest PA and Lateral IMPRESSION: 1. Postop changes of median sternotomy and prosthetic valve ring noted. 2. Stable borderline cardiomegaly, no congestive failure. 3. Small bilateral effusions greater on LEFT than RIGHT. 4. No focal infiltrate. Electronically Signed: Khai Interiano MD at 18:27 EST ,
[2024-07-06 18:25] LABS: Anion Gap 3 (5-15); BUN 42 mg/dL (7-18); BUN/Creat Ratio 27.6 RATIO (10-20); Calcium,Total 8.7 mg/dL (8.5-10.1); Chloride 113 mmol/L (98-107); Creatinine, Serum 1.52 mg/dL (0.70-1.30); EST Glomerular Filtration Rate 47 mL/min (>60); Est Glom Filt Rate - Afr Amer 57 mL/min (>60); Glucose 118 mg/dL (74-106); Potassium 7.1 mmol/L (3.5-5.1); Sodium Level 139 mmol/L (136-145)
[2024-07-06 18:30] LABS: BNP,B-Type NATRIURETIC PEPTIDE 842.1 pg/mL (0-100)
[2024-07-06 19:00] LABS: Potassium 4.5 mmol/L (3.5-5.1)
== END 2024-07-06 20:22 | disposition home or self-care (01) ==
PROVIDERS: Emergency Provider Emergency Medicine; PCP Nurse Practitioner Family; Visit Provider Emergency Medicine
DX: I13.0 Hypertensive heart and chronic kidney disease with heart failure and stage 1 through stage 4 chronic kidney disease, or unspecified chronic kidney disease (principal); I50.9 Heart failure, unspecified; N18.30 Chronic kidney disease, stage 3 unspecified; E78.00 Pure hypercholesterolemia, unspecified; Z79.899 Other long term (current) drug therapy; Z87.891 Personal history of nicotine dependence
CPT/HCPCS: 71046; 80048; 83880; 84132; 85025; 93005; 99285; A4216

== ENCOUNTER → 2024-08-04 | Outpatient (CLI) | payer MEDICARE, OTHER, SELFPAY ==
[2024-08-04 21:11] LABS: Hemoglobin A1c 5.9 % (3.8-5.6)
== END | disposition home or self-care (01) ==
LOC: LAB 14:23
PROVIDERS: PCP Nurse Practitioner Family; Referring Provider Internal Medicine Cardiovascular Disease; Visit Provider Internal Medicine Cardiovascular Disease
DX: R73.9 Hyperglycemia, unspecified (principal); I50.9 Heart failure, unspecified
CPT/HCPCS: 36415; 83036

== ENCOUNTER 2024-08-30 10:30 | Inpatient (IN) | payer MEDICARE, OTHER, SELFPAY ==
[2024-08-30 10:31] VITALS: BP 114/44; PULSE 89; RESP 16; TEMP 36.4; O2SAT 98; BMI 33.5
--- NOTE | 2024-08-30 11:11 | RAD_ITS ---
PROCEDURE: LUMBAR SPINE 2 OR 3 VIEWS REASON FOR EXAM: 83-year-old male, lower back pain radiating into the left hip. No known injury. TECHNIQUE: 3 view(s) of the lumbar spine COMPARISON: None. FINDINGS: Prior posterior instrumentation and fusion at L3-5 with prior laminectomies. No hardware lucency or fracture. Normal lumbar vertebral heights. No evidence of fracture. Moderate multilevel degenerative disc disease with anterior bridging disc osteophyte complexes, compatible with DISH. Normal alignment. No spondylolisthesis. Cholecystectomy clips. RAD/Lumbar Spine 2 or 3 Views IMPRESSION: Prior posterior instrumentation and spinal fixation at L3-5 with laminectomies. No acute fracture. Reading Location: [id number]
--- NOTE | 2024-08-30 11:12 | ED.VIS.BACK ---
HPI <DIANNA Guillen - Last Filed: 08/30/24 14:29> History of Present Illness Chief Complaint: Back Narrative Narrative: 83-year-old male with past medical history of lumbar surgery/ablation states he lost his balance and fell next to his bed 2 nights ago. He slept on the ground. The next day his neighbor helped him up and since then he is ambulatory but has had low back soreness and left hip pain. When he fell he thinks he landed on his knees but he is not sure. He denies head injury or LOC. He is not on blood thinners. He states he was able to ambulate today but called EMS for transport. He denies weakness or numbness or tingling. No saddle anesthesia or bladder bowel incontinence. He tried Tylenol without much relief. PENDING SALE TO [facility] <DIANNA Guillen - Last Filed: 08/30/24 14:29> PENDING SALE TO [facility] Medical History CVA (cerebrovascular accident due to intracerebral hemorrhage) Endocarditis Anemia Hyperlipidemia Hypokalemia HART (dyspnea on exertion) Elevated troponin Pitting edema Acute respiratory insufficiency Pleural effusion Hypoxia Acute on chronic heart failure with preserved ejection fraction (HFpEF) CHF (congestive heart failure) Allergic rhinitis Valvular heart disease Chronic anemia Chronic idiopathic thrombocytopenia Former tobacco use CKD (chronic kidney disease), stage III Anxiety and depression Hypertension High cholesterol Lumbar radiculopathy Home Medications ?Medication ?Instructions ?Recorded ?Last Taken ?Type ascorbic acid (vitamin C) 1,000 mg 1,000 mg PO Q12H 10/12/22 10/11/22 History tablet,extended release (Vitamin C ER) cholecalciferol (vitamin D3) 25 25 mcg PO DAILY 10/12/22 10/11/22 History mcg (1,000 unit) tablet (Vitamin D3) metoprolol tartrate 25 mg tablet 25 mg PO BID 10/12/22 10/11/22 History multivitamin 1 tab PO DAILY 10/12/22 10/11/22 History vitamin B12 1,000 mcg-folic acid 1 tab sublingual DAILY supplement 10/12/22 10/11/22 History 400 mcg sublingual tablet potassium chloride 10 mEq 10 meq PO DAILY #30 caps 06/08/24 Unknown Rx capsule,extended release furosemide 80 mg tablet (Lasix) 80 mg PO BID #120 tabs 06/24/24 Unknown Rx spironolactone 25 mg tablet 25 mg PO DAILY #60 tabs 06/24/24 Unknown Rx rosuvastatin 40 mg tablet 40 mg PO QDAY #90 tabs 08/04/24 Unknown Rx Allergy/AdvReac Type Severity Reaction Status Date / Time bee venom protein (honey Allergy Severe Anaphylaxis Verified 08/30/24 10:31 bee) (bee stings) morphine Allergy Shortness Verified 08/30/24 10:31 of breath Family History Mother Anemia Glaucoma Father Prostate cancer Surgical History History of heart valve repair History of colonoscopy History of cholecystectomy History of tonsillectomy and adenoidectomy History of repair of rotator cuff S/P total knee replacement Heart valve replaced Social History household members: none Smoking Status: Former smoker how long ago did patient quit smoking: Smoked 1 ppd teen until quit 1967 after of his daughter. alcohol intake: never substance use type: does not use ROS <DIANNA Guillen - Last Filed: 08/30/24 14:29> ROS ED ROS Narrative Constitutional: Negative for fever, chills, malaise. CVS: Negative for chest pain. Respiratory: Negative for shortness of breath. GI: Negative for abdominal pain, nausea, vomiting. Musc: Positive for left hip pain. EXAM <DIANNA Guillen - Last Filed: 08/30/24 14:29> Physical Exam Narrative Exam Narrative: CONST: Patient sitting in no acute distress. EYES: Normal inspection. NECK: Normal inspection. RESP: No respiratory distress, CTAB. CVS: Regular rate and rhythm, no murmur, no gallop. ABD: Soft and nontender, no guarding or rebound, nondistended. Back: Normal inspection, no midline tenderness. Hold midline lumbar surgical scar. SKIN: Color normal, no rash, warm, dry, intact. EXTREMITIES: Normal appearance, 5/5 strength in dorsiflexion and plantarflexion. Sensation intact. 2+ DP pulses. Bilateral ankle edema. NEURO: Alert and answering questions appropriately. Difficulty sitting up in bed requiring assistance to lean forward, cannot stand or ambulate. PSYCH: Normal affect. Const Vital Signs: 08/30/24 10:31 08/30/24 12:00 Temperature 97.6 F L Temperature Source Oral Pulse Rate 89 Respiratory Rate 16 Blood Pressure 114/44 L Blood Pressure Mean 67 Pulse Ox 98 79 Oxygen Delivery Method Room Air Room Air <Dr. Krishna Tejada MD - Last Filed: 08/30/24 12:41> Physical Exam Const Vital Signs: 08/30/24 10:31 08/30/24 12:00 Temperature 97.6 F L Temperature Source Oral Pulse Rate 89 Respiratory Rate 16 Blood Pressure 114/44 L Blood Pressure Mean 67 Pulse Ox 98 79 Oxygen Delivery Method Room Air Room Air MDM <DIANNA Guillen - Last Filed: 08/30/24 14:29> [facility] MDM Narrative Medical decision making narrative: Differential includes but not limited to lumbar musculoskeletal pain, fracture, no signs or symptoms of radiculopathy or cauda equina 83-year-old male fell 2 days ago and presents with lumbar and left hip pain. He had lumbar surgery about 5 years ago. He states he has been ambulating at home but here is too weak to even sit up in the bed without assistance. He has no reproducible pain in his back with palpation but has pain with movement. Lower extremities are neurovascularly intact. He has no red flag signs concerning for cauda equina syndrome. Lumbar x-rays show hardware intact without acute fracture. Left hip and pelvics x-ray negative. Patient was given IV fentanyl and Zofran for pain with improvement but did transiently become hypoxic and was placed on 2 L of oxygen. Patient insist that he wants to go home but he is too weak to sit up in bed or stand and ambulate on his own. Labs were obtained. WBC is 14.6. Hemoglobin 10.0, platelets 125. He has a history of anemia and thrombocytopenia. Electrolyte panel is normal, BUN 62, creatinine 1.64. He has chronic kidney disease but with BUN elevation I suspect dehydration and ordered IV fluids. Urinalysis is negative. Patient requires admission for generalized weakness, low back pain, and inability to ambulate. I discussed the case with the hospitalist. I have personally performed a face to face assessment of the patient and have reviewed the BRIANDA Note. I performed a substantive portion of the visit including all aspects of the following. My love findings include: History is [83-year-old male lives alone at home since 2018 when his . Said he fell Saturday night. He laid on the floor for maybe a day. To his neighbor came and found him. Complaining of left hip pain. Lower back pain. Disease and chronic low back pain since he had back surgery he had screws and plates placed. Denies hitting his head. Denies LOC. Denies recent illness.] Exam is [83-year-old male vital signs are stable afebrile. Currently no acute distress. Sitting upright in bed. No family present. H EENT exam pupils round reactive light. Motions are intact. No signs of trauma to his face or scalp. Nontender. Neck and trachea nontender. Lungs clear to auscultation bilaterally. Heart regular rhythm no murmur. Chest wall and ribs nontender. Abdomen soft, nontender, no peritoneal signs no bruising. Pelvic girdle intact. Mild tenderness left hip he is able to flex and extend it. No shortening or rotation. Normal dorsi and plantarflexion. Upper extremities are nontender. Normal credit analyst strength. Neurologically is awake and alert. Answering questions following commands.] Medical Decision Making [83-year-old male lives alone fell laying on the floor for a day. Will obtain screening labs and CPK. X-rays of pelvis and left hip show no fracture. Chronic arthritis.] Other additions or changes: [None] Lab Data Labs: Laboratory Results - last 24 hr 08/30/24 08/30/24 08/30/24 12:43 13:49 13:50 WBC 14.6 H RBC 3.10 L Hgb 10.0 L Hct 29.9 L MCV 96.5 H MCH 32.3 H MCHC 33.4 RDW Std Deviation 49.1 H RDW Coeff of Sloane 14.1 Plt Count 125 L MPV 10.4 Immature Gran % (Auto) 1.700 H Neut % (Auto) 81.8 H Lymph % (Auto) 7.1 L Harney % (Auto) 8.7 Eos % (Auto) 0.4 Baso % (Auto) 0.3 Absolute Neuts (auto) 11.9 H Absolute Lymphs (auto) 1.04 Nucleated RBC % 0 ESR 44 H Sodium 136 Potassium 4.4 Chloride 101 Carbon Dioxide 23.0 Anion Gap 12 BUN 62 H Creatinine 1.64 H Estim Creat Clear Calc 39.22 L Est GFR (MDRD) Non-Af 42 L BUN/Creatinine Ratio 37.9 H Glucose 117 H Calcium 8.7 Procalcitonin 0.43 H Urine Color Yellow Urine Clarity Clear Urine pH 5.0 Ur Specific Osborne 1.010 Urine Protein 30 H Urine Glucose (UA) Normal Urine Ketones Negative Urine Occult Blood Negative Urine Nitrite Negative Urine Bilirubin Negative Urine Urobilinogen Normal Ur Leukocyte Esterase Negative Urine RBC 0 SEEN Urine WBC 0 SEEN Ur Squamous Epith Cells 0 SEEN Urine Bacteria 0 SEEN Urine Mucus 0 SEEN Radiography Diagnostic Testing: Clinical Impression(s) from Imaging Studies Lumbar Spine X-Ray 08/30/24 11:11 IMPRESSION: Prior posterior instrumentation and spinal fixation at L3-5 with laminectomies. No acute fracture. Reading Location: [facility] Hip/Pelvis X-Ray 08/30/24 12:04 IMPRESSION: DEGENERATIVE OSTEOARTHROSIS. NO ACUTE FINDINGS. Reading Location: [facility] <Dr. Krishna Tejada MD - Last Filed: 08/30/24 12:41> MDM MDM Narrative Medical decision making narrative: I have personally performed a face to face assessment of the patient and have reviewed the BRIANDA Note. I performed a substantive portion of the visit including all aspects of the following. My love findings include: History is [83-year-old male lives alone at home since 2018 when his . Said he fell John night. He laid on the floor for maybe a day. To his neighbor came and found him. Complaining of left hip pain. Lower back pain. Disease and chronic low back pain since he had back surgery he had screws and plates placed. Denies hitting his head. Denies LOC. Denies recent illness.] Exam is [83-year-old male vital signs are stable afebrile. Currently no acute distress. Sitting upright in bed. No family present. H EENT exam pupils round reactive light. Motions are intact. No signs of trauma to his face or scalp. Nontender. Neck and trachea nontender. Lungs clear to auscultation bilaterally. Heart regular rhythm no murmur. Chest wall and ribs nontender. Abdomen soft, nontender, no peritoneal signs no bruising. Pelvic girdle intact. Mild tenderness left hip he is able to flex and extend it. No shortening or rotation. Normal dorsi and plantarflexion. Upper extremities are nontender. Normal credit analyst strength. Neurologically is awake and alert. Answering questions following commands.] Medical Decision Making [83-year-old male lives alone fell laying on the floor for a day. Will obtain screening labs and CPK. X-rays of pelvis and left hip show no fracture. Chronic arthritis.] Other additions or changes: [None] History & Record Review Discussion w/independent historian: Patient Additional record(s) reviewed:: Prior inpatient record, Prior outpatient record, Prior ED visit and Prior labs Lab Data Attestation: I reviewed the patient's lab results. Labs: Laboratory Results - last 24 hr 08/30/24 08/30/24 08/30/24 12:43 13:49 13:50 WBC 14.6 H RBC 3.10 L Hgb 10.0 L Hct 29.9 L MCV 96.5 H MCH 32.3 H MCHC 33.4 RDW Std Deviation 49.1 H RDW Coeff of Sloane 14.1 Plt Count 125 L MPV 10.4 Immature Gran % (Auto) 1.700 H Neut % (Auto) 81.8 H Lymph % (Auto) 7.1 L Harney % (Auto) 8.7 Eos % (Auto) 0.4 Baso % (Auto) 0.3 Absolute Neuts (auto) 11.9 H Absolute Lymphs (auto) 1.04 Nucleated RBC % 0 ESR 44 H Sodium 136 Potassium 4.4 Chloride 101 Carbon Dioxide 23.0 Anion Gap 12 BUN 62 H Creatinine 1.64 H Estim Creat Clear Calc 39.22 L Est GFR (MDRD) Non-Af 42 L BUN/Creatinine Ratio 37.9 H Glucose 117 H Calcium 8.7 Procalcitonin 0.43 H Urine Color Yellow Urine Clarity Clear Urine pH 5.0 Ur Specific Osborne 1.010 Urine Protein 30 H Urine Glucose (UA) Normal Urine Ketones Negative Urine Occult Blood Negative Urine Nitrite Negative Urine Bilirubin Negative Urine Urobilinogen Normal Ur Leukocyte Esterase Negative Urine RBC 0 SEEN Urine WBC 0 SEEN Ur Squamous Epith Cells 0 SEEN Urine Bacteria 0 SEEN Urine Mucus 0 SEEN Radiography Diagnostic Testing: Clinical Impression(s) from Imaging Studies Lumbar Spine X-Ray 08/30/24 11:11 IMPRESSION: Prior posterior instrumentation and spinal fixation at L3-5 with laminectomies. No acute fracture. Reading Location: [facility] Hip/Pelvis X-Ray 08/30/24 12:04 IMPRESSION: DEGENERATIVE OSTEOARTHROSIS. NO ACUTE FINDINGS. Reading Location: [facility] Lumbar spine x-ray, 3 views shows chronic changes. Degenerative joint changes. Old orthopedic surgery with hardware. But no acute disease. Interpreted by myself. Pelvis and left hip x-ray, 3 views, shows chronic arthritis. No fracture or dislocation. Interpreted by myself. Discharge Plan Dx/Rx/DC Orders Clinical Impression: Fall, Contusion of hip, left, Unable to ambulate Disposition Disposition: Acute [facility]
[2024-08-30] MEDS: Ondansetron 4 MG/2 ML Vial IV (11:48)
[2024-08-30] MEDS: fentaNYL 100 MCG/2 ML Ampul 50 MCG IV (11:49)
[2024-08-30 12:00] VITALS: O2SAT 79
--- NOTE | 2024-08-30 12:04 | RAD_ITS ---
PROCEDURE: HIP, UNI W/ PELVIS 2-3 VIEWS REASON FOR EXAM: 83-year-old male, lower back pain radiating into left hip x2 days. No known injury. TECHNIQUE: Two views of the left hip including pelvis. COMPARISON: None. FINDINGS: No fracture. No suspicious bone lesion. Severe bilateral hip arthrosis. Mild bilateral SI joint arthrosis. Soft tissues are unremarkable. See same day L-spine radiographs for discussion of lumbar findings. RAD/HIP, UNI W/ Pelvis 2-3 Views IMPRESSION: DEGENERATIVE OSTEOARTHROSIS. NO ACUTE FINDINGS. Reading Location: [id number]
[2024-08-30 12:56] LABS: Absolute Lymphocyte Count 1.04 X10^3/uL (0.83-4.51); Absolute Neutrophil Count 11.9 X10^3/uL (2.0-7.7); Basophil# 0.04 X10^3/uL; Basophil% 0.3 % (0-1); Eosinophil# 0.06 X10^3/uL; Eosinophils% 0.4 % (0-5); Hematocrit 29.9 % (40-54); Lymphocyte # 1.04 X10^3/ul (0.83-4.51); Lymphocyte % 7.1 % (19-41); Mean Corp Hgb Conc 33.4 g/dL (32-36); Mean Corpuscular Hgb 32.3 pg (27.0-32.0); Mean Corpuscular Volume 96.5 fL (80-94); Mean Platelet Vol. 10.4 fl (6.2-12.0); Monocyte# 1.27 X10^3/uL; Monocyte% 8.7 % (0-10); NRBC Flagged by Analyzer 0 % (0-5); Neutrophil # 11.89 X10^3/uL (2.7-7.7); Neutrophil % 81.8 % (47-70); Platelet Count 125 K/mm3 (150-450); RBC Distribution Width CV 14.1 % (11.6-14.6); RBC Distribution Width SD 49.1 fl (35.1-43.9); White Blood Count 14.6 K/mm3 (4.4-11.0)
[2024-08-30 13:09] LABS: Anion Gap 12 (5-15); BUN 62 mg/dL (4-19); BUN/Creat Ratio 37.9 RATIO (10-20); Calcium,Total 8.7 mg/dL (7.6-11.0); Chloride 101 mmol/L (98-108); Creatinine, Serum 1.64 mg/dL (0.70-1.20); EST Glomerular Filtration Rate 42 (>60); Estimated Creatinine Clearance 39.22 ml/min (50-250); Glucose 117 mg/dL (70-99); Potassium 4.4 mmol/L (3.3-5.1); Sodium Level 136 mmol/L (133-145)
[2024-08-30] MEDS: 0.9% Normal Saline (1000mL) 1,000 ML 999 ML IV (13:26)
--- NOTE | 2024-08-30 13:44 | PCM.HP.STD ---
HPI - General General Date of Admission: 08/30/24 Date of Service: 08/30/24 Chief Complaint: Intractable low back pain HPI Narrative ANA ROSA FABIAN, is a 83 M who presented to the emergency department at [facility] on 08/30/2024 with a chief complaint of intractable low back pain. He is a known history of lumbar surgery that on our imaging appears to be spinal fusion at L3-L5 with cement augmentation and prior laminectomies noted. On presentation, patient reported he lost his balance about 2 nights ago and was able to get up. He states that he slept on the ground. The next day his neighbor came up and helped him up and he has been ambulatory but had significant sore back and stiffness along with left hip pain since that point in time. He had no injury to his head or loss of consciousness. Patient reported he was able to ambulate some today but had significant difficulty and his pain was no better so he called. He is tried only Tylenol and is on moderate relief with that. He called EMS to bring him to the emergency department. He denied any tingling or numbness in his legs, he denied any changes in his bowel or bladder function. He did tried Tylenol without any much success and changes in his pain. Vital signs on presentation showed temperature of 97.6, heart rate 89, respiratory 16, blood pressure was 114/44 and pulse ox was 98% on room air. CBC showed a leukocytosis with a white count of 14.6, hemoglobin of 10 which is down some from his baseline of 12-13, and chronic thrombocytopenia. Chemistry panel showed stable CKD stage IIIb. Glucose was mildly elevated at 117 and recent hemoglobin A1c was found to be 5.9. We obtain a sed rate and CRP due to his back pain and his sed rate was slightly elevated at 44 but when corrected for age is normal. CRP was elevated 83.10. Procalcitonin was slightly elevated 0.43. His UA was not consistent with infection. Lumbar spine x-ray showed previous spinal fixation L3-L5 with laminectomies but no acute findings. Hip and pelvic x-rays showed severe bilateral hip arthrosis with mild SI joint arthrosis and lumbar spine findings as previous. CT of the lumbar spine was pursued due to pain to rule out any fracture. CT showed no acute lumbar findings. FOR[facility]LY [facility] Medical History Former smoker CVA (cerebrovascular accident due to intracerebral hemorrhage) Endocarditis Anemia Hyperlipidemia Hypokalemia Acute on chronic heart failure with preserved ejection fraction (HFpEF) CHF (congestive heart failure) Acute respiratory insufficiency Pleural effusion Hypoxia Pitting edema Elevated troponin HART (dyspnea on exertion) Allergic rhinitis Valvular heart disease Chronic anemia Chronic idiopathic thrombocytopenia Former tobacco use CKD (chronic kidney disease), stage III Anxiety and depression Hypertension High cholesterol Lumbar radiculopathy Home Medications ?Medication ?Instructions ?Recorded ?Last Taken ?Type ascorbic acid (vitamin C) 1,000 mg 1,000 mg PO Q12H 10/12/22 10/11/22 History tablet,extended release (Vitamin C ER) cholecalciferol (vitamin D3) 25 25 mcg PO DAILY 10/12/22 10/11/22 History mcg (1,000 unit) tablet (Vitamin D3) metoprolol tartrate 25 mg tablet 25 mg PO BID 10/12/22 10/11/22 History multivitamin 1 tab PO DAILY 10/12/22 10/11/22 History vitamin B12 1,000 mcg-folic acid 1 tab sublingual DAILY supplement 10/12/22 10/11/22 History 400 mcg sublingual tablet potassium chloride 10 mEq 10 meq PO DAILY #30 caps 06/08/24 Unknown Rx capsule,extended release furosemide 80 mg tablet (Lasix) 80 mg PO BID #120 tabs 06/24/24 Unknown Rx spironolactone 25 mg tablet 25 mg PO DAILY #60 tabs 06/24/24 Unknown Rx rosuvastatin 40 mg tablet 40 mg PO QDAY #90 tabs 08/04/24 Unknown Rx Allergy/AdvReac Type Severity Reaction Status Date / Time bee venom protein (honey Allergy Severe Anaphylaxis Verified 08/30/24 10:31 bee) (bee stings) morphine Allergy Shortness Verified 08/30/24 10:31 of breath Family History Mother Anemia Glaucoma Father Prostate cancer Surgical History History of appendectomy History of heart valve repair History of colonoscopy History of cholecystectomy History of tonsillectomy and adenoidectomy History of repair of rotator cuff S/P total knee replacement Heart valve replaced Social History household members: none Smoking Status: Former smoker how long ago did patient quit smoking: Smoked 1 ppd teen until quit 1967 after of his daughter. alcohol intake: never substance use type: does not use ROS Constitutional Constitutional: Denies anorexia, change in weight, chills, fatigue, fever(s), malaise, night sweats, weakness or other Eyes Eyes: Denies blurry vision, change in eye color, change in vision, discharge from eye(s), double vision, erythema, eye pain, loss of vision or other ENT HEENT: Denies abnormal hearing, dysphagia, ear pain, epistaxis, headache(s), hearing loss, nasal congestion, nasal discharge, post nasal drip, sinus pressure, sore throat or other Cardiovascular Cardiovascular: Denies chest pain, claudication, dyspnea on exertion, edema, lightheadedness, orthopnea, palpitations, paroxysmal nocturnal dyspnea, rapid heart rate, syncope or other Respiratory/Chest Respiratory/Chest: Denies cough, dyspnea, excessive phlegm production, hemoptysis, productive cough, shortness of breath at rest, shortness of breath with exertion, wheezing or other Gastrointestinal Gastrointestinal: Denies abdominal pain, coffee ground emesis, constipation, diarrhea, dyspepsia, hematemesis, hematochezia, loose stools, melena, nausea, vomiting or other Genitourinary Genitourinary: Denies burning urination, difficulty urinating, dysuria, hematuria, nocturia, urinary frequency, urinary hesitancy, urinary incontinence, urinary urgency or other Musculoskeletal Musculoskeletal: Reports back pain; Denies arthralgias, joint pain, joint stiffness, joint swelling, myalgias, neck pain or other Neurologic Neurologic: Reports abnormal gait; Denies abnormal speech, confusion, disequilibrium, dizziness, focal weakness, headache(s), numbness, paresthesias, seizure-like activity, seizures, syncope, tingling, tremor(s) or other Psychiatric Psychiatric: Denies anxiety, depression, homicidal ideation, suicidal ideation or other Endocrine Endocrinology: Denies change in body appearance, cold intolerance, excessive sweating, heat intolerance, polydipsia, polyuria or other Hematologic/Lymphatic Hematologic/Lymphatic: Denies anemia, easy bleeding, easy bruising, lymphadenopathy or other Allergic/Immunologic Allergic/Immunologic: Denies rhinitis, hives, eczemia, asthma or other Vital Signs Vital Signs Vital Signs: 08/30/24 10:31 08/30/24 12:00 Temperature 97.6 F L Temperature Source Oral Pulse Rate 89 Respiratory Rate 16 Blood Pressure 114/44 L Blood Pressure Mean 67 Pulse Ox 98 79 Oxygen Delivery Method Room Air Room Air Weight Weight: 97.1 kg Body Mass Index (BMI) 33.5 Physical Exam Const alert, oriented x3, no apparent distress, healthy appearing and well nourished; Negative for average body habitus Constitutional Narrative: Obese, elderly, white male, lying bed, appears comfortable at this time, nontoxic, does appear a bit uncomfortable with movement but not at rest General Appearance: cooperative HEENT normocephalic and head/scalp atraumatic HEENT Narrative: Dentition is poor, mild hearing loss, Mallampati is 3, no thrush Eyes EOMs intact bilaterally and conjunctivae normal Eyes Narrative: No scleral icterus Neck supple Neck Narrative: Trachea midline, no thyroid enlargement Cardio regular rate, regular rhythm, S1 normal heart sound, S2 normal heart sound, no murmurs, no rub, no gallops and no clicks GI normal to inspection, nondistended, normoactive bowel sounds, soft to palpation and non-tender Extremity no clubbing, cyanosis or edema Extremity Narrative: 2+ pedal pulses, 2+ radial pulses Neuro oriented x3 and no focal motor deficits Neuro Narrative: No sensory changes bilateral lower extremities, pain in back with straight leg raise bilaterally, no radicular symptoms, generalized weakness with no focal deficits bilateral lower extremities Speech: speech normal Psych affect normal Psych Narrative: Very pleasant, eye contact is good and patient interacts appropriately Results Lab / Micro Data 08/30/24 12:43 08/30/24 12:43 Labs: Laboratory Results - last 24 hr 08/30/24 12:43: WBC 14.6 H, RBC 3.10 L, Hgb 10.0 L, Hct 29.9 L, MCV 96.5 H, MCH 32.3 H, MCHC 33.4, RDW Std Deviation 49.1 H, RDW Coeff of [place]lo[place] 14.1, Plt Count 125 L, MPV 10.4, Immature Gran % (Auto) 1.700 H, Neut % (Auto) 81.8 H, Lymph % (Auto) 7.1 L, [place] % (Auto) 8.7, Eos % (Auto) 0.4, Baso % (Auto) 0.3, Absolute Neuts (auto) 11.9 H, Absolute Lymphs (auto) 1.04, Nucleated RBC % 0, Sodium 136, Potassium 4.4, Chloride 101, Carbon Dioxide 23.0, Anion Gap 12, BUN 62 H, Creatinine 1.64 H, Estim Creat Clear Calc 39.22 L, Est GFR (MDRD) Non-Af 42 L, BUN/Creatinine Ratio 37.9 H, Glucose 117 H, Calcium 8.7 Imaging Radiology Impression Lumbar Spine X-Ray 08/30/24 11:11 IMPRESSION: Prior posterior instrumentation and spinal fixation at L3-5 with laminectomies. No acute fracture. Reading Location: [facility] Hip/Pelvis X-Ray 08/30/24 12:04 IMPRESSION: DEGENERATIVE OSTEOARTHROSIS. NO ACUTE FINDINGS. Reading Location: [facility] Assessment & Plan Assessment/Plan (1) Anemia: (2) Lumbar back pain: (3) Unable to ambulate: (4) Leukocytosis: PLAN: Plan Intractable low back pain -Previous lumbar fusion and laminectomy from L3-L5 -CT does not show any occult fracture -Scheduled Tylenol 1 g every 8 -As needed oxycodone -Avoid NSAIDs with renal dysfunction -Gabapentin 200 mg 3 times daily -As needed tizanidine -Lidocaine patch -ESR is normal when corrected for age, CRP is elevated but not markedly elevated as I would expect in severe lumbar spine infection -Patient is unable to have MRI -PT/OT consultation Acute on chronic anemia -Hemoglobin at baseline as recently as 07/06/2024 was between 12 and 13 -Current hemoglobin 10.0 -Etiology is unclear and it is chronically macrocytic -Check iron studies -Check ferritin level -Check stool guaiac -If hemoglobin stable but lower would refer outpatient for follow-up Leukocytosis -Etiology is unclear -May be reactive -No current signs of infection noted -Trend Inability ambulate -PT/OT consultation -Case management consultation for assistance with discharge planning Chronic HFpEF/essential hypertension/hyperlipidemia -Continue home Lasix -Continue home metoprolol -Continue home Aldactone -Continue home statin -Continue home supplemental potassium History of aortic valve stenosis -Status post replacement Chronic thrombocytopenia -Platelet count is stable CKD stage IIIb -Renal function is at baseline -Monitor with ongoing home Lasix and Aldactone -Avoid NSAIDs Left renal cyst -Appears stable on serial CTs Obesity -Recommend weight loss -BMI is 32.6 -Complicates treatment, prognosis, outcomes DVT prophylaxis -Subcu Lovenox daily CODE STATUS -Full code as verified on admission Charges/Coding Visit Charges Inpatient E&M: 69752 Init Hosp L2
[2024-08-30] MEDS: fentaNYL 100 MCG/2 ML Ampul 25 MCG IV (13:52)
[2024-08-30 14:00] LABS: Bacteria 0 SEEN /hpf (None Seen); Mucous, Urine 0 SEEN /hpf (<or=2+); Squamous Epithelial Cells - UA 0 SEEN /hpf (0-5); White Blood Cells 0 SEEN /hpf (0-5)
[2024-08-30 14:03] LABS: Erythrocyte Sedimentation Rate 44 mm/hr (0-20)
[2024-08-30 14:04] LABS: Color, Urine Yellow (Yellow); Glucose, Dipstick Normal (Normal); Ketone-Dipstick Negative (Negative); Leukocyte Esterase-Dipstick Negative /ul (Negative); Nitrite-Dipstick Negative (Negative); Occult Blood-Urine Negative /ul (Negative); Protein-Dipstick 30 mg/dl (Negative); Urine Bilirubin Dipstick Negative (Negative); Urine Clarity Clear (Clear); Urine Urobilinogen Normal (Normal)
[2024-08-30 14:21] LABS: Red Blood Cells-Urine 0 SEEN /hpf (0-5)
[2024-08-30 14:23] LABS: Procalcitonin 0.43 ng/mL (<=0.10)
--- NOTE | 2024-08-30 14:35 | CASEMGMT ---
Care Management Face to Face with patient for initial transition planning/care coordination assessment in the ED.? This typewriter tester introduced self and role at [facility]. Patient alert and oriented. Patient willing to participate in assessment and is able to answer all questions appropriately.? Care providers, pharmacy, and demographics verified. Admitting Diagnosis: Lumbar back pain/fall/contusion of left hip and unable to ambulate Other diagnosis history: Including but may not be limited to: Lumbar surgery/ablation, CVA, Chronic Anemia, Hyperlipidemia, CHF, CKD, HTN, Anxiety and Depression PCP: AYSHA Ibarra Specialists: ?Can Inspector: Dr. Bundy and CLIENT SERVICES ASSISTANT Lindsay Trimble Preferred Pharmacy: [facility] Insurance: Medicare, part A and B and AARP Prescription Benefit: Yes Living Will/HPOA: ?Living Will; not on file LNOK: Patient is and has a son and a daughter, both of whom can be a support if needed. One lives in [place] and the other in [place]. Living Arrangements: Patient lives alone in a one-story home. Patient stated he has 13 steps he has to use to go in/out of his home. Patient stated he has two rails to hold on to and can normally navigate the steps without difficulty. Patient denied any environmental barriers. Transportation: Patient drives self DME: BSC, standard walker, grab bar by toilet, grab bar by shower, HHS, shower chair,? and lift chair. Patient is incontinent and is in need of incontinence supplies.? HHC: Never had and denied a current need. SNF/Rehab: Denied any history of either. Community Resources: No formal resources however patient stated there is an Fredis family who lives across the street from him that always looks after him, sends over food each day when they cook and sends over their kids to check on him each day to make sure he?s ok.? Patient also stated he private pays an individual in the community who assists with light housekeeping, laundry, runs errands and helps with whatever is needed. Behavioral Health History: Depression; patient stated it is managed with medication at this time. Patient goals: Patient wishes to discharge home, denies need for home health care at this time. Patient denies any further needs or concerns at this time. Disposition Plan: admission to acute; RN CM/SW to follow for discharge planning needs that may arise. Janet Caba, FINISHING OPERATOR, ENGINEERED WOOD DESIGNER
--- NOTE | 2024-08-30 14:44 | CT_ITS ---
PROCEDURE: SPINE LUMBAR WITHOUT CONTRAST REASON FOR EXAM: 83-year-old male, fall 2 days ago with persistent back pain. TECHNIQUE: Lumbar spine CT without contrast. COMPARISON: Same-day lumbar radiographs. FINDINGS: Prior posterior instrumentation and spinal fusion of the L3-5 vertebral bodies with cement augmentation and prior laminectomies. No evidence of hardware lucency or fracture. Vertebrae: Normal lumbar vertebral body heights. No evidence of acute fracture. Chronic mild anterolisthesis at L5-S1. Alignment: No traumatic listhesis. Moderate degenerative disc disease and uncovertebral facet hypertrophy results in at least moderate central stenosis and mild bilateral neural foraminal stenosis at L1-2. Sacrum: Visualized upper sacrum and SI joints are unremarkable. Calcific plaque of the aortoiliac vessels. Prior median sternotomy. CT/Spine Lumbar without Contrast IMPRESSION: NO ACUTE LUMBAR FRACTURE. DEGENERATIVE CHANGES. One or more dose reduction techniques were used (e.g., Automated exposure contr ol, adjustment of the mA and/or kV according to patient size, use of iterative reconstruction technique). Reading Location: [id number]
[2024-08-30 16:20] VITALS: BP 122/42; PULSE 102; RESP 20; TEMP 36.8; O2SAT 94; BMI 32.6
[2024-08-30 16:30] VITALS: PULSE 90
[2024-08-30] MEDS: Gabapentin 100 MG Capsule 200 MG PO (17:14)
[2024-08-30] MEDS: Furosemide 80 MG Tablet PO (17:14)
[2024-08-30 18:11] LABS: CPK Total, Creatine Kinase 68 U/L (24-195)
[2024-08-30] MEDS: HYDROmorphone Inj 0.2 MG/ML SYRINGE IV (18:52)
[2024-08-30] MEDS: tiZANidine HCl 2 MG Tablet 4 MG PO (18:52)
[2024-08-30] MEDS: 0.9% Saline Lock 10 ML Syringe IV (18:53)
[2024-08-30] MEDS: oxyCODONE 5 MG Tablet PO (19:53)
[2024-08-30 20:58] LABS: Ferritin 899 ng/mL (37-417); Iron 34 ug/dL (65-175); Iron Binding Capacity,Unsat 182 ug/dL (228-428)
[2024-08-30 21:30] VITALS: BP 125/53; PULSE 98; RESP 16; TEMP 36.8; O2SAT 98
[2024-08-30] MEDS: Acetaminophen 500 MG Tablet 1000 MG PO (21:35)
[2024-08-30] MEDS: Docusate Sodium 100 MG Capsule PO (21:35)
[2024-08-30] MEDS: Ascorbic Acid 500 MG Tablet 1000 MG PO (21:35)
[2024-08-30] MEDS: Atorvastatin Calcium 80 MG Tablet PO (21:35)
[2024-08-30 21:36] VITALS: PULSE 98
[2024-08-30] MEDS: Metoprolol Tartrate 25 MG Tablet PO (21:36)
[2024-08-30 22:02] LABS: Iron Binding Capacity,Total 216 ug/dL (250-450)
[2024-08-31] VITALS (9 sets, daily range): BP systolic 110–126; BP diastolic 40–54; PULSE 74–94; RESP 16–18; TEMP 36.6–36.8; O2SAT 96
[2024-08-31] MEDS: tiZANidine HCl 2 MG Tablet 4 MG PO ×2 (04:58→21:02)
[2024-08-31] MEDS: Acetaminophen 500 MG Tablet 1000 MG PO ×3 (04:59→21:00)
[2024-08-31] MEDS: oxyCODONE 5 MG Tablet PO ×3 (04:59→21:03)
[2024-08-31 06:59] LABS: Absolute Lymphocyte Count 0.81 X10^3/uL (0.83-4.51); Absolute Neutrophil Count 10.4 X10^3/uL (2.0-7.7); Basophil# 0.04 X10^3/uL; Basophil% 0.3 % (0-1); Eosinophil# 0.04 X10^3/uL; Eosinophils% 0.3 % (0-5); Hematocrit 26.9 % (40-54); Hemoglobin 8.5 g/dL (13.0-16.5); Lymphocyte # 0.81 X10^3/ul (0.83-4.51); Lymphocyte % 6.4 % (19-41); Mean Corp Hgb Conc 31.6 g/dL (32-36); Mean Corpuscular Hgb 30.9 pg (27.0-32.0); Mean Corpuscular Volume 97.8 fL (80-94); Mean Platelet Vol. 10.5 fl (6.2-12.0); Monocyte# 1.25 X10^3/uL; Monocyte% 9.9 % (0-10); NRBC Flagged by Analyzer 0 % (0-5); Platelet Count 104 K/mm3 (150-450); RBC Distribution Width CV 14.5 % (11.6-14.6); RBC Distribution Width SD 51.5 fl (35.1-43.9); Red Blood Count 2.75 M/mm3 (4.6-6.2); White Blood Count 12.7 K/mm3 (4.4-11.0)
[2024-08-31 08:07] LABS: ALB/GLOB Ratio 0.8 RATIO (0.9-2.4); AST(SGOT) 35 U/L (<=37); Alanine Aminotransfer ALT/SGPT 17 U/L (<=46); Albumin, Serum 2.8 g/dL (3.4-4.8); Alkaline Phosphatase 56 U/L (40-129); Anion Gap 11 (5-15); BUN 54 mg/dL (4-19); BUN/Creat Ratio 29.3 RATIO (10-20); Calcium,Total 8.3 mg/dL (7.6-11.0); Carbon Dioxide 21.2 mmol/L (21.0-32.0); Chloride 103 mmol/L (98-108); Creatinine, Serum 1.84 mg/dL (0.70-1.20); EST Glomerular Filtration Rate 36 (>60); Globulin 3.5 g/dL (2.2-4.2); Glucose 118 mg/dL (70-99); Magnesium 2.8 mg/dL (1.5-2.2); Phosphorus 4.8 mg/dL (2.7-4.5); Potassium 5.2 mmol/L (3.3-5.1); Protein, Total 6.3 g/dL (5.9-8.4); Sodium Level 136 mmol/L (133-145); Total Bilirubin 0.95 mg/dL (0.00-1.30)
--- NOTE | 2024-08-31 09:13 | PCM.PN.HOSP ---
Reason for Visit Reason for Visit: Diagnoses Anemia, unspecified (08/30/24) Elevated white blood cell count, unspecified (08/30/24) Low back pain, unspecified (08/30/24) Difficulty in walking, not elsewhere classified (08/30/24) Subjective Subjective Patient sitting up in chair, reports he feels a little bit weak and generally unwell when he is up moving around, said he is unsure about pain in his he did not report any just sitting there, still does not have bowel movement reports has been about 4 days, no abdominal pain or nausea, denies any blood in stool Objective Data Objective Data Vital Signs: Vital Signs Temp Pulse Resp BP Pulse Ox O2 Del Method O2 Flow Rate 98 F 82 16 111/49 L 96 Room Air 2 08/31/24 02:30 08/31/24 02:30 08/31/24 02:30 08/31/24 02:30 08/31/24 02:30 08/31/24 02:30 08/30/24 21:30 Oxygen Flow Rate (L/min) 2 Oxygen Delivery Method Room Air Weight: 94.5 kg Body Mass Index (BMI) 32.6 Intake & Output: Intake and Output for Last 24 Hours 08/29/24 08/31/24 08/31/24 23:59 00:59 23:59 Intake Total 1000 / 1000 Output Total 800 / 800 Balance 1000 / 700 -800 / -800 Lab / Micro Data 08/31/24 06:13 08/31/24 06:13 Labs: Laboratory Results - last 24 hr 08/30/24 12:43: WBC 14.6 H, RBC 3.10 L, Hgb 10.0 L, Hct 29.9 L, MCV 96.5 H, MCH 32.3 H, MCHC 33.4, RDW Std Deviation 49.1 H, RDW Coeff of Sloane 14.1, Plt Count 125 L, MPV 10.4, Immature Gran % (Auto) 1.700 H, Neut % (Auto) 81.8 H, Lymph % (Auto) 7.1 L, [place] % (Auto) 8.7, Eos % (Auto) 0.4, Baso % (Auto) 0.3, Absolute Neuts (auto) 11.9 H, Absolute Lymphs (auto) 1.04, Nucleated RBC % 0, ESR 44 H, Sodium 136, Potassium 4.4, Chloride 101, Carbon Dioxide 23.0, Anion Gap 12, BUN 62 H, Creatinine 1.64 H, Estim Creat Clear Calc 39.22 L, Est GFR (MDRD) Non-Af 42 L, BUN/Creatinine Ratio 37.9 H, Glucose 117 H, Calcium 8.7, Total Creatine Kinase 68 08/30/24 13:49: Iron 34 L, TIBC 216 L, Iron Saturation 16.0, Unsaturated IBC 182 L, Ferritin 899 H, C-React Prot Ext Range 83.10 H, Procalcitonin 0.43 H 08/30/24 13:50: Urine Color Yellow, Urine Clarity Clear, Urine pH 5.0, Ur Specific [place] 1.010, Urine Protein 30 H, Urine Glucose (UA) Normal, Urine Ketones Negative, Urine Occult Blood Negative, Urine Nitrite Negative, Urine Bilirubin Negative, Urine Urobilinogen Normal, Ur Leukocyte Esterase Negative, Urine RBC 0 SEEN, Urine WBC 0 SEEN, Ur Squamous Epith Cells 0 SEEN, Urine Bacteria 0 SEEN, Urine Mucus 0 SEEN 08/31/24 06:13: WBC 12.7 H, RBC 2.75 L, Hgb 8.5 L, Hct 26.9 L, MCV 97.8 H, MCH 30.9, MCHC 31.6 L D, RDW Std Deviation 51.5 H, RDW Coeff of [place]loane 14.5, Plt Count 104 L, MPV 10.5, Immature Gran % (Auto) 1.100 H, Neut % (Auto) 82.0 H, Lymph % (Auto) 6.4 L, [place] % (Auto) 9.9, Eos % (Auto) 0.3, Baso % (Auto) 0.3, Absolute Neuts (auto) 10.4 H, Absolute Lymphs (auto) 0.81 L, Nucleated RBC % 0, Sodium 136, Potassium 5.2 H, Chloride 103, Carbon Dioxide 21.2, Anion Gap 11, BUN 54 H, Creatinine 1.84 H, Estim Creat Clear Calc 34.50 L, Est GFR (MDRD) Non-Af 36 L, BUN/Creatinine Ratio 29.3 H, Glucose 118 H, Calcium 8.3, Phosphorus 4.8 H, Magnesium 2.8 H, Total Bilirubin 0.95, AST 35, ALT 17, Alkaline Phosphatase 56, Total Protein 6.3, Albumin 2.8 L, Globulin 3.5, Albumin/Globulin Ratio 0.8 L Radiography Diagnostic Testing: Radiology Impression Lumbar Spine X-Ray 08/30/24 11:11 IMPRESSION: Prior posterior instrumentation and spinal fixation at L3-5 with laminectomies. No acute fracture. Reading Location: [facility] Hip/Pelvis X-Ray 08/30/24 12:04 IMPRESSION: DEGENERATIVE OSTEOARTHROSIS. NO ACUTE FINDINGS. Reading Location: [facility] Lumbar Spine CT 08/30/24 14:44 IMPRESSION: NO ACUTE LUMBAR FRACTURE. DEGENERATIVE CHANGES. One or more dose reduction techniques were used (e.g., Automated exposure control, adjustment of the mA and/or kV according to patient size, use of iterative reconstruction technique). Reading Location: [facility] Physical Exam Narrative General: Alert, no apparent distress HEENT: Atraumatic, normocephalic Eyes: Anicteric, normal conjunctiva, extraocular movements grossly intact Neck: Supple Respiratory: Clear to auscultation bilaterally, normal respiratory effort Cardiovascular: Regular rate and rhythm GI: Soft, nontender, nondistended Extremities: No edema Musculoskeletal: Moving all extremities Neuro: No overt focal neurological deficits Skin: No rashes appreciated Psych: Cooperative but fairly flat affect Assessment & Plan Assessment/Plan (1) Lumbar back pain: PLAN: Plan #Intractable lower back pain -History of lumbar surgery that on our imaging appears to be spinal fusion at L3-L5 with cement augmentation and prior laminectomies noted -Had a fall 2 days ago after losing his balance and was unable to get up, neighbor helped him get up but he has had some soreness and stiffness since then prompting him to come to the ED -CRP over 83 and ESR slightly elevated at 44, Pro-Marcus slightly elevated at 0.43 -Lumbar x-ray showed previous spinal fixation of L3-5 with laminectomies but no acute findings and hip and pelvic x-rays with severe bilateral hip arthrosis with mild SI joint arthrosis -CT with no occult fracture -Tylenol scheduled -Gabapentin scheduled with oxycodone tizanidine as needed, lidocaine patch added -ESR is normal when corrected for age and CRP is elevated but not markedly elevated as 1 would expect with his severe lumbar spine infection, patient is unable to have MRI per documentation -PT/OT -Pain control as above # Acute on chronic anemia -Hemoglobin at baseline as recently as 07/06/2024 was between 12 and 13 -In the ED hemoglobin 10 and this a.m. 8.5 -Patient with ferritin of 899, iron of 34 and iron saturation 16% with TIBC of 216 -Appears to be mixed picture -Will start oral iron -Will check reticulocyte count -Awaiting fecal occult collection -Change Lovenox to SCDs -Will start PPI p.o. twice daily while awaiting fecal occult, fecal occult positive or if further drop tomorrow evening fecal occult not back will likely consult GI # CKD stage III b -[place] up from baseline, slight uptrend from yesterday -Avoid nephrotoxic agents -Daily BMPs -Patient was continued on 80 of Lasix twice daily which was listed on his home medications however appears his last fill of Lasix was only for 40 mg daily on 06/24/2024 -Patient dry and with bump in creatinine Lasix held, very gentle hydration, as patient appears euvolemic can consider resuming his Lasix # History of chronic heart failure preserved ejection fraction -Appears patient was filling 40 of Lasix daily but a prior fill of 80 twice daily was listed as home dose, this has been held, gentle hydration would resume Lasix when appropriate -Holding Aldactone given hyperkalemia and increase in creatinine noted also appears this has not been filled since June # History of AV stenosis -With replacement #DVT ppx: SCDs Lurdes King MD Charges/Coding Visit Charges Inpatient E&M: 73142 Subs Hosp L2
[2024-08-31] MEDS: Gabapentin 100 MG Capsule 200 MG PO ×3 (09:23→17:47)
[2024-08-31] MEDS: Spironolactone 25 MG Tablet PO (09:24)
[2024-08-31] MEDS: Enoxaparin 40 MG/0.4 ML Syringe SC (09:24)
[2024-08-31] MEDS: Ascorbic Acid 500 MG Tablet 1000 MG PO ×2 (09:24→21:20)
[2024-08-31] MEDS: Multivitamins,Therapeutic Tablet 1 TABLET PO (09:24)
[2024-08-31] MEDS: Furosemide 80 MG Tablet PO (09:24)
[2024-08-31] MEDS: Docusate Sodium 100 MG Capsule PO ×2 (09:25→20:58)
[2024-08-31] MEDS: Cholecalciferol (VIT D3) 25 MCG TABLET (1,000 UNITS) PO (09:25)
[2024-08-31] MEDS: Lidocaine 5% Patch 1 PATCH TOPICAL (09:25)
[2024-08-31] MEDS: Metoprolol Tartrate 25 MG Tablet PO ×2 (09:25→20:59)
[2024-08-31] MEDS: Menthol/Lanolin/Calamine/Znox 113 GM Tube 1 APPLIC TOPICAL ×2 (09:26→20:58)
[2024-08-31 09:50] LABS: Platelet Count 106 K/mm3 (150-450); RET-HE 35.2 pg (30-35); Reticulocyte Count 4.25 % (0.5-1.5)
[2024-08-31] MEDS: Polyethylene Glycol 3350 17 GM PACKET PO ×2 (11:32→20:59)
--- NOTE | 2024-08-31 13:21 | CASEMGMT ---
Discharge Planning A list of?SNF providers including quality and resource use data and consistent with the patient's preferred geographic region, medical needs, and insurance network was created in [employer] Guide.? This list was provided to the SW. Devorah Dominguez Discharge Planning Asst.
--- NOTE | 2024-08-31 13:41 | CASEMGMT ---
Social Work- SW attempted to meet with pt. Pt lying in bed, staring blankly and only intermittently responding to SW questions. SW will follow up with pt when he is more alert. JOSE ANGEL Dunn
[2024-08-31] MEDS: Iron Polysaccharide Complex 150 MG CAPSULE PO (13:42)
--- NOTE | 2024-08-31 15:05 | CASEMGMT ---
MARIA FERNANDA CM into pt room, pt lying in bed in no distress. Discussed with pt how he felt he did with therapy today. Pt states he would be agreeable to having therapy daily in a SNF and asks where he can go. Provided pt with a SNF list created by dc event sales assistant. Asked pt to review list for his top 3 preferences. Pt verbalized understanding. Then proceeded to discuss medic alert with patient and provided handout. Pt then closed his eyes and did not answer any more questions. Pt aware that SW will follow up with him.
--- NOTE | 2024-08-31 16:08 | CASEMGMT ---
Social Work- A list of SNF providers including quality and resource use data and consistent with the patient?s preferred geographic region, medical needs, and insurance network were provided from the [employer] Guide. Pt reports that he will review. SW to follow up. JOSE ANGEL Dunn
[2024-08-31] MEDS: 0.9% Normal Saline (1000mL) 1,000 ML 50 ML IV (17:46)
[2024-08-31] MEDS: Atorvastatin Calcium 80 MG Tablet PO (20:59)
[2024-08-31] MEDS: Pantoprazole Sodium 40 MG Tablet PO (21:02)
--- NOTE | 2024-09-01 00:05 | NURSING ---
pt was found lying in bed unresponsive not breathing during rounds @ 2353. Pt full code, code blue activated. CPR started. See code blue documentation.
--- NOTE | 2024-09-01 00:05 | NURSING ---
Voicemail left for son Phan Pablo and daughter Latosha Kay to call this RN.
--- NOTE | 2024-09-01 00:14 | PCM.HOSP.N ---
Hospitalist Note CODE TABITHA was called overhead at approximately 11:55 PM. Patient was found down and last seen well at approximately 11 PM. Patient was noted to be in PEA arrest was immediately treated via ACLS protocol with 4 serial doses of IV epinephrine in addition to IV sodium bicarbonate and IV naloxone. Unfortunately, the patient never responded to any of these measures being in persistent PEA arrest. Nursing left a message with his family to update them on his status.
[2024-09-01 00:17] LABS: Bedside Glucose 107 mg/dL (74-106)
--- NOTE | 2024-09-01 05:23 | NURSING ---
attempted to contact Latosha and Phan at this time, unsuccessful. voicemail left to call back unit.
--- NOTE | 2024-09-01 06:19 | NURSING ---
talked to pt daughter Latosha, Latosha will talk to brother first to discuss set up.
--- NOTE | 2024-09-01 16:17 | EXP.PCM_ITS ---
Preliminary Cause of Preliminary Cause of Preliminary Cause of : Cardiac arrhythmia Date of Admission: 08/30/24 Date of : 09/01/24 Principle Diagnosis Chronic heart failure Problem List: Active and Suspected Problems (Updated 08/30/24 @ 19:[address] Savita Sheth, DO) Anemia (Acute) Leukocytosis (Acute) Lumbar back pain (Acute) Unable to ambulate (Acute) Hospital Course 83-year-old male history of heart failure with preserved ejection fraction, CVA, chronic anemia, CKD stage IIIb, AV stenosis with replacement who presented [facility] ED 08/30/2024 with lower back pain. Had history of lumbar surgery with spinal fusion of L3-L5 with cement augmentation and prior laminectomies. Patient had lost his balance 2 nights prior to presentation had difficulty getting up until his neighbor came the next day and helped him up. Since that time he had been sore and stiff and had some left hip pain and lower back pain prompting him to come to the ED. White blood cell count 14.6 with a hemoglobin of 10 and chronic thrombocytopenia, ESR was normal when corrected for age and CRP was mildly elevated as well as very slight elevation in [place]us, lumbar x-rays with no acute process and CT scan of the lumbar spine obtained with no acute process. Per documentation patient unable to have MRI so he was admitted with conservative measures. ESR normal for age correction and CRP elevated but not markedly elevated to the point you to expect a severe lumbar infection. On the day after admission patient evaluated bedside, reports just sitting down he was not having any pain and he had no complaints other than feeling tired. Labs in the a.m. showed decreased white blood cell count despite no antibiotics, hemoglobin did downtrend to 8.5 but patient denied any kind of blood loss whatsoever and in fact had not had bowel movement in couple of days but no abdominal pain, nausea, no specific or acute complaints and was vitally stable. Patient placed back on his home diuretics on admission and the following day did have a bump up in creatinine then potassium of 5.2 so spironolactone and potassium were held and patient appeared dry so Lasix were held and he was given very gentle IV fluids, suspect that there may have been difficulty with compliance of medications at home. At 11 PM patient was stable on nursing rounds and vitals were normal with no new or acute complaints. Patient then found unresponsive in bed during rounds at 2353 and CODE BLUE was activated, CPR started. Patient was asystole and received CPR and epinephrine without ROSC achieved. Code was called by physician with time of 0005 on 09/01/2024. Suspect there may have been underlying arrhythmia that led to patient's passing given he had no new or acute complaints after admission felt his pain was better and was not even reporting the pain on my evaluation in the afternoon and he was stable vitally and otherwise roughly 45 minutes before he was found down. Family was contacted by staff overnight and informed of patient's passing
== END 2024-09-01 00:05 | DRG 552 ==
LOC: ED 14:55 → MS3 15:26
PROVIDERS: Physician Assistant; Admitting Provider Internal Medicine; Emergency Provider Emergency Medicine; PCP Nurse Practitioner Family; Visit Provider Internal Medicine
DX: M54.59 Other low back pain (principal); D69.3 Immune thrombocytopenic purpura; I13.0 Hypertensive heart and chronic kidney disease with heart failure and stage 1 through stage 4 chronic kidney disease, or unspecified chronic kidney disease; I50.32 Chronic diastolic (congestive) heart failure; N18.32 Chronic kidney disease, stage 3b; D53.9 Nutritional anemia, unspecified; E66.9 Obesity, unspecified; I46.2 Cardiac arrest due to underlying cardiac condition; D72.829 Elevated white blood cell count, unspecified; E78.00 Pure hypercholesterolemia, unspecified; E87.5 Hyperkalemia; R26.2 Difficulty in walking, not elsewhere classified; M16.0 Bilateral primary osteoarthritis of hip; Z68.32 Body mass index [BMI] 32.0-32.9, adult; Z98.1 Arthrodesis status; Z79.899 Other long term (current) drug therapy; Z86.73 Personal history of transient ischemic attack (TIA), and cerebral infarction without residual deficits; Z87.891 Personal history of nicotine dependence
CPT/HCPCS: 31500; 36415; 72100; 72131; 73502; 80048; 80053; 81001; 82550; 82728; 82962; 83540; 83550; 83735; 84100; 84145; 85025; 85045; 85652; 86140; 92950; 97162; 97166; 97802; 99285; A4216; J2310; J2405